=== PATIENT | male | born 1950 | race Caucasian/White ===

== ENCOUNTER 2017-08-22 11:30 | Inpatient (IN) | payer MEDICARE ==
[~2017-08-22] VITALS: Ht 175.3 cm; Wt 77.6 kg
[2017-08-22 11:25] VITALS: BP 130/80
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
[2017-08-22] MEDS ORDERED: ONDANSETRON 4 MG (ZOFRAN) ORAL DISSOLVE TAB PO PRN (12:45)
[2017-08-22] MEDS ORDERED: cloNIDine 0.1 MG (CATAPRES) TAB PO PRN (12:45)
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
--- NOTE | 2017-08-22 13:10 | PM&R Post Admission Assessment ---
Post Admission Physician Asses The preadmission screen agrees with the post admission assessment that the patient is a good candidate for inpatient rehabilitation. The patient will have a comprehensive program of inpatient rehabilitation with a goal of maximizing level of functional independence prior to discharge home with family and HHC. The patient will have PT/OT ninety minutes per day, each discipline, five days a week for gait, strengthening, conditioning, balance, ADLs, any patient/family/caregiver training as necessary. Speech therapy to do cognitive assessment and treat as indicated. Rehabilitation nursing to assist with bowel, bladder, skin, wound care, medication administration, pain management. 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 SCD's for DVT prophylaxis. He appears to be well motivated to participate in three hours of therapy a day. He should be able to tolerate three hours of therapy a day from a medical standpoint. He should benefit from the three hours of therapy a day. He has a reasonable discharge plan, reasonable discharge rehabilitation goals and a supportive family. He has various comorbidities that need to be closely monitored with medications and treatments adjusted on a daily basis as needed. These include: COPD DM Barriers to discharge for this patient who had been independent prior to this are for him to be modified independent to supervision for ADLs and mobility skills prior to discharge home with family and HHC, so as to lessen the burden of the caregivers. Risks for this patient include: 1. Fall 2. Fracture 3. DVT 4. Pulmonary embolism 5. Exacerbation of COPD 6. Skin breakdown 7. Contractures 8. Poorly controlled pain 9. Urinary retention 10. UTI 11. Respiratory infection 12. Aspiration 13. Poorly controlled DM Estimated Length of Stay: 21 days Prognosis: Rehab prognosis appears good for goal of discharge home with family and HHC modified independent to supervision for ADLs and mobility skills. WINDY BERKOWITZ MD Aug 22, 2017 13:10
[2017-08-22] MEDS ORDERED: CHLO473M MM (13:17)
[2017-08-22] MEDS ORDERED: INSU100V16 SQ (13:17)
[2017-08-22] MEDS ORDERED: NYST1000 PO (13:17)
[2017-08-22] MEDS ORDERED: CARV6.252 PEG (13:17)
[2017-08-22] MEDS ORDERED: DOCU50LI PEG (13:17)
[2017-08-22] MEDS ORDERED: PROT1PAC2 PEG (13:17)
[2017-08-22] MEDS ORDERED: INSU100V5 SQ (13:17)
[2017-08-22] MEDS ORDERED: DILT30TA PEG (13:17)
[2017-08-22] MEDS ORDERED: THIA100T12 PEG (13:17)
[2017-08-22] MEDS ORDERED: CLON0.1T PEG ×2 (13:17)
[2017-08-22] MEDS ORDERED: TAMS0.4C2 PEG (13:17)
[2017-08-22] MEDS ORDERED: CLON1TAB3 PEG (13:17)
[2017-08-22] MEDS ORDERED: POLY15DR14 OU (13:17)
[2017-08-22] MEDS ORDERED: FINA5TAB6 PEG (13:17)
[2017-08-22] MEDS ORDERED: LACT-72 PEG (13:17)
[2017-08-22] MEDS ORDERED: ALBU2.5V4 NEB (13:17)
[2017-08-22] MEDS ORDERED: ACET160E28 PEG (13:24)
[2017-08-22] MEDS: BENEFIBER (FROM DIETARY) DOCUMENTATION PURPOSE ONLY PO SCH ×2 (14:04→17:00)
[2017-08-22] MEDS: DILTIAZEM 30 MG (CARDIZEM) TAB PO SCH ×2 (14:21→20:57)
[2017-08-22] MEDS: ARTIFICAL TEARS 0.4 ML UNIT DOSE (REFRESH PLUS) OU SCH ×3 (14:21→20:57)
--- NOTE | 2017-08-22 14:26 | Therapy Group Daily Note ---
Therapy Daily Group Note Exercises Stretching Other/Notes Pt. attended group PT OT session. Pt. walked with SBA to from using FWW. Pt. with mask insitu for precautions however pt. would not leave mask on and stated he was very uncomfortable leaving it on and was assisted back to room after 35m attendance at group session. Introductions and socialization activity with table games i.e. cards, dominoes, and puzzle assembly. Pt did not reach forward to play at table etc. Activities included dynamic sitting, core strength and endurance, memorization, sequencing,visual motor and fine motor. this pt. very social, shared and participated well in all activities. In room after with young at hand and up in recliner with alarm insitu. Start Time: 13:00 Stop Time: 13:35 Total Billed Treatment Time: 35 Total Billed Treatment 1,GRP HANS WOOD ADOBE DEVELOPER Aug 22, 2017 14:25
[2017-08-22] MEDS: RT-ALBUTEROL/IPRATROPIUM 3 ML (DUONEB) VIAL INH SCH ×3 (14:49→21:55)
--- NOTE | 2017-08-22 14:51 | Occupational Ther Daily Note ---
OT Current Status-Daily Note Subjective Pt seen in room, up in recliner after group, agreeable to OT. Pt indicated that L forearm was sore from IV site Appearance Alert, cooperative, slow processing and moving Mental Status/Objective Functional [place] Measure 0=Not Assessed/NA 4=Minimal Assistance 1=Total Assistance 5=Supervision or Setup 2=Maximal Assistance 6=Modified [place] 3=Moderate Assistance 7=Complete [place] ADL-Treatment Functional [place] Measure 0=Not Assessed/NA 4=Minimal Assistance 1=Total Assistance 5=Supervision or Setup 2=Maximal Assistance 6=Modified [place] 3=Moderate Assistance 7=Complete IndependenceIRFPAI Quality Coding Scale 6 Independent with activity with or without an assistive device 5 Patient requires set up or clean up by helper. Patient completes activity by themselves 4 Supervision or touching assist (CGA). [place] provide cues , steadying assist 3 The helper provides less than half the effort to complete the activity 2 The helper provides more than half the effort to complete the activity 1 Dependent. The helper does all the effort to complete an activity 7 Patient refused to complete or attempt activity 9 The patient did not perform the activity before the current illness or injury 88 Not attempted due to Medical conditions or safety concerns Eating (FIM): 5 (Setup, supervision. Able to get food to mouth, get drink from can. has dentures) Eating (QC): 4 (supervision) Grooming (FIM): 5 (Supervision and skilled cues. Pt brushed upper denture two times and needed cue to brush lower one. Tried to put toothpaste on brush twice. Washed face and hands with setup, supervision, cues. Did not shave or brush hair (it is very short)) Oral Hygiene (QC): 4 (Supervision) Bathing (FIM): 3 (Skilled cues to wash each body part, sponge bath up in recliner. Help needed to wash lower legs and bottom. CGA to stand to wash bottom , FWW) Bathing Location: L Arm, R Arm, L Upper Leg, R Upper Leg, Chest, Abdomen, Perineal Area Shower/Bathe Self (QC): 3 Upper Body (FIM): 4 (Donned t shirt very slowly and with skilled cues. Help to pull shirt down. Cues to initiate and to continue donning. ) Upper Body Dressing (QC): 3 Lower Body Dressing (FIM): 2 (Help to place feet in pants and depends. Pt stood CGA, FWW with cues for hand placement. Assist needed to pull pants up in back. Able to get one slipper sock off but not other and unable to don them. Pt reported pain in his back when bending forward to put socks and pants on) Lower Body Dressing (QC): 2 On/Off Footwear (QC): 2 (Able to take on off but not other and unable to put socks on. 25%) Toileting (FIM): 1 (Assist needed to manage clothing and hygiene. ) Toileting Hygiene (QC): 1 Toilet/Commode Transfer (FIM): 3 (Mod assist off and on tall toilet, grab bar on R) Toilet Transfer (QC): 3 Pt was left up in recliner, chair alarm on, all needs met. Pt may benefit from regular recliner instead of power left chair because he tends to try to push foot rest down with his legs. Education OT Patient Education: Modified ADL techniques, Purpose of tx/functional activities, Safety issues, Transfer techniques Teaching Recipient: Patient Teaching Methods: Demonstration, Discussion Response to Teaching: Verbalize Understanding, Return Demonstration, Reinforcement Needed OT Short Term Goals Short Term Goals Time Frame: Sep 05, 2017 Eating(FIM): 5 Grooming(FIM): 5 Toileting(FIM): 3 Toilet/Commode Transfer(FIM): 4 Additional Short Term Goals: 1-Demonstrate ADL Tasks, 2-Verbalize Understanding , 3-ImproveStrength/Harmony 1=Demonstrate adherence to instructed precautions during ADL tasks. 2=Patient will verbalize/demonstrate understanding of assistive devices/ modifications for ADL. 3=Patient will improve strength/tolerance for activity to enable patient to perform ADL's. OT Cold Food Packer Goals Cold Food Packer Goals Time Frame: Sep 26, 2017 Eating (FIM): 6 Eating (QC): 6 Groomin Oral Hygiene (QC): 6 Bathing(FIM): 5 Shower/Bathe Self (QC): 5 Upper Body Dressing(FIM): 6 Upper Body Dressing (QC): 6 Lower Body Dressing(FIM): 6 Lower Body Dressing (QC): 6 On/Off Footwear (QC): 6 Toileting(FIM): 6 Toileting Hygiene (QC): 6 Toilet/Commode Transfer(FIM): 6 Toilet/Commode Transfer (QC): 6 Shower Transfer(FIM): 5 Comprehension(FIM): 4 Expression (FIM): 5 Social Interaction(FIM): 5 Problem Solving(FIM): 4 Memory(FIM): 4 Additional Goals: 1-Demonstrate ADL Tasks, 2-Verbalize Understanding, 3- ImproveStrength/Harmony 1=Demonstrate adherence to instructed precautions during ADL tasks. 2=Patient will verbalize/demonstrate understanding of assistive devices/ modifications for ADL. 3=Patient will improve strength/tolerance for activity to enable patient to perform ADL's. OT Education/Plan Problem List/Assessment Pt would benefit from skilled OT to increase his independence in basic self care to allow him to safely return to his home or other appropriate placement and to decrease caregiver burden. Discharge Recommendations Plan/Recommendations: Continue POC Treatment Plan/Plan of Care Patient would benefit from OT for education, treatment and training to promote independence in ADL's, mobility, safety and/or upper extremity function for ADL' s. Plan of Care: ADL Retraining, Functional Mobility, Group Exercise/Act as Ind ( educ, exercise, memory, socialization, funct activity, problem solving) Treatment Duration: Sep 26, 2017 Frequency: At least 5 of 7 days/Wk (IRF) Estimated Hrs Per Day: 1.5 hours per day (1.25 to 1.5 hours) Agreement: Yes Rehab Potential: Fair Time/GCodes Start Time: 13:35 Stop Time: 14:35 Total Time Billed (hr/min): 60 Billed Treatment Time visit, 60 minutes ADL SCHUYLER ALVARADO OT Aug 22, 2017 14:51
--- NOTE | 2017-08-22 14:53 | Physical Therapy Daily Note ---
PT Daily Note-Current Subjective Patient in recliner pre tx, agrees to PT, has no complaints of pain. Appearance Patient in recliner post tx with nurse call, phone, tray, all needs met, chair alarm on. Mental Status Patient Orientation: Person Attachments: PEG Tube Transfers Functional [place] Measure 0=Not Assessed/NA 4=Minimal Assistance 1=Total Assistance 5=Supervision or Setup 2=Maximal Assistance 6=Modified [place] 3=Moderate Assistance 7=Complete IndependenceIRFPAI Quality Coding Scale 6 Independent with activity with or without an assistive device 5 Patient requires set up or clean up by helper. Patient completes activity by themselves 4 Supervision or touching assist (CGA). [place] provide cues , steadying assist 3 The helper provides less than half the effort to complete the activity 2 The helper provides more than half the effort to complete the activity 1 Dependent. The helper does all the effort to complete an activity 7 Patient refused to complete or attempt activity 9 The patient did not perform the activity before the current illness or injury 88 Not attempted due to Medical conditions or safety concerns Weight Bearing Right Lower Extremity: Right Full Weight Bearing Left Lower Extremity: Left Full Weight Bearing Exercises Seated Therapy Exercises: Ankle pumps, Long arc quads, Hip flexion, Hamstring Curls, Hip abd/add Seated Reps: 20 Treatments functional strengthening Assessment Current Status: Fair Progress patient had a hard time with hip flexion due to weakness PT Property And Equipment Clerk Goals Property And Equipment Clerk Goals PT Care Home Goals Time Frame: Sep 26, 2017 Transfers (B,C,W/C) (FIM): 6 Sit to Lying (QC): 6 Lying-Sitting on Side/Bed(QC): 6 Sit to Stand (QC): 6 Rollin Roll Left to Right (QC): 6 Chair/Byx-ta-Mcqtc Xfer(QC): 6 Car Transfer (QC): 6 Does the Patient Walk: Yes Gait (FIM): 6 Gait distance (FIM): 3=150 ft Distance: >300' Walk 10 feet (QC): 6 Walk 10ft-Uneven Surface(QC): 6 Walk 50ft with 2 Turns (QC): 6 Walk 150 ft (QC): 6 Gait Level of Assist: 6 Gait Assistive Device: FWW Stairs (FIM): 5 # of Steps: 12 1 Step (curb) (QC): 5 4 Steps (QC): 5 12 Steps (QC): 5 Stairs Level Of Assist: 5 Picking up an Object (QC): 5 PT Plan Problem List Problem List: Activity Tolerance, Functional Strength, Safety, Balance, Gait, Transfer, Bed Mobility, ROM Treatment/Plan Treatment Plan: Continue Plan of Care Treatment Plan: Bed Mobility, Education, Functional Activity Harmony, Functional Strength, Group Therapy, Gait, Safety, Therapeutic Exercise, Transfers Treatment Duration: Sep 26, 2017 Frequency: At least 5 of 7 days/Wk (IRF) Estimated Hrs Per Day: 1.5 hours per day Patient and/or Family Agrees t: Yes Safety Risks/Education Patient Education: Correct Positioning, Safety Issues Teaching Recipient: Patient Teaching Methods: Demonstration, Discussion Response to Teaching: Reinforcement Needed Time/GCodes Time In: 1435 Time Out: 1445 Total Billed Treatment Time: 10 Total Billed Treatment 1 visit EX FREDY ROSS PT Aug 22, 2017 14:53
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
[2017-08-22] MEDS: inSUlin ASPART (NovoLOG) 1 UNIT/0.01 ML (CHARGE PER UNIT) SC SCH ×2 (16:23→21:04)
[2017-08-22] MEDS: CEFEPIME INJECTION 2,000 MG in NS (IVPB) 50 ML IV SCH ×2 (16:52→22:26)
[2017-08-22 18:28] VITALS: BP 120/75
[2017-08-22] MEDS: NYSTATIN ORAL SUSP 5 ML UDC PO SCH ×2 (18:46→23:59)
[2017-08-22] MEDS: clonazePAM 1 MG (KlonoPIN) TAB PO PRN (20:57)
[2017-08-22] MEDS: CHLORHEXIDINE 0.12% SOLN 15 ML (PERIDEX) UDC PO SCH (20:57)
[2017-08-22] MEDS: CARVEDILOL 6.25 MG (COREG) TAB PO SCH (20:57)
[2017-08-22] MEDS: DOCUSATE SODIUM 100 MG (COLACE) CAP PO SCH (20:57)
[2017-08-22] MEDS: cloNIDine 0.1 MG (CATAPRES) TAB PO SCH (20:58)
[2017-08-22] MEDS ORDERED: CIPROFLOXACIN 500 MG (CIPRO) TABLET PO SCH (21:00)
[2017-08-23] MEDS: RT-ALBUTEROL/IPRATROPIUM 3 ML (DUONEB) VIAL INH SCH ×6 (02:09→22:58)
[2017-08-23 05:00] VITALS: BP 127/79
[2017-08-23] MEDS: CEFEPIME INJECTION 2,000 MG in NS (IVPB) 50 ML IV SCH ×3 (05:45→23:06)
[2017-08-23] MEDS: NYSTATIN ORAL SUSP 5 ML UDC PO SCH ×4 (05:45→23:00)
[2017-08-23] MEDS: inSUlin ASPART (NovoLOG) 1 UNIT/0.01 ML (CHARGE PER UNIT) SC SCH ×4 (05:45→21:05)
[2017-08-23] MEDS: THIAMINE 100 MG (VITAMIN B-1) TAB PO SCH (05:45)
--- NOTE | 2017-08-23 07:55 | Physical Therapy Daily Note ---
PT Daily Note-Current Subjective Patient in recliner pre tx, agrees to PT, has complaints of back pain but will not rate. Nurse notified. Appearance Patient in recliner post tx with nurse call, phone, tray, chair alarm on, all needs met. Mental Status Patient Orientation: Person, Situation Transfers Functional [place] Measure 0=Not Assessed/NA 4=Minimal Assistance 1=Total Assistance 5=Supervision or Setup 2=Maximal Assistance 6=Modified [place] 3=Moderate Assistance 7=Complete IndependenceIRFPAI Quality Coding Scale 6 Independent with activity with or without an assistive device 5 Patient requires set up or clean up by helper. Patient completes activity by themselves 4 Supervision or touching assist (CGA). [place] provide cues , steadying assist 3 The helper provides less than half the effort to complete the activity 2 The helper provides more than half the effort to complete the activity 1 Dependent. The helper does all the effort to complete an activity 7 Patient refused to complete or attempt activity 9 The patient did not perform the activity before the current illness or injury 88 Not attempted due to Medical conditions or safety concerns Transfers (B, C, W/C) (FIM): 4 Sit to/from Stand: 4 CGA, cues for hand placement, has trouble placing his left hand Weight Bearing Right Lower Extremity: Right Full Weight Bearing Left Lower Extremity: Left Full Weight Bearing Gait Training Gait (FIM): 2 Distance: 120' Gait Level of Assist: 4 Gait Persons Needed: 1 Gait Assistive Device: FWW slow, shaky Exercises Seated Therapy Exercises: Ankle pumps, Long arc quads Seated Reps: 20 Assessment Current Status: Fair Progress improving endurance and strength PT Jail Goals Jail Goals PT Jail Goals Time Frame: Sep 26, 2017 Transfers (B,C,W/C) (FIM): 6 Sit to Lying (QC): 6 Lying-Sitting on Side/Bed(QC): 6 Sit to Stand (QC): 6 Rollin Roll Left to Right (QC): 6 Chair/Uaa-cp-Zzugh Xfer(QC): 6 Car Transfer (QC): 6 Does the Patient Walk: Yes Gait (FIM): 6 Gait distance (FIM): 3=150 ft Distance: >300' Walk 10 feet (QC): 6 Walk 10ft-Uneven Surface(QC): 6 Walk 50ft with 2 Turns (QC): 6 Walk 150 ft (QC): 6 Gait Level of Assist: 6 Gait Assistive Device: FWW Stairs (FIM): 5 # of Steps: 12 1 Step (curb) (QC): 5 4 Steps (QC): 5 12 Steps (QC): 5 Stairs Level Of Assist: 5 Picking up an Object (QC): 5 PT Plan Problem List Problem List: Activity Tolerance, Functional Strength, Safety, Balance, Gait, Transfer, Bed Mobility, ROM Treatment/Plan Treatment Plan: Continue Plan of Care Treatment Plan: Bed Mobility, Education, Functional Activity Harmony, Functional Strength, Group Therapy, Gait, Safety, Therapeutic Exercise, Transfers Treatment Duration: Sep 26, 2017 Frequency: At least 5 of 7 days/Wk (IRF) Estimated Hrs Per Day: 1.5 hours per day Patient and/or Family Agrees t: Yes Safety Risks/Education Patient Education: Gait Training, Transfer Techniques, Correct Positioning, Safety Issues Teaching Recipient: Patient Teaching Methods: Demonstration, Discussion Response to Teaching: Reinforcement Needed Time/GCodes Time In: 735 Time Out: 750 Total Billed Treatment Time: 15 Total Billed Treatment 1 visit GT 10' EX 5' FREDY STANLEY PT Aug 23, 2017 07:55
[2017-08-23] MEDS: ARTIFICAL TEARS 0.4 ML UNIT DOSE (REFRESH PLUS) OU SCH ×4 (08:44→20:10)
[2017-08-23] MEDS: ACETAMINOPHEN 500 MG TAB (TYLENOL) PO PRN (08:44)
[2017-08-23] MEDS: CHLORHEXIDINE 0.12% SOLN 15 ML (PERIDEX) UDC PO SCH ×2 (08:44→20:10)
[2017-08-23] MEDS: ALFUZOSIN HCL 10 MG TAB (UROXATRAL) PO SCH (08:45)
[2017-08-23] MEDS: cloNIDine 0.1 MG (CATAPRES) TAB PO SCH ×2 (08:45→20:10)
[2017-08-23] MEDS: CARVEDILOL 6.25 MG (COREG) TAB PO SCH ×2 (08:45→20:10)
[2017-08-23] MEDS: DILTIAZEM 30 MG (CARDIZEM) TAB PO SCH ×3 (08:45→20:11)
[2017-08-23] MEDS: inSUlin DETERMIR 1 UNIT/0.01 ML (LEVEMIR) CHARGE PER UNIT SQ SCH (08:45)
[2017-08-23] MEDS: FINASTERIDE (PROSCAR) 5 MG TAB PO SCH (08:45)
[2017-08-23] MEDS: DOCUSATE SODIUM 100 MG (COLACE) CAP PO SCH ×2 (08:45→20:10)
[2017-08-23 17:11] VITALS: BP 114/72
[2017-08-24] MEDS: RT-ALBUTEROL/IPRATROPIUM 3 ML (DUONEB) VIAL INH SCH ×5 (02:38→18:13)
[2017-08-24 06:00] VITALS: BP 113/81
[2017-08-24] MEDS: THIAMINE 100 MG (VITAMIN B-1) TAB PO SCH (06:04)
[2017-08-24] MEDS: CEFEPIME INJECTION 2,000 MG in NS (IVPB) 50 ML IV SCH ×3 (06:04→23:25)
[2017-08-24] MEDS: NYSTATIN ORAL SUSP 5 ML UDC PO SCH ×4 (06:04→23:25)
[2017-08-24] MEDS: inSUlin ASPART (NovoLOG) 1 UNIT/0.01 ML (CHARGE PER UNIT) SC SCH ×4 (06:26→20:24)
[2017-08-24 09:10] VITALS: BP 118/72
[2017-08-24] MEDS: cloNIDine 0.1 MG (CATAPRES) TAB PO SCH ×2 (09:11→20:25)
[2017-08-24] MEDS: DILTIAZEM 30 MG (CARDIZEM) TAB PO SCH ×3 (09:11→20:24)
[2017-08-24] MEDS: ARTIFICAL TEARS 0.4 ML UNIT DOSE (REFRESH PLUS) OU SCH ×4 (09:11→20:25)
[2017-08-24] MEDS: DOCUSATE SODIUM 100 MG (COLACE) CAP PO SCH ×2 (09:11→20:25)
[2017-08-24] MEDS: CARVEDILOL 6.25 MG (COREG) TAB PO SCH ×2 (09:11→20:25)
[2017-08-24] MEDS: CHLORHEXIDINE 0.12% SOLN 15 ML (PERIDEX) UDC PO SCH ×2 (09:12→20:25)
[2017-08-24] MEDS: FINASTERIDE (PROSCAR) 5 MG TAB PO SCH (09:12)
[2017-08-24] MEDS: ALFUZOSIN HCL 10 MG TAB (UROXATRAL) PO SCH (09:12)
[2017-08-24] MEDS: inSUlin DETERMIR 1 UNIT/0.01 ML (LEVEMIR) CHARGE PER UNIT SQ SCH (09:18)
[2017-08-24 17:35] VITALS: BP 106/70
[2017-08-25] MEDS: inSUlin ASPART (NovoLOG) 1 UNIT/0.01 ML (CHARGE PER UNIT) SC SCH ×4 (04:48→21:46)
[2017-08-25 05:49] VITALS: BP 116/74
[2017-08-25] MEDS: NYSTATIN ORAL SUSP 5 ML UDC PO SCH ×4 (06:30→23:06)
[2017-08-25] MEDS: CEFEPIME INJECTION 2,000 MG in NS (IVPB) 50 ML IV SCH ×3 (06:30→23:06)
[2017-08-25] MEDS: THIAMINE 100 MG (VITAMIN B-1) TAB PO SCH (06:30)
[2017-08-25] MEDS: RT-ALBUTEROL/IPRATROPIUM 3 ML (DUONEB) VIAL INH SCH ×3 (06:56→19:12)
[2017-08-25] MEDS: DOCUSATE SODIUM 100 MG (COLACE) CAP PO SCH ×2 (08:18→21:46)
[2017-08-25] MEDS: CARVEDILOL 6.25 MG (COREG) TAB PO SCH ×2 (08:18→21:46)
[2017-08-25] MEDS: cloNIDine 0.1 MG (CATAPRES) TAB PO SCH ×2 (08:18→21:46)
[2017-08-25] MEDS: CHLORHEXIDINE 0.12% SOLN 15 ML (PERIDEX) UDC PO SCH ×2 (08:18→21:45)
[2017-08-25] MEDS: ARTIFICAL TEARS 0.4 ML UNIT DOSE (REFRESH PLUS) OU SCH ×4 (08:19→21:45)
[2017-08-25] MEDS: ALFUZOSIN HCL 10 MG TAB (UROXATRAL) PO SCH (08:19)
[2017-08-25] MEDS: DILTIAZEM 30 MG (CARDIZEM) TAB PO SCH ×3 (08:19→21:45)
[2017-08-25] MEDS: inSUlin DETERMIR 1 UNIT/0.01 ML (LEVEMIR) CHARGE PER UNIT SQ SCH (08:19)
[2017-08-25] MEDS: FINASTERIDE (PROSCAR) 5 MG TAB PO SCH (08:19)
--- NOTE | 2017-08-25 08:59 | Physical Therapy Daily Note ---
PT Daily Note-Current Subjective Patient in recliner pre tx, agrees to PT, has complaints of pain in his hand when using the walker but will not give a pain level. No pain at rest. Appearance Patient in recliner post tx with nurse call,phone, tray, chair alarm on, all needs met. Mental Status Patient Orientation: Person, Situation Transfers Functional [place] Measure 0=Not Assessed/NA 4=Minimal Assistance 1=Total Assistance 5=Supervision or Setup 2=Maximal Assistance 6=Modified [place] 3=Moderate Assistance 7=Complete IndependenceIRFPAI Quality Coding Scale 6 Independent with activity with or without an assistive device 5 Patient requires set up or clean up by helper. Patient completes activity by themselves 4 Supervision or touching assist (CGA). [place]ie provide cues , steadying assist 3 The helper provides less than half the effort to complete the activity 2 The helper provides more than half the effort to complete the activity 1 Dependent. The helper does all the effort to complete an activity 7 Patient refused to complete or attempt activity 9 The patient did not perform the activity before the current illness or injury 88 Not attempted due to Medical conditions or safety concerns Transfers (B, C, W/C) (FIM): 4 Sit to/from Stand: 4 CGA, cues for safety and hand placement, will try to keep hands on walker to stand and sit every time unless cued to do it correctly Weight Bearing Right Lower Extremity: Right Full Weight Bearing Left Lower Extremity: Left Full Weight Bearing Gait Training Gait (FIM): 4 Distance: 100'x2, 200'x2 Gait Level of Assist: 4 Gait Persons Needed: 1 Gait Assistive Device: FWW CGA, slow ambulation, cues for direction Exercises LAQ alternating for 5 min with 2# ankle weights NuStep Minutes: 15 NuStep Workload: 5 Treatments transfers, ambulation, functional strengthening to improve ambulation Assessment Current Status: Fair Progress improving endurance, gets distracted easily and needs reoriented PT Reel Worker Goals Reel Worker Goals PT Detention Goals Time Frame: Sep 26, 2017 Transfers (B,C,W/C) (FIM): 6 Sit to Lying (QC): 6 Lying-Sitting on Side/Bed(QC): 6 Sit to Stand (QC): 6 Rollin Roll Left to Right (QC): 6 Chair/Ksk-wg-Gfqmb Xfer(QC): 6 Car Transfer (QC): 6 Does the Patient Walk: Yes Gait (FIM): 6 Gait distance (FIM): 3=150 ft Distance: >300' Walk 10 feet (QC): 6 Walk 10ft-Uneven Surface(QC): 6 Walk 50ft with 2 Turns (QC): 6 Walk 150 ft (QC): 6 Gait Level of Assist: 6 Gait Assistive Device: FWW Stairs (FIM): 5 # of Steps: 12 1 Step (curb) (QC): 5 4 Steps (QC): 5 12 Steps (QC): 5 Stairs Level Of Assist: 5 Picking up an Object (QC): 5 PT Plan Problem List Problem List: Activity Tolerance, Functional Strength, Safety, Balance, Gait, Transfer, Bed Mobility, ROM Treatment/Plan Treatment Plan: Continue Plan of Care Treatment Plan: Bed Mobility, Education, Functional Activity Harmony, Functional Strength, Group Therapy, Gait, Safety, Therapeutic Exercise, Transfers Treatment Duration: Sep 26, 2017 Frequency: At least 5 of 7 days/Wk (IRF) Estimated Hrs Per Day: 1.5 hours per day Patient and/or Family Agrees t: Yes Safety Risks/Education Patient Education: Gait Training, Transfer Techniques, Correct Positioning, Safety Issues Teaching Recipient: Patient Teaching Methods: Demonstration, Discussion Response to Teaching: Reinforcement Needed Time/GCodes Time In: 800 Time Out: 859 Total Billed Treatment Time: 59 Total Billed Treatment 1 visit EX 20' FA 10' GT 29' FREDY STANLEY PT Aug 25, 2017 08:59
[2017-08-25] MEDS: ACETAMINOPHEN 500 MG TAB (TYLENOL) PO PRN (10:38)
--- NOTE | 2017-08-25 12:59 | Occupational Ther Daily Note ---
OT Current Status-Daily Note Subjective Pt seen in room, up in recliner, agreeable to OT. No pain mentioned. Appearance Alert, cooperative Mental Status/Objective Functional [place] Measure 0=Not Assessed/NA 4=Minimal Assistance 1=Total Assistance 5=Supervision or Setup 2=Maximal Assistance 6=Modified [place] 3=Moderate Assistance 7=Complete [place] ADL-Treatment Pt was agreeable to sponge bath and changing clothes. He needed setup, supervision and skilled cues to initiate individual steps in activities. When bathing, after he washed arms, OT said, "What's next?" and he replied, "I don't know." He did indicate that wringing out wash cloth hurt his L hand and wrist so technique modified. At end of tx, pt left up in recliner, chair alarm on, eating lunch, all needs met. Functional [place] Measure 0=Not Assessed/NA 4=Minimal Assistance 1=Total Assistance 5=Supervision or Setup 2=Maximal Assistance 6=Modified [place] 3=Moderate Assistance 7=Complete IndependenceIRFPAI Quality Coding Scale 6 Independent with activity with or without an assistive device 5 Patient requires set up or clean up by helper. Patient completes activity by themselves 4 Supervision or touching assist (CGA). [place] provide cues , steadying assist 3 The helper provides less than half the effort to complete the activity 2 The helper provides more than half the effort to complete the activity 1 Dependent. The helper does all the effort to complete an activity 7 Patient refused to complete or attempt activity 9 The patient did not perform the activity before the current illness or injury 88 Not attempted due to Medical conditions or safety concerns Eating (FIM): 5 (Needed skilled cues to initiate eating. Setup. Pt up in recliner to eat. ) Grooming (FIM): 5 (Washed face and hands with cues to intiate, setup, supervision) Bathing (FIM): 5 (Washed and dried all parts except back but skilled cues needed to wash each part. SBA to stand to wash michael and bottom, FWW) Upper Body (FIM): 4 (setup to don clean t shirt but he put R arm in neck hole and was unable to problem solve to correct it without help) Lower Body Dressing (FIM): 3 (Able to get slipper socks off but not put them on. Difficulty getting feet into Depends but could get shorts on over feet. Reported back pain when bending forward for dressing. FWW. SBA to stand to pull pants up. ) Frequent reminders for hand placement for sit to stand and stand to sit. Education OT Patient Education: Modified ADL techniques, Purpose of tx/functional activities, Transfer techniques Teaching Recipient: Patient Teaching Methods: Demonstration, Discussion Response to Teaching: Verbalize Understanding, Return Demonstration, Reinforcement Needed OT Short Term Goals Short Term Goals Time Frame: Sep 05, 2017 Eating(FIM): 5 Grooming(FIM): 5 Toileting(FIM): 3 Toilet/Commode Transfer(FIM): 4 Additional Short Term Goals: 1-Demonstrate ADL Tasks, 2-Verbalize Understanding , 3-ImproveStrength/Harmony 1=Demonstrate adherence to instructed precautions during ADL tasks. 2=Patient will verbalize/demonstrate understanding of assistive devices/ modifications for ADL. 3=Patient will improve strength/tolerance for activity to enable patient to perform ADL's. OT Fpc Goals Fpc Goals Time Frame: Sep 26, 2017 Eating (FIM): 6 Eating (QC): 6 Groomin Oral Hygiene (QC): 6 Bathing(FIM): 5 Shower/Bathe Self (QC): 5 Upper Body Dressing(FIM): 6 Upper Body Dressing (QC): 6 Lower Body Dressing(FIM): 6 Lower Body Dressing (QC): 6 On/Off Footwear (QC): 6 Toileting(FIM): 6 Toileting Hygiene (QC): 6 Toilet/Commode Transfer(FIM): 6 Toilet/Commode Transfer (QC): 6 Shower Transfer(FIM): 5 Comprehension(FIM): 4 Expression (FIM): 5 Social Interaction(FIM): 5 Problem Solving(FIM): 4 Memory(FIM): 4 Additional Goals: 1-Demonstrate ADL Tasks, 2-Verbalize Understanding, 3- ImproveStrength/Harmony 1=Demonstrate adherence to instructed precautions during ADL tasks. 2=Patient will verbalize/demonstrate understanding of assistive devices/ modifications for ADL. 3=Patient will improve strength/tolerance for activity to enable patient to perform ADL's. OT Education/Plan Problem List/Assessment Pt would benefit from skilled OT to increase his independence in basic self care to allow him to safely return to his home or other appropriate placement and to decrease caregiver burden. Discharge Recommendations Plan/Recommendations: Continue POC Treatment Plan/Plan of Care Patient would benefit from OT for education, treatment and training to promote independence in ADL's, mobility, safety and/or upper extremity function for ADL' s. Plan of Care: ADL Retraining, Functional Mobility, Group Exercise/Act as Ind ( educ, exercise, memory, socialization, funct activity, problem solving) Treatment Duration: Sep 26, 2017 Frequency: At least 5 of 7 days/Wk (IRF) Estimated Hrs Per Day: 1.5 hours per day (1.25 to 1.5 hours) Agreement: Yes Rehab Potential: Fair Time/GCodes Start Time: 11:05 Stop Time: 12:05 Total Time Billed (hr/min): 60 Billed Treatment Time visit, 60 minutes ADL SCHUYLER ALVARADO OT Aug 25, 2017 12:59
--- NOTE | 2017-08-25 13:15 | PM & R (SOAP) Progress Note ---
Subjective Time Seen by Provider: 12:50 Subjective/Events-last exam Patient was seen in his room this afternoon Patient min assist for transfers Accucheks noted Objective Exam Last Set of Vital Signs Vital Signs Date Time Temp Pulse Resp B/P (MAP) Pulse Ox O2 Delivery O2 Flow Rate FiO2 08/25/17 10:26 94 Room Air 08/25/17 05:49 98.1 87 17 116/74 Capillary Refill : Less Than 3 Seconds I&O Intake and Output 08/26/17 00:00 Intake Total 450 ml Balance 450 ml Intake Oral 250 ml Tube Feeding 200 ml # Voids 2 General: Alert, Cooperative, No Acute Distress HEENT: Atraumatic, PERRLA, EOMI, Mucous Memb Moist/[place] Neck: Supple, No JVD Lungs: Clear to Auscultation Heart: Regular Rate Abdomen: Normal Bowel Sounds, Soft, No Tenderness, Other Extremities: No Edema (Strength 4-/5) Results Lab Laboratory Tests 08/22/17 16:03: Glucometer 144H 08/22/17 20:37: Glucometer 117H 08/23/17 05:37: Glucometer 81 08/23/17 10:44: Glucometer 97 08/23/17 15:11: Glucometer 57*L 08/23/17 15:33: Glucometer 66L 08/23/17 20:23: Glucometer 129H 08/24/17 06:18: Glucometer 92 08/24/17 11:05: Glucometer 111H 08/24/17 16:15: Glucometer 57*L 08/24/17 17:14: Glucometer 95 08/24/17 20:24: Glucometer 86 08/25/17 04:44: Glucometer 91 08/25/17 10:50: Glucometer 136H Assessment/Plan Assessment TBI with encephalopathy improving s/p decannulation S/P PEG on po feeds Frx left elbow s/p repair MRSA in sputum with contact precautions Plan Continue Pt/OT Team Conference 08-27-17 WINDY BERKOWITZ MD Aug 25, 2017 13:15
--- NOTE | 2017-08-25 13:22 | Individualized Plan of Care ---
Individualized Plan of Care Rehab Nursing IPOC Order Admission Date Aug 22, 2017 at 11:30 Current Orders Orders Admission-Acute Rehab Unit (08/22/17 13:01) Vital Signs: Routine 08,16,00 (08/22/17 13:01) Manager Engine-Inpt Rehab (08/22/17 13:01) Rehab Nursing Orders-Ipoc (08/22/17 13:01) Physical Therapy Rehab Orders (08/22/17 13:01) Occupational Therapy Rehab Ord (08/22/17 13:01) Speech Therapy Rehab Orders (08/22/17 13:01) Intake & Output 06,14,22 (08/22/17 13:01) Precautions (Aru) (08/22/17 13:01) Admission (Physician Order) (08/22/17 12:42) Code/Resuscitation (08/22/17 12:42) Initiate Admission Nursing Pro .admission (08/22/17 12:42) Isolation Central Supply Req (08/22/17 12:42) Occupational Therapy Rehab Ord (08/22/17 12:42) Request For Cognitive Services (08/22/17 12:42) Accucheck Achs ACHS (08/22/17 12:42) Carboxymethylcell Ophth Soln (Refresh Pl (08/22/17 13:00) Guar Gum (Benefiber (From Dietary) Docum (08/22/17 13:00) Carvedilol Tablet (Coreg Tablet) (08/22/17 21:00) Pharmacy Communication (Pharmacy Communi (08/22/17 12:45) Clonidine Tablet (Catapres Tablet) (08/22/17 21:00) Diltiazem Tablet (Cardizem Tablet) (08/22/17 13:00) Docusate Sodium Capsule (Colace Capsule) (08/22/17 21:00) Finasteride Tablet (Proscar Tablet) (08/23/17 09:00) Insulin Aspart (Novolog) (Novolog (Charg (08/22/17 16:00) Insulin Determir (Per Unit) (Levemir (Pe (08/23/17 09:00) Nystatin Oral Suspension (Mycostatin O (08/22/17 18:00) Thiamine Tablet (Vitamin B-1 Tablet) (08/23/17 07:00) Acetaminophen Tablet (Tylenol Tablet) (08/22/17 12:45) Albuterol/Ipra Inhalation Soln (Duoneb I (08/22/17 14:00) Svn Sm Volume Nebulizer Rt-Rfs (08/22/17 12:42) Clonazepam Tablet (Klonopin Tablet) (08/22/17 12:45) Clonidine Tablet (Catapres Tablet) (08/22/17 12:45) Ondansetron Oral Dissolve Tab (Zofran (08/22/17 12:45) Ciprofloxacin Tablet (Cipro Tablet) (08/22/17 21:00) Patient Visit (08/22/17 ) Speech Sound Lang Comp (08/22/17 ) Cho 60g/M 1snack (16-2000 Demlar) (08/22/17 Lunch) Cefepime Injection (Maxipime Injection) (08/22/17 15:00) Ciprofloxacin Tablet (Cipro Tablet) (08/28/17 09:00) Chlorhexidine 0.12% Oral Soln (Peridex 0 (08/22/17 21:00) Alfuzosin Tablet (Uroxatral Tablet) (08/23/17 09:00) Patient Visit (08/22/17 ) Pt Eval Moderate Complexity (08/22/17 ) Functional Activities, Ea 15 (08/22/17 ) Patient Visit (08/22/17 ) Therapeutic, Group (08/22/17 ) Patient Visit (08/22/17 ) Exercise Therap, Ea 15 Min (08/22/17 ) Cho 60g/M 1snack (16-2000 [place]) (08/22/17 Lunch) Consult Physician (08/22/17 17:45) Disposal Tray (Paper/Plastic) (08/22/17 18:55) Patient Visit (08/23/17 ) Gait Training, Ea 15 Min (08/23/17 ) Automatic Tray (08/23/17 10:57) Albuterol/Ipra Inhalation Soln (Duoneb I (08/25/17 07:00) Rehab Nursing Orders: Diseage Management, Edu in Press Rel Techn, Hydration Management, Nutrition Management, Pain Management Other Nursing Orders: Monitor for urinary retention and constipation Intensity of Therapy to be met Patient to be seen: Min.3h per day/5 of 7d PT IPOC Problem List: Activity Tolerance, Functional Strength, Safety, Balance, Gait, Transfer, Bed Mobility, ROM Treatment Plan: Continue Plan of Care Bed Mobility, Education, Functional Activity Harmony, Functional Strength, Group Therapy, Gait, Safety, Therapeutic Exercise, Transfers Treatment Duration: Sep 26, 2017 Frequency: At least 5 of 7 days/Wk (IRF) Estimated Hrs Per Day: 1.5 hours per day OT IPOC Problems: Decreased Activ Tolerance, Decreased Safety Aware, Decreased UE Strength, Dependent Transfers, Impaired Cognition, Impaired Coordination, Impaired Funct Balance, Impaired Self-Care Skills, Restricted Funct UE ROM OT Treatment, Training and Edu: Yes OT Problems Pt would benefit from skilled OT to increase his independence in basic self care to allow him to safely return to his home or other appropriate placement and to decrease caregiver burden. Plan of Care: ADL Retraining, Functional Mobility, Group Exercise/Act as Ind ( educ, exercise, memory, socialization, funct activity, problem solving) Treatment Duration: Sep 26, 2017 Frequency: At least 5 of 7 days/Wk (IRF) Estimated Hrs Per Day: 1.5 hours per day (1.25 to 1.5 hours) IPOC Speech Therapy Treatment Plan: Continue Plan of Care Treatment Duration: Sep 05, 2017 Frequency: Modified Program (IRF) (Three to Five Times Per Week) Estimated Hrs Per Day: .5 hour per day Manager Engine/Case Mgmt Manager Engine/Case Managemen: Discharge Planning, Patient/Family Counseling Physician IPOC Medical Issues being managed closely and that require the 24 hour availability of a physician: DM Medical Issues: Bowel/Bladder Function, DVT Prophylaxis, Falls Precautions, Fluid/Electrolyte/Nutrition Balance, Infection Protection, Pain Management, Other (List) (as per above) Brief Synthesis of Preadmission Screen, Post-Admission Evaluation, and Therapy Evaluations: 67 yo male s/p CHI with encephalopathy reffer to IRU for ongoing care and therapies.Had most recently been at [facility] in [facility].has had a repair of left elbow frx Medical Prognosis: good Anticipated Length of Stay: 09-26-17 Rehab Goals Modified Independent to supervision for adls and mobility skills Anticipated discharge destinat: Home with Family and [facility] WINDY BERKOWITZ MD Aug 25, 2017 13:22
--- NOTE | 2017-08-25 13:33 | Physical Therapy Daily Note ---
PT Daily Note-Current Subjective Agreeable to PT. No complaints. Transfers Functional [place] Measure 0=Not Assessed/NA 4=Minimal Assistance 1=Total Assistance 5=Supervision or Setup 2=Maximal Assistance 6=Modified [place] 3=Moderate Assistance 7=Complete IndependenceIRFPAI Quality Coding Scale 6 Independent with activity with or without an assistive device 5 Patient requires set up or clean up by helper. Patient completes activity by themselves 4 Supervision or touching assist (CGA). [place] provide cues , steadying assist 3 The helper provides less than half the effort to complete the activity 2 The helper provides more than half the effort to complete the activity 1 Dependent. The helper does all the effort to complete an activity 7 Patient refused to complete or attempt activity 9 The patient did not perform the activity before the current illness or injury 88 Not attempted due to Medical conditions or safety concerns Weight Bearing Right Lower Extremity: Right Full Weight Bearing Left Lower Extremity: Left Full Weight Bearing Treatments Pt is SBA with sit to stand all attempts with skilled cues 75% of the time to push up from the chair as well as to reach back. Pt ambulated x 150 ft, 50 ft and 125 ft with FWW with CGA. Up/down 4 steps with close CGA and reciprocal pattern. Pt with OT post treatment. Assessment Current Status: Good Progress Gait is slow with decreased step length and decreased heel strike/toe off. Pt unable to change gait pattern with verbal cues or attempts to increase speed. Pt pleasant and cooperative. PT Sharepoint Consultant Goals Sharepoint Consultant Goals PT Jail Goals Time Frame: Sep 26, 2017 Transfers (B,C,W/C) (FIM): 6 Sit to Lying (QC): 6 Lying-Sitting on Side/Bed(QC): 6 Sit to Stand (QC): 6 Rollin Roll Left to Right (QC): 6 Chair/Gir-ly-Vexxb Xfer(QC): 6 Car Transfer (QC): 6 Does the Patient Walk: Yes Gait (FIM): 6 Gait distance (FIM): 3=150 ft Distance: >300' Walk 10 feet (QC): 6 Walk 10ft-Uneven Surface(QC): 6 Walk 50ft with 2 Turns (QC): 6 Walk 150 ft (QC): 6 Gait Level of Assist: 6 Gait Assistive Device: FWW Stairs (FIM): 5 # of Steps: 12 1 Step (curb) (QC): 5 4 Steps (QC): 5 12 Steps (QC): 5 Stairs Level Of Assist: 5 Picking up an Object (QC): 5 PT Plan Problem List Problem List: Activity Tolerance, Functional Strength, Safety Treatment/Plan Treatment Plan: Continue Plan of Care Treatment Plan: Bed Mobility, Education, Functional Activity Harmony, Functional Strength, Group Therapy, Gait, Safety, Therapeutic Exercise, Transfers Treatment Duration: Sep 26, 2017 Frequency: At least 5 of 7 days/Wk (IRF) Estimated Hrs Per Day: 1.5 hours per day Patient and/or Family Agrees t: Yes Time/GCodes Time In: 1257 Time Out: 1330 Total Billed Treatment Time: 33 Total Billed Treatment visit GT 33 PIYUSH TAN PT Aug 25, 2017 13:33
--- NOTE | 2017-08-25 14:42 | Occupational Ther Daily Note ---
OT Current Status-Daily Note Subjective Pt seen in gym after PT, agreeable to OT, No pain mentioned Mental Status/Objective Functional [place] Measure 0=Not Assessed/NA 4=Minimal Assistance 1=Total Assistance 5=Supervision or Setup 2=Maximal Assistance 6=Modified [place] 3=Moderate Assistance 7=Complete [place] ADL-Treatment Functional [place] Measure 0=Not Assessed/NA 4=Minimal Assistance 1=Total Assistance 5=Supervision or Setup 2=Maximal Assistance 6=Modified [place] 3=Moderate Assistance 7=Complete IndependenceIRFPAI Quality Coding Scale 6 Independent with activity with or without an assistive device 5 Patient requires set up or clean up by helper. Patient completes activity by themselves 4 Supervision or touching assist (CGA). [place] provide cues , steadying assist 3 The helper provides less than half the effort to complete the activity 2 The helper provides more than half the effort to complete the activity 1 Dependent. The helper does all the effort to complete an activity 7 Patient refused to complete or attempt activity 9 The patient did not perform the activity before the current illness or injury 88 Not attempted due to Medical conditions or safety concerns Other Treatment Pt was able to do 6 minutes of bilat UE exercise with arm bike set at 15W resistance and able to keep L hand on bike handle. He reported that this exercise did not aggravate L wrist pain. He worked at a steady pace and did not take any breaks. he also did bilat ex with 1" pets with 1/4" stems, with no additional resistance on arms. He was able to manage pegs with R hand with no problems but had more difficulty picking up and placing pegs with L hand. He was unable to stop activity at midpoint and had to put all the pegs in before he could take them back out with L hand. Cues for hand placement for transfer. Pt walked back to room with SBA, FWW and was able to get into bed with some difficulty picking feet up. pt left in bed on his L side, pillow under knee, 4 rails up, bed alarm on, all needs met. Education OT Patient Education: Purpose of tx/functional activities, Transfer techniques Teaching Recipient: Patient Teaching Methods: Demonstration, Discussion Response to Teaching: Reinforcement Needed OT Short Term Goals Short Term Goals Time Frame: Sep 05, 2017 Eating(FIM): 5 Grooming(FIM): 5 Toileting(FIM): 3 Toilet/Commode Transfer(FIM): 4 Additional Short Term Goals: 1-Demonstrate ADL Tasks, 2-Verbalize Understanding , 3-ImproveStrength/Harmony 1=Demonstrate adherence to instructed precautions during ADL tasks. 2=Patient will verbalize/demonstrate understanding of assistive devices/ modifications for ADL. 3=Patient will improve strength/tolerance for activity to enable patient to perform ADL's. OT Senior Care Goals Former Hand Goals Time Frame: Sep 26, 2017 Eating (FIM): 6 Eating (QC): 6 Groomin Oral Hygiene (QC): 6 Bathing(FIM): 5 Shower/Bathe Self (QC): 5 Upper Body Dressing(FIM): 6 Upper Body Dressing (QC): 6 Lower Body Dressing(FIM): 6 Lower Body Dressing (QC): 6 On/Off Footwear (QC): 6 Toileting(FIM): 6 Toileting Hygiene (QC): 6 Toilet/Commode Transfer(FIM): 6 Toilet/Commode Transfer (QC): 6 Shower Transfer(FIM): 5 Comprehension(FIM): 4 Expression (FIM): 5 Social Interaction(FIM): 5 Problem Solving(FIM): 4 Memory(FIM): 4 Additional Goals: 1-Demonstrate ADL Tasks, 2-Verbalize Understanding, 3- ImproveStrength/Harmony 1=Demonstrate adherence to instructed precautions during ADL tasks. 2=Patient will verbalize/demonstrate understanding of assistive devices/ modifications for ADL. 3=Patient will improve strength/tolerance for activity to enable patient to perform ADL's. OT Education/Plan Problem List/Assessment Pt would benefit from skilled OT to increase his independence in basic self care to allow him to safely return to his home or other appropriate placement and to decrease caregiver burden. Discharge Recommendations Plan/Recommendations: Continue POC Treatment Plan/Plan of Care Patient would benefit from OT for education, treatment and training to promote independence in ADL's, mobility, safety and/or upper extremity function for ADL' s. Plan of Care: ADL Retraining, Functional Mobility, Group Exercise/Act as Ind ( educ, exercise, memory, socialization, funct activity, problem solving) Treatment Duration: Sep 26, 2017 Frequency: At least 5 of 7 days/Wk (IRF) Estimated Hrs Per Day: 1.5 hours per day (1.25 to 1.5 hours) Agreement: Yes Rehab Potential: Fair Time/GCodes Start Time: 13:30 Stop Time: 14:00 Total Time Billed (hr/min): 30 Billed Treatment Time visit, 30 minutes exercise SCHUYLER ALVARADO OT Aug 25, 2017 14:41
[2017-08-25 18:06] VITALS: BP 108/66
[2017-08-25] MEDS: clonazePAM 1 MG (KlonoPIN) TAB PO PRN (23:06)
[2017-08-26 06:06] VITALS: BP 102/64
[2017-08-26] MEDS: inSUlin ASPART (NovoLOG) 1 UNIT/0.01 ML (CHARGE PER UNIT) SC SCH ×4 (06:06→21:13)
[2017-08-26] MEDS: NYSTATIN ORAL SUSP 5 ML UDC PO SCH ×4 (06:06→23:02)
[2017-08-26] MEDS: CEFEPIME INJECTION 2,000 MG in NS (IVPB) 50 ML IV SCH ×3 (06:07→23:03)
[2017-08-26] MEDS: THIAMINE 100 MG (VITAMIN B-1) TAB PO SCH (06:07)
[2017-08-26] MEDS: RT-ALBUTEROL/IPRATROPIUM 3 ML (DUONEB) VIAL INH SCH ×4 (07:14→19:49)
[2017-08-26 08:50] VITALS: BP 104/67
[2017-08-26] MEDS: ALFUZOSIN HCL 10 MG TAB (UROXATRAL) PO SCH (08:52)
[2017-08-26] MEDS: DOCUSATE SODIUM 100 MG (COLACE) CAP PO SCH ×2 (08:52→20:11)
[2017-08-26] MEDS: CARVEDILOL 6.25 MG (COREG) TAB PO SCH ×2 (08:52→20:11)
[2017-08-26] MEDS: FINASTERIDE (PROSCAR) 5 MG TAB PO SCH (08:52)
[2017-08-26] MEDS: cloNIDine 0.1 MG (CATAPRES) TAB PO SCH ×2 (08:52→20:11)
[2017-08-26] MEDS: DILTIAZEM 30 MG (CARDIZEM) TAB PO SCH ×3 (08:52→20:11)
[2017-08-26] MEDS: CHLORHEXIDINE 0.12% SOLN 15 ML (PERIDEX) UDC PO SCH ×2 (08:53→20:10)
[2017-08-26] MEDS: inSUlin DETERMIR 1 UNIT/0.01 ML (LEVEMIR) CHARGE PER UNIT SQ SCH (08:53)
[2017-08-26] MEDS: ARTIFICAL TEARS 0.4 ML UNIT DOSE (REFRESH PLUS) OU SCH ×4 (08:57→20:10)
--- NOTE | 2017-08-26 08:59 | Physical Therapy Daily Note ---
PT Daily Note-Current Subjective Patient in recliner pre tx, agrees to PT, has no complaints of pain, but has some pain in his left hand when using the walker during ambulation. Appearance Patient in recliner post tx with nurse call, phone, tray, chair alarm on, all needs met. Mental Status Patient Orientation: Person, Situation Transfers Functional [place] Measure 0=Not Assessed/NA 4=Minimal Assistance 1=Total Assistance 5=Supervision or Setup 2=Maximal Assistance 6=Modified [place] 3=Moderate Assistance 7=Complete IndependenceIRFPAI Quality Coding Scale 6 Independent with activity with or without an assistive device 5 Patient requires set up or clean up by helper. Patient completes activity by themselves 4 Supervision or touching assist (CGA). [place] provide cues , steadying assist 3 The helper provides less than half the effort to complete the activity 2 The helper provides more than half the effort to complete the activity 1 Dependent. The helper does all the effort to complete an activity 7 Patient refused to complete or attempt activity 9 The patient did not perform the activity before the current illness or injury 88 Not attempted due to Medical conditions or safety concerns Transfers (B, C, W/C) (FIM): 5 Sit to/from Stand: 5 cues for safety and hand placement, will try to keep hands on walker during transfers every time unless reminded of correct hand placement. Weight Bearing Right Lower Extremity: Right Full Weight Bearing Left Lower Extremity: Left Full Weight Bearing Gait Training Gait (FIM): 4 Distance: 150', 100'x2 Gait Level of Assist: 4 Gait Persons Needed: 1 Gait Assistive Device: FWW CGA, cues for direction, very slow ambulation Exercises NuStep Minutes: 15 NuStep Workload: 5 Treatments transfers, ambulation, functional strengthening Assessment Current Status: Fair Progress improving ambulation but patient was not able to do as much functional exercises today because he was so slow with what he did do. Patient was very distracted and had to be redirected constantly. PT Care Home Goals Care Home Goals PT Care Home Goals Time Frame: Sep 26, 2017 Transfers (B,C,W/C) (FIM): 6 Sit to Lying (QC): 6 Lying-Sitting on Side/Bed(QC): 6 Sit to Stand (QC): 6 Rollin Roll Left to Right (QC): 6 Chair/Kyt-cw-Szprr Xfer(QC): 6 Car Transfer (QC): 6 Does the Patient Walk: Yes Gait (FIM): 6 Gait distance (FIM): 3=150 ft Distance: >300' Walk 10 feet (QC): 6 Walk 10ft-Uneven Surface(QC): 6 Walk 50ft with 2 Turns (QC): 6 Walk 150 ft (QC): 6 Gait Level of Assist: 6 Gait Assistive Device: FWW Stairs (FIM): 5 # of Steps: 12 1 Step (curb) (QC): 5 4 Steps (QC): 5 12 Steps (QC): 5 Stairs Level Of Assist: 5 Picking up an Object (QC): 5 PT Plan Problem List Problem List: Activity Tolerance, Functional Strength, Safety, Balance, Gait, Transfer, Bed Mobility Treatment/Plan Treatment Plan: Continue Plan of Care Treatment Plan: Bed Mobility, Education, Functional Activity Harmony, Functional Strength, Group Therapy, Gait, Safety, Therapeutic Exercise, Transfers Treatment Duration: Sep 26, 2017 Frequency: At least 5 of 7 days/Wk (IRF) Estimated Hrs Per Day: 1.5 hours per day Patient and/or Family Agrees t: Yes Safety Risks/Education Patient Education: Gait Training, Transfer Techniques, Correct Positioning, Safety Issues Teaching Recipient: Patient Teaching Methods: Demonstration, Discussion Response to Teaching: Reinforcement Needed Time/GCodes Time In: 800 Time Out: 900 Total Billed Treatment Time: 60 Total Billed Treatment 1 visit EX 15' FA 10' GT 35' FREDY STANLEY PT Aug 26, 2017 08:59
[2017-08-26 11:45] LABS: BASOPHILS % (AUTO) 1 % (0-10); EOSINOPHILS # (AUTO) 0.4 10^3/uL (0.0-0.3); EOSINOPHILS % (AUTO) 7 % (0-10); LYMPHOCYTES # (AUTO) 1.8 X 10^3 (1.0-4.0); LYMPHOCYTES % (AUTO) 29 % (12-44); MEAN CORPUSCULAR HEMOGLOBIN 29 PG (25-34); MEAN CORPUSCULAR HGB CONC 32 G/DL (32-36); MEAN CORPUSCULAR VOLUME 90 FL (80-99); MONOCYTES # (AUTO) 0.7 X 10^3 (0.0-1.0); MONOCYTES % (AUTO) 11 % (0-12); NEUTROPHILS # (AUTO) 3.2 X 10^3 (1.8-7.8); NEUTROPHILS % (AUTO) 52 % (42-75); PLATELET COUNT 290 10^3/uL (130-400); RED BLOOD COUNT 3.59 10^6/uL (4.35-5.85); RED CELL DISTRIBUTION WIDTH 14.5 % (10.0-14.5); WHITE BLOOD COUNT 6.1 10^3/uL (4.3-11.0)
[2017-08-26 11:58] LABS: ANION GAP 11 MMOL/L (5-14); BLOOD UREA NITROGEN 15 MG/DL (7-18); BUN/CREATININE RATIO 21; CARBON DIOXIDE 22 MMOL/L (21-32); CHLORIDE 105 MMOL/L (98-107); CREATININE SERUM 0.73 MG/DL (0.60-1.30); GFR ESTIMATED > 60; GLUCOSE 104 MG/DL (70-105); POTASSIUM 4.5 MMOL/L (3.6-5.0); SODIUM 138 MMOL/L (135-145)
[2017-08-26 12:30] VITALS: BP 108/70
--- NOTE | 2017-08-26 12:53 | Diagnostic Imaging Report ---
PROCEDURE: CT head without contrast. TECHNIQUE: Multiple contiguous axial images were obtained through the brain without the use of intravenous contrast. INDICATION: Increased confusion. History of traumatic brain injury. FINDINGS: There is minimal hyperdensity along the anterior medial aspect of the right frontal lobe. This could relate to punctate hemorrhage or parenchymal contusion. There is extensive periventricular and deep white hypodensities, compatible with chronic microvascular ischemic changes. No hydrocephalus. No extra-axial fluid collection is seen. The calvarium appears grossly unremarkable. The visualized portions of the paranasal sinuses demonstrate opacification in the right mastoid air cells with the other sinuses appearing clear. IMPRESSION: 1. Curvilinear area of hyperdensity along the inferior medial aspect of the right frontal lobe raises the question of microhemorrhage or small contusion in the parenchyma at this region. This could correlate with the provided history of traumatic brain injury. 2. Chronic parenchymal ischemic changes. 3. Opacification of the right mastoid air cells could correlate with mastoiditis. Dictated by: Dictated on workstation # [id number]
--- NOTE | 2017-08-26 14:19 | Occupational Ther Daily Note ---
OT Current Status-Daily Note Subjective Pt asleep in recliner at beginning of tx. No mention of pain. Agreeable to therapy. Appearance sleepy, mostly cooperative. Mental Status/Objective Functional [place] Measure 0=Not Assessed/NA 4=Minimal Assistance 1=Total Assistance 5=Supervision or Setup 2=Maximal Assistance 6=Modified [place] 3=Moderate Assistance 7=Complete [place] ADL-Treatment Functional [place] Measure 0=Not Assessed/NA 4=Minimal Assistance 1=Total Assistance 5=Supervision or Setup 2=Maximal Assistance 6=Modified [place] 3=Moderate Assistance 7=Complete IndependenceIRFPAI Quality Coding Scale 6 Independent with activity with or without an assistive device 5 Patient requires set up or clean up by helper. Patient completes activity by themselves 4 Supervision or touching assist (CGA). [place] provide cues , steadying assist 3 The helper provides less than half the effort to complete the activity 2 The helper provides more than half the effort to complete the activity 1 Dependent. The helper does all the effort to complete an activity 7 Patient refused to complete or attempt activity 9 The patient did not perform the activity before the current illness or injury 88 Not attempted due to Medical conditions or safety concerns Other Treatment Pt sat in recliner and retrieved and placed graduated clothes pins. Pt very sleepy and had a hard time staying awake for activity which required consistent verbal and tactile cues to task as well as more time than normal. Pt able to retrieve pins by color named 3/5 attempts and 2/5 attempts and able to place 11/ 17 in frame. Pt chose to be in bed to rest at end of tx so transferred to bed with FWW and CGA due in part to pt's sleepiness. Needed assistance to get both legs into bed. Pt in bed, all four rails up, bed alarm on, all needs met at end of tx. Education OT Patient Education: Purpose of tx/functional activities, Transfer techniques Teaching Recipient: Patient Teaching Methods: Demonstration, Discussion Response to Teaching: Verbalize Understanding, Reinforcement Needed OT Short Term Goals Short Term Goals Time Frame: Sep 05, 2017 Eating(FIM): 5 Grooming(FIM): 5 Toileting(FIM): 3 Toilet/Commode Transfer(FIM): 4 Additional Short Term Goals: 1-Demonstrate ADL Tasks, 2-Verbalize Understanding , 3-ImproveStrength/Harmony 1=Demonstrate adherence to instructed precautions during ADL tasks. 2=Patient will verbalize/demonstrate understanding of assistive devices/ modifications for ADL. 3=Patient will improve strength/tolerance for activity to enable patient to perform ADL's. OT Alf Goals Lead Cashier Goals Time Frame: Sep 26, 2017 Eating (FIM): 6 Eating (QC): 6 Groomin Oral Hygiene (QC): 6 Bathing(FIM): 5 Shower/Bathe Self (QC): 5 Upper Body Dressing(FIM): 6 Upper Body Dressing (QC): 6 Lower Body Dressing(FIM): 6 Lower Body Dressing (QC): 6 On/Off Footwear (QC): 6 Toileting(FIM): 6 Toileting Hygiene (QC): 6 Toilet/Commode Transfer(FIM): 6 Toilet/Commode Transfer (QC): 6 Shower Transfer(FIM): 5 Comprehension(FIM): 4 Expression (FIM): 5 Social Interaction(FIM): 5 Problem Solving(FIM): 4 Memory(FIM): 4 Additional Goals: 1-Demonstrate ADL Tasks, 2-Verbalize Understanding, 3- ImproveStrength/Harmony 1=Demonstrate adherence to instructed precautions during ADL tasks. 2=Patient will verbalize/demonstrate understanding of assistive devices/ modifications for ADL. 3=Patient will improve strength/tolerance for activity to enable patient to perform ADL's. OT Education/Plan Problem List/Assessment Pt would benefit from skilled OT to increase his independence in basic self care to allow him to safely return to his home or other appropriate placement and to decrease caregiver burden. Discharge Recommendations Plan/Recommendations: Continue POC Treatment Plan/Plan of Care Patient would benefit from OT for education, treatment and training to promote independence in ADL's, mobility, safety and/or upper extremity function for ADL' s. Plan of Care: ADL Retraining, Functional Mobility, Group Exercise/Act as Ind ( educ, exercise, memory, socialization, funct activity, problem solving) Treatment Duration: Sep 26, 2017 Frequency: At least 5 of 7 days/Wk (IRF) Estimated Hrs Per Day: 1.5 hours per day (1.25 to 1.5 hours) Agreement: Yes Rehab Potential: Fair Time/GCodes Start Time: 13:30 Stop Time: 14:05 Total Time Billed (hr/min): 35 Billed Treatment Time visit, FA 35 minutes SCHUYLER ALVARADO OT Aug 26, 2017 14:19
--- NOTE | 2017-08-26 14:25 | Occupational Ther Daily Note ---
OT Current Status-Daily Note Subjective Pt in recliner at beginning of tx. Agreeable to therapy. No mention of pain. Appearance Alert, cooperative. Mental Status/Objective Functional [place] Measure 0=Not Assessed/NA 4=Minimal Assistance 1=Total Assistance 5=Supervision or Setup 2=Maximal Assistance 6=Modified [place] 3=Moderate Assistance 7=Complete [place] ADL-Treatment Pt did not initiate ADLs or even steps of ADLs. Required skilled cues for sequencing each step of ADLs. Pt walked to bathroom with FWW and CGA for safety. After showering, pt walked to recliner with FWW and CGA. Functional [place] Measure 0=Not Assessed/NA 4=Minimal Assistance 1=Total Assistance 5=Supervision or Setup 2=Maximal Assistance 6=Modified [place] 3=Moderate Assistance 7=Complete IndependenceIRFPAI Quality Coding Scale 6 Independent with activity with or without an assistive device 5 Patient requires set up or clean up by helper. Patient completes activity by themselves 4 Supervision or touching assist (CGA). [place] provide cues , steadying assist 3 The helper provides less than half the effort to complete the activity 2 The helper provides more than half the effort to complete the activity 1 Dependent. The helper does all the effort to complete an activity 7 Patient refused to complete or attempt activity 9 The patient did not perform the activity before the current illness or injury 88 Not attempted due to Medical conditions or safety concerns Upper Body (FIM): 4 (Pt able to don overhead shirt while seated with supervision for safety. ) Lower Body Dressing (FIM): 3 (Pt needed assist to thread both feet for underwear and shorts but was able to stand with FWW and CGA and manage clothing. Needed to complete each step before moving on to next one (such as pulling up underwear before putting on shorts)) Shower Transfer(FIM): 4 (Pt able to transfer into shower with FWW and CGA and verbal cues for placement of FWW. Shower bench, FWW, grab bars.) While in shower, pt stated water was too hot then got chilled and wasn't able to finish washing all parts. Pt tried to rinse off before washing and to shampoo hair before it was wet. Used shower bench, grab bars, hand held shower, FWW. Pt dried and dressed and was no longer chilled. Pt in recliner with chair alarm set and all needs met at end of tx. Education OT Patient Education: Modified ADL techniques, Purpose of tx/functional activities, Safety issues, Transfer techniques Teaching Recipient: Patient Teaching Methods: Demonstration, Discussion Response to Teaching: Verbalize Understanding, Reinforcement Needed OT Short Term Goals Short Term Goals Time Frame: Sep 05, 2017 Eating(FIM): 5 Grooming(FIM): 5 Toileting(FIM): 3 Toilet/Commode Transfer(FIM): 4 Additional Short Term Goals: 1-Demonstrate ADL Tasks, 2-Verbalize Understanding , 3-ImproveStrength/Harmony 1=Demonstrate adherence to instructed precautions during ADL tasks. 2=Patient will verbalize/demonstrate understanding of assistive devices/ modifications for ADL. 3=Patient will improve strength/tolerance for activity to enable patient to perform ADL's. OT Centrifugal Chiller Technician Goals [facility]sp Goals Time Frame: Sep 26, 2017 Eating (FIM): 6 Eating (QC): 6 Groomin Oral Hygiene (QC): 6 Bathing(FIM): 5 Shower/Bathe Self (QC): 5 Upper Body Dressing(FIM): 6 Upper Body Dressing (QC): 6 Lower Body Dressing(FIM): 6 Lower Body Dressing (QC): 6 On/Off Footwear (QC): 6 Toileting(FIM): 6 Toileting Hygiene (QC): 6 Toilet/Commode Transfer(FIM): 6 Toilet/Commode Transfer (QC): 6 Shower Transfer(FIM): 5 Comprehension(FIM): 4 Expression (FIM): 5 Social Interaction(FIM): 5 Problem Solving(FIM): 4 Memory(FIM): 4 Additional Goals: 1-Demonstrate ADL Tasks, 2-Verbalize Understanding, 3- ImproveStrength/Harmony 1=Demonstrate adherence to instructed precautions during ADL tasks. 2=Patient will verbalize/demonstrate understanding of assistive devices/ modifications for ADL. 3=Patient will improve strength/tolerance for activity to enable patient to perform ADL's. OT Education/Plan Problem List/Assessment Pt would benefit from skilled OT to increase his independence in basic self care to allow him to safely return to his home or other appropriate placement and to decrease caregiver burden. Discharge Recommendations Plan/Recommendations: Continue POC Treatment Plan/Plan of Care Patient would benefit from OT for education, treatment and training to promote independence in ADL's, mobility, safety and/or upper extremity function for ADL' s. Plan of Care: ADL Retraining, Functional Mobility, Group Exercise/Act as Ind ( educ, exercise, memory, socialization, funct activity, problem solving) Treatment Duration: Sep 26, 2017 Frequency: At least 5 of 7 days/Wk (IRF) Estimated Hrs Per Day: 1.5 hours per day (1.25 to 1.5 hours) Agreement: Yes Rehab Potential: Fair Time/GCodes Start Time: 10:47 Stop Time: 11:32 Total Time Billed (hr/min): 45 Billed Treatment Time visit, ADL 45 minutes SCHUYLER ALVARADO OT Aug 26, 2017 14:25
[2017-08-26 14:28] LABS: LYMPHOCYTES % (MANUAL) 32 %; NEUTROPHILS % (MANUAL) 56 %
[2017-08-26 14:30] LABS: EOSINOPHILS % (MANUAL) 5 %
--- NOTE | 2017-08-26 14:49 | Speech Therapy Daily Note ---
Speech Daily Progress Note Subjective Date Seen by Provider: Aug 26, 2017 Time Seen by Provider: 10:00 The patient was seated upright in recliner upon entrance. The patient greeted the clinician and was agreeable to participation in the cognitive treatment session. Objective Throughout informal interactions, the patient appeared to demonstrate increased confusion. Due to this, the clinician provided the patient with a standardized cognitive screening, The Flo Cognitive Assessment (MoCA). The patient displayed the below results: - Executive Function/Visuospatial: The patient was unable to complete trail- making, cube copying or clock drawing. - Naming: The patient was able to name three black and white photographs accurately. - Memory: The patient was able to state four of five single words immediately and zero of five single words following a five minute delay. - Attention: The patient was unable to repeat five single digits forward or three single digits in reverse. Additionally, the patient was unable to complete serial seven subtraction or identify a specific letter in a string of letters. - Language: The patient was able to repeat short phrases, however, could not name more than one "f" word within a one minute time frame. - Orientation: The patient was not oriented to date, month, year, day of week, location, or city. The patient displayed an overall score of +9/30 correlating to a moderate to severe cognitive deficit. Assessment Assessment Current Status: Poor Progress Treatment Plan Continue Plan of Care Communication Comprehension: 2 Expression: 2 Social Cognition Social Interaction: 2 Problem Solvin Memory: 1 Speech Short Term Goals Short Term Goals Short Term Goals 1. The patient will recall and demonstrate three functional memory strategies for use at home. 2. The patient will complete functional ADL tasks (clock reading, check writing , etc) with 80% accuracy and mild clinician cueing. 3. The patient will accurately sequence ADL activities with 80% accuracy, independently. 4. The patient will complete structured word-finding tasks with 80% accuracy and mild clinician cueing. Time Frame-STG: One Week Speech Director Of Advertising Sales Goals Director Of Advertising Sales Goals 1. The patient will display improved cognitive linguistic skills for increased function and safety with ADL's in the least restrictive setting. Time Frame: Two Weeks Comprehension: 4 Expression: 5 Social Interaction: 5 Problem Solvin Memory: 4 Speech-Plan Treatment Plan Speech Therapy Treatment Plan: Continue Plan of Care Continue skilled speech pathology to target functional problem solving and communication. Treatment Duration: Sep 05, 2017 Frequency: Modified Program (IRF) (Three to Five Times Per Week) Estimated Hrs Per Day: .5 hour per day Rehab Potential: Fair Safety Risks/Education Teaching Recipient: Patient Teaching Methods: Discussion Response to Teaching: Verbalize Understanding Education Topics Provided: Memory Strategies Time Speech Therapy Time In: 10:00 Speech Therapy Time Out: 10:30 Total Billed Time: 30 Billed Treatment Time DanieleMATTHIAS ELIZABETH ST Aug 26, 2017 14:49
--- NOTE | 2017-08-26 15:20 | Physical Therapy Daily Note ---
PT Daily Note-Current Subjective Patient is very lethargic and slow to respond. He just returned to room from [facility]. Pain Numeric Pain Scale: 0-No Pain Location: No Pain Reported Mental Status Patient Orientation: Confused Transfers Functional [place] Measure 0=Not Assessed/NA 4=Minimal Assistance 1=Total Assistance 5=Supervision or Setup 2=Maximal Assistance 6=Modified [place] 3=Moderate Assistance 7=Complete IndependenceIRFPAI Quality Coding Scale 6 Independent with activity with or without an assistive device 5 Patient requires set up or clean up by helper. Patient completes activity by themselves 4 Supervision or touching assist (CGA). [place] provide cues , steadying assist 3 The helper provides less than half the effort to complete the activity 2 The helper provides more than half the effort to complete the activity 1 Dependent. The helper does all the effort to complete an activity 7 Patient refused to complete or attempt activity 9 The patient did not perform the activity before the current illness or injury 88 Not attempted due to Medical conditions or safety concerns Transfers (B, C, W/C) (FIM): 4 Scootin Rollin Roll Left to Right (QC): 4 Supine to/from Sit: 4 Sit to/from Stand: 4 Sit to Lying (QC): 4 Sit to Stand (QC): 4 Chair/Gqj-lr-Pdraj Xfer(QC): 4 Weight Bearing Right Lower Extremity: Right Full Weight Bearing Left Lower Extremity: Left Full Weight Bearing Gait Training Does the Patient Walk?: Yes Gait (FIM): 2 Distance (FIM): 8=227-26 ft Distance: 100' x 4 Walk 10 feet (QC): 4 Walk 50 ft with 2 Turns(QC): 4 Gait Level of Assist: 4 Gait Assistive Device: FWW short, shuffle gait sequence with no foot clearance Assessment Patient displays increase in fatigue and lethargy. Patient returned to bed and has needs met. Increase activity as tolerated by patient. PT Public Relations Intern Goals Group Home Goals PT Group Home Goals Time Frame: Sep 26, 2017 Transfers (B,C,W/C) (FIM): 6 Sit to Lying (QC): 6 Lying-Sitting on Side/Bed(QC): 6 Sit to Stand (QC): 6 Rollin Roll Left to Right (QC): 6 Chair/Prb-kt-Cijkp Xfer(QC): 6 Car Transfer (QC): 6 Does the Patient Walk: Yes Gait (FIM): 6 Gait distance (FIM): 3=150 ft Distance: >300' Walk 10 feet (QC): 6 Walk 10ft-Uneven Surface(QC): 6 Walk 50ft with 2 Turns (QC): 6 Walk 150 ft (QC): 6 Gait Level of Assist: 6 Gait Assistive Device: FWW Stairs (FIM): 5 # of Steps: 12 1 Step (curb) (QC): 5 4 Steps (QC): 5 12 Steps (QC): 5 Stairs Level Of Assist: 5 Picking up an Object (QC): 5 PT Plan Treatment/Plan Treatment Plan: Continue Plan of Care Treatment Plan: Bed Mobility, Education, Functional Activity Harmony, Functional Strength, Group Therapy, Gait, Safety, Therapeutic Exercise, Transfers Treatment Duration: Sep 26, 2017 Frequency: At least 5 of 7 days/Wk (IRF) Estimated Hrs Per Day: 1.5 hours per day Patient and/or Family Agrees t: Yes Time/GCodes Time In: 1445 Time Out: 1515 Total Billed Treatment Time: 30 Total Billed Treatment 1 visit GT x 2 30 min ALYSA ARELLANO PT Aug 26, 2017 15:20
--- NOTE | 2017-08-26 15:54 | PM & R (SOAP) Progress Note ---
Subjective Time Seen by Provider: 08:05 Subjective/Events-last exam Patient was seen in his room this AM Appears a bit more confused Labs ordered some still pending including a U/A.CXR report pending CT Head noted will try to obtain copy of image from [facility] where he was treated acutely. Review of Systems Neurological: Other (confusion) Objective Exam Last Set of Vital Signs Vital Signs Date Time Temp Pulse Resp B/P (MAP) Pulse Ox O2 Delivery O2 Flow Rate FiO2 08/26/17 15:36 92 Room Air 08/26/17 12:30 97 18 108/70 08/26/17 08:50 98.0 Capillary Refill : Less Than 3 Seconds I&O Intake and Output 08/27/17 00:00 Intake Total 150 ml Output Total 600 ml Balance -450 ml Intake Oral 150 ml Output Urine Total 600 ml General: Alert, Cooperative, No Acute Distress HEENT: Atraumatic, PERRLA, EOMI, Mucous Memb Moist/[place] Neck: Supple, No JVD Lungs: Clear to Auscultation Heart: Regular Rate Abdomen: Normal Bowel Sounds, Soft, No Tenderness, Other Extremities: No Edema (Strength 4-/5) Results Lab Laboratory Tests 08/23/17 20:23: Glucometer 129H 08/24/17 06:18: Glucometer 92 08/24/17 11:05: Glucometer 111H 08/24/17 16:15: Glucometer 57*L 08/24/17 17:14: Glucometer 95 08/24/17 20:24: Glucometer 86 08/25/17 04:44: Glucometer 91 08/25/17 10:50: Glucometer 136H 08/25/17 16:16: Glucometer 101 08/25/17 20:03: Glucometer 144H 08/26/17 05:04: Glucometer 91 08/26/17 11:02: Glucometer 124H 08/26/17 11:38: White Blood Count 6.1, Red Blood Count 3.59L, Hemoglobin 10.4L, Hematocrit 32L, Mean Corpuscular Volume 90, Mean Corpuscular Hemoglobin 29, Mean Corpuscular Hemoglobin Concent 32, Red Cell Distribution Width 14.5, Platelet Count 290, Mean Platelet Volume 9.0, Neutrophils (%) (Auto) 52, Lymphocytes (%) (Auto) 29, Monocytes (%) (Auto) 11, Eosinophils (%) (Auto) 7, Basophils (%) (Auto) 1, Neutrophils # (Auto) 3.2, Lymphocytes # (Auto) 1.8, Monocytes # (Auto) 0.7, Eosinophils # (Auto) 0.4H, Basophils # (Auto) 0.0, Neutrophils % (Manual) 56, Lymphocytes % (Manual) 32, Monocytes % (Manual) 7, Eosinophils % (Manual) 5, Sodium Level 138, Potassium Level 4.5, Chloride Level 105, Carbon Dioxide Level 22, Anion Gap 11, Blood Urea Nitrogen 15, Creatinine 0.73, Estimat Glomerular Filtration Rate > 60, BUN/Creatinine Ratio 21, Glucose Level 104, Calcium Level 10.0 Assessment/Plan Assessment TBI with encephalopathy -a bit more confused today s/p decannulation S/P PEG on po feeds Frx left elbow s/p repair MRSA in sputum with contact precautions Plan Continue Pt/OT Team Conference -50-73 F/U on pending labs and CXR Obtain records re Imaging studies done at OSH as per above Discussed with WINDY BUENO MD Aug 26, 2017 15:54
--- NOTE | 2017-08-26 15:56 | Diagnostic Imaging Report ---
INDICATION: Increased confusion. Cough. History of traumatic brain injury. COMPARISON: None. FINDINGS: Frontal and lateral radiographic views of the chest were obtained and show normal cardiac silhouette and pulmonary vasculature. The lungs show low inspiratory volumes but are otherwise clear. There is no large effusion, pneumothorax, or focal consolidation. The bony structures show nonacute appearing posterior right seventh and eighth rib fractures. There is calcified aortic atherosclerosis. IMPRESSION: No acute cardiopulmonary process. Dictated by: Dictated on workstation # [id number]
[2017-08-26 15:58] LABS: ALBUMIN 3.8 GM/DL (3.2-4.5); BILIRUBIN,DIRECT 0.3 MG/DL (0.0-0.3); BILIRUBIN,INDIRECT 0.5 MG/DL; BILIRUBIN,TOTAL 0.8 MG/DL (0.1-1.0); TOTAL PROTEIN 7.7 GM/DL (6.4-8.2)
[2017-08-26 18:14] VITALS: BP 104/69
[2017-08-26 18:38] LABS: BILIRUBIN,URINE NEGATIVE (NEGATIVE); KETONES,URINE NEGATIVE (NEGATIVE); LEUKOCYTE ESTERASE ,URINE NEGATIVE (NEGATIVE); NITRITE,URINE NEGATIVE (NEGATIVE); PH,URINE 5 (5-9); PROTEIN,URINE 1+ (NEGATIVE); UROBILINOGEN,URINE NORMAL (NORMAL)
[2017-08-26 18:49] LABS: HYALINE CASTS, URINE 25-50 /LPF; WBC,URINE 0-2 /HPF
[2017-08-27 05:45] VITALS: BP 111/72
[2017-08-27] MEDS: NYSTATIN ORAL SUSP 5 ML UDC PO SCH ×4 (05:59→23:29)
[2017-08-27] MEDS: inSUlin ASPART (NovoLOG) 1 UNIT/0.01 ML (CHARGE PER UNIT) SC SCH ×4 (05:59→21:29)
[2017-08-27] MEDS: THIAMINE 100 MG (VITAMIN B-1) TAB PO SCH (06:00)
[2017-08-27] MEDS: CEFEPIME INJECTION 2,000 MG in NS (IVPB) 50 ML IV SCH ×3 (06:01→22:02)
[2017-08-27] MEDS: RT-ALBUTEROL/IPRATROPIUM 3 ML (DUONEB) VIAL INH SCH ×4 (07:46→18:55)
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
--- NOTE | 2017-08-27 08:48 | PM & R (SOAP) Progress Note ---
Subjective Time Seen by Provider: 08:20 Subjective/Events-last exam Patient was seen in his room this AM Case discussed with RN and DR cyr Patient more alert with clonopin being held Labs noted U/A negative Patient with urinary retention Winters inserted last evening.Patient min assist for transfers Review of Systems Genitourinary: Retention Objective Exam Last Set of Vital Signs Vital Signs Date Time Temp Pulse Resp B/P (MAP) Pulse Ox O2 Delivery O2 Flow Rate FiO2 08/27/17 07:47 97 Room Air 08/27/17 05:45 97.4 90 14 111/72 Capillary Refill : Less Than 3 Seconds I&O Intake and Output 08/28/17 00:00 Intake Total 500 ml Output Total 800 ml Balance -300 ml Intake Oral 200 ml IV Total 100 ml Tube Feeding 200 ml Output Urine Total 800 ml General: Alert, Cooperative, No Acute Distress HEENT: Atraumatic, PERRLA, EOMI, Mucous Memb Moist/[place] Neck: Supple, No JVD Lungs: Clear to Auscultation Heart: Regular Rate Abdomen: Normal Bowel Sounds, Soft, No Tenderness, Other Extremities: No Edema (Strength 4-/5) Other physical findings Winters catheter to DD Results Lab Laboratory Tests 08/24/17 11:05: Glucometer 111H 08/24/17 16:15: Glucometer 57*L 08/24/17 17:14: Glucometer 95 08/24/17 20:24: Glucometer 86 08/25/17 04:44: Glucometer 91 08/25/17 10:50: Glucometer 136H 08/25/17 16:16: Glucometer 101 08/25/17 20:03: Glucometer 144H 08/26/17 05:04: Glucometer 91 08/26/17 11:02: Glucometer 124H 08/26/17 11:38: White Blood Count 6.1, Red Blood Count 3.59L, Hemoglobin 10.4L, Hematocrit 32L, Mean Corpuscular Volume 90, Mean Corpuscular Hemoglobin 29, Mean Corpuscular Hemoglobin Concent 32, Red Cell Distribution Width 14.5, Platelet Count 290, Mean Platelet Volume 9.0, Neutrophils (%) (Auto) 52, Lymphocytes (%) (Auto) 29, Monocytes (%) (Auto) 11, Eosinophils (%) (Auto) 7, Basophils (%) (Auto) 1, Neutrophils # (Auto) 3.2, Lymphocytes # (Auto) 1.8, Monocytes # (Auto) 0.7, Eosinophils # (Auto) 0.4H, Basophils # (Auto) 0.0, Neutrophils % (Manual) 56, Lymphocytes % (Manual) 32, Monocytes % (Manual) 7, Eosinophils % (Manual) 5, Sodium Level 138, Potassium Level 4.5, Chloride Level 105, Carbon Dioxide Level 22, Anion Gap 11, Blood Urea Nitrogen 15, Creatinine 0.73, Estimat Glomerular Filtration Rate > 60, BUN/Creatinine Ratio 21, Glucose Level 104, Calcium Level 10.0, Total Bilirubin 0.8, Direct Bilirubin 0.3, Indirect Bilirubin 0.5, Aspartate Amino Transf (AST/SGOT) 28, Alanine Aminotransferase (ALT/SGPT) 33, Alkaline Phosphatase 130, Total Protein 7.7, Albumin 3.8 08/26/17 16:14: Glucometer 94 08/26/17 17:48: Urine Color YELLOW, Urine Clarity CLEAR, Urine pH 5, Urine Specific [place] 1.025H, Urine Protein 1+H, Urine Glucose (UA) NEGATIVE, Urine Ketones NEGATIVE, Urine Nitrite NEGATIVE, Urine Bilirubin NEGATIVE, Urine Urobilinogen NORMAL, Urine Leukocyte Esterase NEGATIVE, Urine RBC (Auto) NEGATIVE, Urine RBC NONE, Urine WBC 0-2, Urine Crystals NONE, Urine Bacteria NONE, Urine Casts PRESENT, Urine Hyaline Casts 25-50H, Urine Mucus NEGATIVE, Urine Culture Indicated NO 08/26/17 20:23: Glucometer 105 08/27/17 05:36: Glucometer 91 08/27/17 07:18: Ammonia 15 Assessment/Plan Assessment TBI with encephalopathy -a bit more confused today s/p decannulation S/P PEG on po feeds Frx left elbow s/p repair MRSA in sputum with contact precautions Urinary retention managed with Indwelling Winters catheter for now Plan Continue Pt/OT Team Conference later today-See report for full functional update and POC and ELOS Obtain records re Imaging studies done at OSH as per above Discussed with RN and WINDY Fernández MD Aug 27, 2017 08:48
--- NOTE | 2017-08-27 08:55 | Physical Therapy Daily Note ---
PT Daily Note-Current Subjective Pt. agrees to Rx. States he has pain but does not rate. Appearance yellow, jaundiced eye coloring Mental Status Patient Orientation: Confused Attachments: Winters Catheter states wrong year and cannot say name of facility Transfers Functional [place] Measure 0=Not Assessed/NA 4=Minimal Assistance 1=Total Assistance 5=Supervision or Setup 2=Maximal Assistance 6=Modified [place] 3=Moderate Assistance 7=Complete IndependenceIRFPAI Quality Coding Scale 6 Independent with activity with or without an assistive device 5 Patient requires set up or clean up by helper. Patient completes activity by themselves 4 Supervision or touching assist (CGA). [place] provide cues , steadying assist 3 The helper provides less than half the effort to complete the activity 2 The helper provides more than half the effort to complete the activity 1 Dependent. The helper does all the effort to complete an activity 7 Patient refused to complete or attempt activity 9 The patient did not perform the activity before the current illness or injury 88 Not attempted due to Medical conditions or safety concerns Transfers (B, C, W/C) (FIM): 5 Scootin Rollin Roll Left to Right (QC): 5 Supine to/from Sit: 5 Sit to/from Stand: 5 car TRF at 4 Weight Bearing Right Lower Extremity: Right Full Weight Bearing Left Lower Extremity: Left Full Weight Bearing Gait Training Does the Patient Walk?: Yes Gait (FIM): 5 Distance (FIM): 3=150 ft (250,200) Gait Level of Assist: 5 Gait Persons Needed: 1 Gait Assistive Device: FWW very small steps, unequal step length Stair Training Stair Training: Handrails/: 2 handrails Stairs (FIM): 2 #of Steps: 4 Stairs: Pattern: Step to Level of Assist: 4 needs instruction for every step and sequence Balance Special Test Comments unsafe to attempt Exercises Supine Ex: Ankle pumps, Rolling, Lower trunk rotation, Short Arc Quads, Hip abd /add Supine Reps: 12 Seated Therapy Exercises: Ankle pumps, Sit to stand, Long arc quads, Hip flexion, Hip abd/add Seated Reps: 10 Assessment Current Status: Good Progress needs FT supervision and instruction for all tasks as well as min assist for some for safety, confusion PT Percussion Teacher Goals Residential Goals PT Residential Goals Time Frame: Sep 26, 2017 Transfers (B,C,W/C) (FIM): 6 Sit to Lying (QC): 6 Lying-Sitting on Side/Bed(QC): 6 Sit to Stand (QC): 6 Rollin Roll Left to Right (QC): 6 Chair/Cyd-yc-Ijsbs Xfer(QC): 6 Car Transfer (QC): 6 Does the Patient Walk: Yes Gait (FIM): 6 Gait distance (FIM): 3=150 ft Distance: >300' Walk 10 feet (QC): 6 Walk 10ft-Uneven Surface(QC): 6 Walk 50ft with 2 Turns (QC): 6 Walk 150 ft (QC): 6 Gait Level of Assist: 6 Gait Assistive Device: FWW Stairs (FIM): 5 # of Steps: 12 1 Step (curb) (QC): 5 4 Steps (QC): 5 12 Steps (QC): 5 Stairs Level Of Assist: 5 Picking up an Object (QC): 5 PT Plan Treatment/Plan Treatment Plan: Continue Plan of Care Treatment Plan: Bed Mobility, Education, Functional Activity Harmony, Functional Strength, Group Therapy, Gait, Safety, Therapeutic Exercise, Transfers Treatment Duration: Sep 26, 2017 Frequency: At least 5 of 7 days/Wk (IRF) Estimated Hrs Per Day: 1.5 hours per day Patient and/or Family Agrees t: Yes Safety Risks/Education Patient Education: Gait Training, Transfer Techniques, Steps, Correct Positioning, Disease Process, Safety Issues Teaching Recipient: Patient Teaching Methods: Demonstration, Discussion Response to Teaching: Verbalize Understanding, Return Demonstration, Reinforcement Needed Time/GCodes Time In: 800 Time Out: 900 Total Billed Treatment Time: 60 Total Billed Treatment 1,GT25m,FA15m,EX20m G Codes Necessary: HANS Gerard MACHINE CEMENTER AND FOLDER Aug 27, 2017 08:54
[2017-08-27] MEDS: CHLORHEXIDINE 0.12% SOLN 15 ML (PERIDEX) UDC PO SCH ×2 (09:00→20:15)
[2017-08-27] MEDS: inSUlin DETERMIR 1 UNIT/0.01 ML (LEVEMIR) CHARGE PER UNIT SQ SCH (09:00)
[2017-08-27] MEDS: ALFUZOSIN HCL 10 MG TAB (UROXATRAL) PO SCH (09:33)
[2017-08-27] MEDS: FINASTERIDE (PROSCAR) 5 MG TAB PO SCH (09:33)
[2017-08-27] MEDS: DILTIAZEM 30 MG (CARDIZEM) TAB PO SCH ×3 (09:34→20:15)
[2017-08-27] MEDS: cloNIDine 0.1 MG (CATAPRES) TAB PO SCH ×2 (09:34→20:15)
[2017-08-27] MEDS: CARVEDILOL 6.25 MG (COREG) TAB PO SCH ×2 (09:34→20:15)
[2017-08-27] MEDS: DOCUSATE SODIUM 100 MG (COLACE) CAP PO SCH ×2 (09:34→20:15)
[2017-08-27] MEDS: ACETAMINOPHEN 500 MG TAB (TYLENOL) PO PRN (10:21)
--- NOTE | 2017-08-27 11:09 | Occupational Ther Daily Note ---
OT Current Status-Daily Note Subjective Pt in recliner at beginning of tx. Agreeable to therapy but didn't want to leave room. No mention of pain. Appearance Alert, cooperative. Mental Status/Objective Functional [place] Measure 0=Not Assessed/NA 4=Minimal Assistance 1=Total Assistance 5=Supervision or Setup 2=Maximal Assistance 6=Modified [place] 3=Moderate Assistance 7=Complete [place] ADL-Treatment Pt walked into bathroom with FWW and SBA to wash face. He turned on the water, then went back to retrieve glasses from bedside table, returned to sink and washed glasses, then shut the water off. When asked the purpose of being in the bathroom, he answered "wash my face" and knew he hadn't done that. He then turned the water back on and wet the wash cloth and washed his face. Functional [place] Measure 0=Not Assessed/NA 4=Minimal Assistance 1=Total Assistance 5=Supervision or Setup 2=Maximal Assistance 6=Modified [place] 3=Moderate Assistance 7=Complete IndependenceIRFPAI Quality Coding Scale 6 Independent with activity with or without an assistive device 5 Patient requires set up or clean up by helper. Patient completes activity by themselves 4 Supervision or touching assist (CGA). [place] provide cues , steadying assist 3 The helper provides less than half the effort to complete the activity 2 The helper provides more than half the effort to complete the activity 1 Dependent. The helper does all the effort to complete an activity 7 Patient refused to complete or attempt activity 9 The patient did not perform the activity before the current illness or injury 88 Not attempted due to Medical conditions or safety concerns Other Treatment Pt attempted ROM activities but muscles in LUE were too tight to move past about 90 degrees sh flex. Skilled facilitation was used to increase range shoulder and elbow for ADLs. Pt able to do shoulder shrugs and shoulder depressions but required skilled facilitation applied to complete the stretch of muscles. Pt had difficulty following instructions. At end of tx, pt demonstrated increased L shoulder movement. Pt returned to bed at end of tx, 4 rails up, bed alarm on, all needs met. Education OT Patient Education: Correct positioning, Purpose of tx/functional activities , Safety issues, Transfer techniques Teaching Recipient: Patient Teaching Methods: Demonstration, Discussion Response to Teaching: Verbalize Understanding, Return Demonstration, Reinforcement Needed OT Short Term Goals Short Term Goals Time Frame: Sep 05, 2017 Eating(FIM): 5 Grooming(FIM): 5 Toileting(FIM): 3 Toilet/Commode Transfer(FIM): 4 Additional Short Term Goals: 1-Demonstrate ADL Tasks, 2-Verbalize Understanding , 3-ImproveStrength/Harmony 1=Demonstrate adherence to instructed precautions during ADL tasks. 2=Patient will verbalize/demonstrate understanding of assistive devices/ modifications for ADL. 3=Patient will improve strength/tolerance for activity to enable patient to perform ADL's. OT Prison Goals Prison Goals Time Frame: Sep 26, 2017 Eating (FIM): 6 Eating (QC): 6 Groomin Oral Hygiene (QC): 6 Bathing(FIM): 5 Shower/Bathe Self (QC): 5 Upper Body Dressing(FIM): 6 Upper Body Dressing (QC): 6 Lower Body Dressing(FIM): 6 Lower Body Dressing (QC): 6 On/Off Footwear (QC): 6 Toileting(FIM): 6 Toileting Hygiene (QC): 6 Toilet/Commode Transfer(FIM): 6 Toilet/Commode Transfer (QC): 6 Shower Transfer(FIM): 5 Comprehension(FIM): 4 Expression (FIM): 5 Social Interaction(FIM): 5 Problem Solving(FIM): 4 Memory(FIM): 4 Additional Goals: 1-Demonstrate ADL Tasks, 2-Verbalize Understanding, 3- ImproveStrength/Harmony 1=Demonstrate adherence to instructed precautions during ADL tasks. 2=Patient will verbalize/demonstrate understanding of assistive devices/ modifications for ADL. 3=Patient will improve strength/tolerance for activity to enable patient to perform ADL's. OT Education/Plan Problem List/Assessment Pt would benefit from skilled OT to increase his independence in basic self care to allow him to safely return to his home or other appropriate placement and to decrease caregiver burden. Discharge Recommendations Plan/Recommendations: Continue POC Treatment Plan/Plan of Care Patient would benefit from OT for education, treatment and training to promote independence in ADL's, mobility, safety and/or upper extremity function for ADL' s. Plan of Care: ADL Retraining, Functional Mobility, Group Exercise/Act as Ind ( educ, exercise, memory, socialization, funct activity, problem solving) Treatment Duration: Sep 26, 2017 Frequency: At least 5 of 7 days/Wk (IRF) Estimated Hrs Per Day: 1.5 hours per day (1.25 to 1.5 hours) Agreement: Yes Rehab Potential: Fair Time/GCodes Start Time: 09:35 Stop Time: 10:37 Total Time Billed (hr/min): 62 Billed Treatment Time visit, ADL 10 minutes, neuromotor 52 SCHUYLER ALVARADO OT Aug 27, 2017 11:09
[2017-08-27] MEDS: ARTIFICAL TEARS 0.4 ML UNIT DOSE (REFRESH PLUS) OU SCH ×4 (11:16→20:15)
--- NOTE | 2017-08-27 11:56 | Speech Therapy Daily Note ---
Speech Daily Progress Note Subjective Date Seen by Provider: Aug 27, 2017 Time Seen by Provider: 09:00 The patient was seated in the recliner upon entrance. The patient greeted the clinician upon entrance and was agreeable to participation in the cognitive treatment session. Objective Functional Safety Problem Solving: The patient was provided specific photographs depicting specific safety concerns in a common home environment. The patient was asked to identify the safety concern and state an appropriate solution. The patient displayed mild to moderate difficulty with this task, requiring frequent clinician prompting to identify the safety risk. Orientation: The patient required maximum clinician prompting for identification of simple orientation information. Orientation information included month, day of week, date, year, and city. Once the accurate information was provided, the patient was unable to recall the information at the close of the session. Assessment Assessment Current Status: Poor Progress Treatment Plan Continue Plan of Care Communication Comprehension: 2 Expression: 2 Social Cognition Social Interaction: 2 Problem Solvin Memory: 1 Speech Short Term Goals Short Term Goals Short Term Goals 1. The patient will recall and demonstrate three functional memory strategies for use at home. 2. The patient will complete functional ADL tasks (clock reading, check writing , etc) with 80% accuracy and mild clinician cueing. 3. The patient will accurately sequence ADL activities with 80% accuracy, independently. 4. The patient will complete structured word-finding tasks with 80% accuracy and mild clinician cueing. Time Frame-STG: One Week Speech Die Developer Goals Shelter Goals 1. The patient will display improved cognitive linguistic skills for increased function and safety with ADL's in the least restrictive setting. Time Frame: Two Weeks Comprehension: 4 Expression: 5 Social Interaction: 5 Problem Solvin Memory: 4 Speech-Plan Treatment Plan Speech Therapy Treatment Plan: Continue Plan of Care Continue skilled speech pathology to target functional safety problem solving. Treatment Duration: Sep 05, 2017 Frequency: Modified Program (IRF) (Three to Five Times Per Week) Estimated Hrs Per Day: .5 hour per day Rehab Potential: Fair Safety Risks/Education Teaching Recipient: Patient Teaching Methods: Discussion Response to Teaching: Reinforcement Needed Education Topics Provided: Functional Safety Problem Solving Time Speech Therapy Time In: 09:00 Speech Therapy Time Out: 09:30 Total Billed Time: 30 Billed Treatment Time MATTHIAS Sanabria [facility] Aug 27, 2017 11:56
--- NOTE | 2017-08-27 13:21 | Physical Therapy Daily Note ---
PT Daily Note-Current Subjective Pt. up in chair. Agrees to Rx with encouragement Pain Numeric Pain Scale: 0-No Pain Transfers Functional [place] Measure 0=Not Assessed/NA 4=Minimal Assistance 1=Total Assistance 5=Supervision or Setup 2=Maximal Assistance 6=Modified [place] 3=Moderate Assistance 7=Complete IndependenceIRFPAI Quality Coding Scale 6 Independent with activity with or without an assistive device 5 Patient requires set up or clean up by helper. Patient completes activity by themselves 4 Supervision or touching assist (CGA). [place] provide cues , steadying assist 3 The helper provides less than half the effort to complete the activity 2 The helper provides more than half the effort to complete the activity 1 Dependent. The helper does all the effort to complete an activity 7 Patient refused to complete or attempt activity 9 The patient did not perform the activity before the current illness or injury 88 Not attempted due to Medical conditions or safety concerns instruction for safe sit to stands and positioning in chair for back comfort Weight Bearing Right Lower Extremity: Right Full Weight Bearing Left Lower Extremity: Left Full Weight Bearing Gait Training Gait Assistive Device: FWW 175ft x 2 with skilled verbal instruction for bigger step length and velocity as well as alignment Stair Training up down 4 steps with CGA and cues for sequence. Assessment continues dependent for all safety and mobility PT Correction Goals Correction Goals PT Correction Goals Time Frame: Sep 26, 2017 Transfers (B,C,W/C) (FIM): 6 Sit to Lying (QC): 6 Lying-Sitting on Side/Bed(QC): 6 Sit to Stand (QC): 6 Rollin Roll Left to Right (QC): 6 Chair/Awe-md-Gifbl Xfer(QC): 6 Car Transfer (QC): 6 Does the Patient Walk: Yes Gait (FIM): 6 Gait distance (FIM): 3=150 ft Distance: >300' Walk 10 feet (QC): 6 Walk 10ft-Uneven Surface(QC): 6 Walk 50ft with 2 Turns (QC): 6 Walk 150 ft (QC): 6 Gait Level of Assist: 6 Gait Assistive Device: FWW Stairs (FIM): 5 # of Steps: 12 1 Step (curb) (QC): 5 4 Steps (QC): 5 12 Steps (QC): 5 Stairs Level Of Assist: 5 Picking up an Object (QC): 5 PT Plan Treatment/Plan Treatment Plan: Continue Plan of Care Treatment Plan: Bed Mobility, Education, Functional Activity Harmony, Functional Strength, Group Therapy, Gait, Safety, Therapeutic Exercise, Transfers Treatment Duration: Sep 26, 2017 Frequency: At least 5 of 7 days/Wk (IRF) Estimated Hrs Per Day: 1.5 hours per day Patient and/or Family Agrees t: Yes Safety Risks/Education Patient Education: Gait Training, Transfer Techniques, Steps Teaching Recipient: Patient Teaching Methods: Demonstration, Discussion Response to Teaching: Verbalize Understanding, Return Demonstration, Reinforcement Needed Time/GCodes Time In: 1300 Time Out: 1315 Total Billed Treatment Time: 15 Total Billed Treatment 1,FA15m G Codes Necessary: HANS Gerard FIBREGLASS LAMINATOR Aug 27, 2017 13:21
--- NOTE | 2017-08-27 13:51 | Occupational Ther Daily Note ---
OT Current Status-Daily Note Subjective Pt in gym at beginning of tx. Agreeable to therapy. No mention of pain. Appearance Alert, cooperative. Mental Status/Objective Functional [place] Measure 0=Not Assessed/NA 4=Minimal Assistance 1=Total Assistance 5=Supervision or Setup 2=Maximal Assistance 6=Modified [place] 3=Moderate Assistance 7=Complete [place] ADL-Treatment Functional [place] Measure 0=Not Assessed/NA 4=Minimal Assistance 1=Total Assistance 5=Supervision or Setup 2=Maximal Assistance 6=Modified [place] 3=Moderate Assistance 7=Complete IndependenceIRFPAI Quality Coding Scale 6 Independent with activity with or without an assistive device 5 Patient requires set up or clean up by helper. Patient completes activity by themselves 4 Supervision or touching assist (CGA). [place] provide cues , steadying assist 3 The helper provides less than half the effort to complete the activity 2 The helper provides more than half the effort to complete the activity 1 Dependent. The helper does all the effort to complete an activity 7 Patient refused to complete or attempt activity 9 The patient did not perform the activity before the current illness or injury 88 Not attempted due to Medical conditions or safety concerns Other Treatment Pt moved through AAROM to increase ROM in shoulder, elbow, and forearm. Used stretching and massage to left shoulder and chest area to increase AROM and decrease pain. Afterward, pt demonstrated a decrease in muscle tension but there is a noticeable difference in shoulder elevation while sitting at EOB as well as a difference in muscle tension when supine as compared to when sitting EOB. Pt walked to room with FWW and SBA. After therapy, pt sitting in recliner with call light/phone in reach. All needs met in room. Education OT Patient Education: Purpose of tx/functional activities Teaching Recipient: Patient Teaching Methods: Demonstration, Discussion Response to Teaching: Verbalize Understanding, Return Demonstration OT Short Term Goals Short Term Goals Time Frame: Sep 05, 2017 Eating(FIM): 5 Grooming(FIM): 5 Toileting(FIM): 3 Toilet/Commode Transfer(FIM): 4 Additional Short Term Goals: 1-Demonstrate ADL Tasks, 2-Verbalize Understanding , 3-ImproveStrength/Harmony 1=Demonstrate adherence to instructed precautions during ADL tasks. 2=Patient will verbalize/demonstrate understanding of assistive devices/ modifications for ADL. 3=Patient will improve strength/tolerance for activity to enable patient to perform ADL's. OT Mcc Goals Mcc Goals Time Frame: Sep 26, 2017 Eating (FIM): 6 Eating (QC): 6 Groomin Oral Hygiene (QC): 6 Bathing(FIM): 5 Shower/Bathe Self (QC): 5 Upper Body Dressing(FIM): 6 Upper Body Dressing (QC): 6 Lower Body Dressing(FIM): 6 Lower Body Dressing (QC): 6 On/Off Footwear (QC): 6 Toileting(FIM): 6 Toileting Hygiene (QC): 6 Toilet/Commode Transfer(FIM): 6 Toilet/Commode Transfer (QC): 6 Shower Transfer(FIM): 5 Comprehension(FIM): 4 Expression (FIM): 5 Social Interaction(FIM): 5 Problem Solving(FIM): 4 Memory(FIM): 4 Additional Goals: 1-Demonstrate ADL Tasks, 2-Verbalize Understanding, 3- ImproveStrength/Harmony 1=Demonstrate adherence to instructed precautions during ADL tasks. 2=Patient will verbalize/demonstrate understanding of assistive devices/ modifications for ADL. 3=Patient will improve strength/tolerance for activity to enable patient to perform ADL's. OT Education/Plan Problem List/Assessment Pt would benefit from skilled OT to increase his independence in basic self care to allow him to safely return to his home or other appropriate placement and to decrease caregiver burden. Discharge Recommendations Plan/Recommendations: Continue POC Treatment Plan/Plan of Care Patient would benefit from OT for education, treatment and training to promote independence in ADL's, mobility, safety and/or upper extremity function for ADL' s. Plan of Care: ADL Retraining, Functional Mobility, Group Exercise/Act as Ind ( educ, exercise, memory, socialization, funct activity, problem solving) Treatment Duration: Sep 26, 2017 Frequency: At least 5 of 7 days/Wk (IRF) Estimated Hrs Per Day: 1.5 hours per day (1.25 to 1.5 hours) Agreement: Yes Rehab Potential: Fair Time/GCodes Start Time: 13:15 Stop Time: 13:45 Total Time Billed (hr/min): 30 Billed Treatment Time visit, NM 2 (30 minutes) PIYUSH WALLS Aug 27, 2017 13:51
[2017-08-27 18:33] VITALS: BP 126/74
[2017-08-28] MEDS: ACETAMINOPHEN 500 MG TAB (TYLENOL) PO PRN (03:36)
[2017-08-28 05:00] VITALS: BP 115/65
[2017-08-28] MEDS: NYSTATIN ORAL SUSP 5 ML UDC PO SCH ×3 (05:05→17:35)
[2017-08-28] MEDS: inSUlin ASPART (NovoLOG) 1 UNIT/0.01 ML (CHARGE PER UNIT) SC SCH ×4 (05:05→22:20)
[2017-08-28] MEDS: THIAMINE 100 MG (VITAMIN B-1) TAB PO SCH (05:55)
[2017-08-28] MEDS: RT-ALBUTEROL/IPRATROPIUM 3 ML (DUONEB) VIAL INH SCH ×4 (07:47→18:31)
--- NOTE | 2017-08-28 07:57 | Occupational Ther Daily Note ---
OT Current Status-Daily Note Subjective Nrsg reported that pt would not keep clothing on. Pt lying in bed and alert. Pt agreed to therapy. No c/o pain. Mental Status/Objective Patient Orientation: Person, Confused Functional [place] Measure 0=Not Assessed/NA 4=Minimal Assistance 1=Total Assistance 5=Supervision or Setup 2=Maximal Assistance 6=Modified [place] 3=Moderate Assistance 7=Complete [place] Attachments: Winters Catheter ADL-Treatment Functional [place] Measure 0=Not Assessed/NA 4=Minimal Assistance 1=Total Assistance 5=Supervision or Setup 2=Maximal Assistance 6=Modified [place] 3=Moderate Assistance 7=Complete IndependenceIRFPAI Quality Coding Scale 6 Independent with activity with or without an assistive device 5 Patient requires set up or clean up by helper. Patient completes activity by themselves 4 Supervision or touching assist (CGA). [place] provide cues , steadying assist 3 The helper provides less than half the effort to complete the activity 2 The helper provides more than half the effort to complete the activity 1 Dependent. The helper does all the effort to complete an activity 7 Patient refused to complete or attempt activity 9 The patient did not perform the activity before the current illness or injury 88 Not attempted due to Medical conditions or safety concerns Eating (FIM): 5 (After set up, pt able to use utensils to feed self.) Eating (QC): 5 Grooming (FIM): 5 (Pt requires verbal cues to complete grooming. Pt is able to complete though requires sequencing and prompting to complete next steps.) Bathing (FIM): 4 (Pt requires physical cues to sequence each step of bathing. After cues, pt is able to cleanse self.) Upper Body (FIM): 4 (Pt requires verbal and physical cues to complete donning/ doffing shirt.) Lower Body Dressing (FIM): 4 (Pt requires verbal and physical cues to complete donning/doffing shirt.) Shower Transfer(FIM): 4 (Using FWW and shower bench pt is able to complete with verbal physical cues.) OT Short Term Goals Short Term Goals Time Frame: Sep 05, 2017 Eating(FIM): 5 Grooming(FIM): 5 Toileting(FIM): 3 Toilet/Commode Transfer(FIM): 4 Additional Short Term Goals: 1-Demonstrate ADL Tasks, 2-Verbalize Understanding , 3-ImproveStrength/Harmony 1=Demonstrate adherence to instructed precautions during ADL tasks. 2=Patient will verbalize/demonstrate understanding of assistive devices/ modifications for ADL. 3=Patient will improve strength/tolerance for activity to enable patient to perform ADL's. OT Showcase Maker Goals Group Home Goals Time Frame: Sep 26, 2017 Eating (FIM): 6 Eating (QC): 6 Groomin Oral Hygiene (QC): 6 Bathing(FIM): 5 Shower/Bathe Self (QC): 5 Upper Body Dressing(FIM): 6 Upper Body Dressing (QC): 6 Lower Body Dressing(FIM): 6 Lower Body Dressing (QC): 6 On/Off Footwear (QC): 6 Toileting(FIM): 6 Toileting Hygiene (QC): 6 Toilet/Commode Transfer(FIM): 6 Toilet/Commode Transfer (QC): 6 Shower Transfer(FIM): 5 Comprehension(FIM): 4 Expression (FIM): 5 Social Interaction(FIM): 5 Problem Solving(FIM): 4 Memory(FIM): 4 Additional Goals: 1-Demonstrate ADL Tasks, 2-Verbalize Understanding, 3- ImproveStrength/Harmony 1=Demonstrate adherence to instructed precautions during ADL tasks. 2=Patient will verbalize/demonstrate understanding of assistive devices/ modifications for ADL. 3=Patient will improve strength/tolerance for activity to enable patient to perform ADL's. OT Education/Plan Problem List/Assessment Pt would benefit from skilled OT to increase his independence in basic self care to allow him to safely return to his home or other appropriate placement and to decrease caregiver burden. Discharge Recommendations Plan/Recommendations: Continue POC Treatment Plan/Plan of Care Patient would benefit from OT for education, treatment and training to promote independence in ADL's, mobility, safety and/or upper extremity function for ADL' s. Plan of Care: ADL Retraining, Functional Mobility, Group Exercise/Act as Ind ( educ, exercise, memory, socialization, funct activity, problem solving) Treatment Duration: Sep 26, 2017 Frequency: At least 5 of 7 days/Wk (IRF) Estimated Hrs Per Day: 1.5 hours per day (1.25 to 1.5 hours) Agreement: Yes Rehab Potential: Fair Time/GCodes Start Time: 07:00 Stop Time: 08:00 Total Time Billed (hr/min): 60 Billed Treatment Time 1 visit-ADL 4 (60 min) PIYUSH WALLS Aug 28, 2017 07:56
[2017-08-28] MEDS: FINASTERIDE (PROSCAR) 5 MG TAB PO SCH (08:57)
[2017-08-28] MEDS: DOCUSATE SODIUM 100 MG (COLACE) CAP PO SCH ×2 (08:57→19:58)
[2017-08-28] MEDS: CARVEDILOL 6.25 MG (COREG) TAB PO SCH ×2 (08:57→19:58)
[2017-08-28] MEDS: ALFUZOSIN HCL 10 MG TAB (UROXATRAL) PO SCH (08:57)
[2017-08-28] MEDS: CIPROFLOXACIN 500 MG (CIPRO) TABLET PO SCH ×2 (08:57→19:58)
[2017-08-28] MEDS: DILTIAZEM 30 MG (CARDIZEM) TAB PO SCH ×3 (08:57→19:58)
[2017-08-28] MEDS: ARTIFICAL TEARS 0.4 ML UNIT DOSE (REFRESH PLUS) OU SCH ×4 (08:57→19:59)
[2017-08-28] MEDS: CHLORHEXIDINE 0.12% SOLN 15 ML (PERIDEX) UDC PO SCH ×2 (08:58→19:58)
[2017-08-28] MEDS: inSUlin DETERMIR 1 UNIT/0.01 ML (LEVEMIR) CHARGE PER UNIT SQ SCH (08:58)
[2017-08-28] MEDS: cloNIDine 0.1 MG (CATAPRES) TAB PO SCH ×2 (08:58→19:58)
--- NOTE | 2017-08-28 09:27 | Physical Therapy Daily Note ---
PT Daily Note-Current Subjective Patient is in recliner and extremely confused. Pain Numeric Pain Scale: 5-Moderate Pain Location: Left Location Body Site: Arm Comment: FLACC Appearance Patient has increase difficulty with following simple direction and complete tasks. Mental Status Patient Orientation: Confused Problem Solvin Memory: 2 Transfers Functional [place] Measure 0=Not Assessed/NA 4=Minimal Assistance 1=Total Assistance 5=Supervision or Setup 2=Maximal Assistance 6=Modified [place] 3=Moderate Assistance 7=Complete IndependenceIRFPAI Quality Coding Scale 6 Independent with activity with or without an assistive device 5 Patient requires set up or clean up by helper. Patient completes activity by themselves 4 Supervision or touching assist (CGA). [place] provide cues , steadying assist 3 The helper provides less than half the effort to complete the activity 2 The helper provides more than half the effort to complete the activity 1 Dependent. The helper does all the effort to complete an activity 7 Patient refused to complete or attempt activity 9 The patient did not perform the activity before the current illness or injury 88 Not attempted due to Medical conditions or safety concerns Transfers (B, C, W/C) (FIM): 5 Scootin Sit to/from Stand: 5 Sit to Stand (QC): 5 Car Transfer (QC): 5 Weight Bearing Right Lower Extremity: Right Full Weight Bearing Left Lower Extremity: Left Full Weight Bearing Gait Training Does the Patient Walk?: Yes Gait (FIM): 5 Distance (FIM): 3=150 ft Distance: 150' x 6 Walk 10 feet (QC): 5 Walk 50 ft with 2 Turns(QC): 5 Walk 150 ft (QC): 5 Gait Level of Assist: 5 Gait Persons Needed: 1 Gait Assistive Device: FWW shuffle gait sequence with decrease jhoan and 90% skilled verbal instruction to remain on task and complete tasks. Exercises Seated Therapy Exercises: Ankle pumps, Long arc quads, Hip flexion, Hip abd/add Seated Reps: 15 (2 sets with continuous redirection to complete tasks) NuStep Minutes: 15 NuStep Workload: 4 (to increase functional mobility) Assessment Patient continues to have extreme difficulty with problem solving and completing simple tasks. From a PT standpoint, patient would benefit from LTCF for safety concerns. PT Drawing Operator Goals Drawing Operator Goals PT Drawing Operator Goals Time Frame: Sep 26, 2017 Transfers (B,C,W/C) (FIM): 6 Sit to Lying (QC): 6 Lying-Sitting on Side/Bed(QC): 6 Sit to Stand (QC): 6 Rollin Roll Left to Right (QC): 6 Chair/Jrt-qe-Ghtbe Xfer(QC): 6 Car Transfer (QC): 6 Does the Patient Walk: Yes Gait (FIM): 6 Gait distance (FIM): 3=150 ft Distance: >300' Walk 10 feet (QC): 6 Walk 10ft-Uneven Surface(QC): 6 Walk 50ft with 2 Turns (QC): 6 Walk 150 ft (QC): 6 Gait Level of Assist: 6 Gait Assistive Device: FWW Stairs (FIM): 5 # of Steps: 12 1 Step (curb) (QC): 5 4 Steps (QC): 5 12 Steps (QC): 5 Stairs Level Of Assist: 5 Picking up an Object (QC): 5 PT Plan Treatment/Plan Treatment Plan: Continue Plan of Care Treatment Plan: Bed Mobility, Education, Functional Activity Harmony, Functional Strength, Group Therapy, Gait, Safety, Therapeutic Exercise, Transfers Treatment Duration: Sep 26, 2017 Frequency: At least 5 of 7 days/Wk (IRF) Estimated Hrs Per Day: 1.5 hours per day Patient and/or Family Agrees t: Yes Time/GCodes Time In: 828 Time Out: 928 Total Billed Treatment Time: 60 Total Billed Treatment 1 visit EX x 2 35 min GT x 2 25 min ALYSA ARELLANO PT Aug 28, 2017 09:27
--- NOTE | 2017-08-28 12:52 | Therapy Group Daily Note ---
Therapy Daily Group Note Patient Education Topic Exercises, Other List Below (problem solving, education/handwashing) Exercises LE Seated Exercise, UE Exercise Other/Notes Patient ambulated to Group Therapy SBA with FWW and is seated to actively participate. Patient did actively participate by performing handwashing techniques and required redirection to remain on task and for problem solving with playing Thanks[employer]actGamesdy. Exercises performed with redirection to complete and perform correctly. Patient also discussed his favorite Thanksgiving food with the Group. he returned to his room, in bed with all four rails up and alarm activated and call light in reach. Start Time: 11:30 Stop Time: 12:15 Total Billed Treatment Time: 45 Total Billed Treatment 1 visit GRP 45 min ALYSA ARELLANO PT Aug 28, 2017 12:52
--- NOTE | 2017-08-28 12:53 | Occupational Ther Daily Note ---
OT Current Status-Daily Note Subjective Pt sleeping in bed, had difficulty waking up. Pt woke and agreed to therapy. No c/o pain. Mental Status/Objective Patient Orientation: Person, Confused Functional [place] Measure 0=Not Assessed/NA 4=Minimal Assistance 1=Total Assistance 5=Supervision or Setup 2=Maximal Assistance 6=Modified [place] 3=Moderate Assistance 7=Complete [place] ADL-Treatment Functional [place] Measure 0=Not Assessed/NA 4=Minimal Assistance 1=Total Assistance 5=Supervision or Setup 2=Maximal Assistance 6=Modified [place] 3=Moderate Assistance 7=Complete IndependenceIRFPAI Quality Coding Scale 6 Independent with activity with or without an assistive device 5 Patient requires set up or clean up by helper. Patient completes activity by themselves 4 Supervision or touching assist (CGA). [place] provide cues , steadying assist 3 The helper provides less than half the effort to complete the activity 2 The helper provides more than half the effort to complete the activity 1 Dependent. The helper does all the effort to complete an activity 7 Patient refused to complete or attempt activity 9 The patient did not perform the activity before the current illness or injury 88 Not attempted due to Medical conditions or safety concerns Other Treatment Pt completed 3 light resistance theraband exercises, 10x's each. Pt required verbal and physical cues to complete properly. After therapy, pt lying in bed and fell asleep quickly after last exercise. Call light/phone in reach. All needs met in room. OT Short Term Goals Short Term Goals Time Frame: Sep 05, 2017 Eating(FIM): 5 Grooming(FIM): 5 Toileting(FIM): 3 Toilet/Commode Transfer(FIM): 4 Additional Short Term Goals: 1-Demonstrate ADL Tasks, 2-Verbalize Understanding , 3-ImproveStrength/Harmony 1=Demonstrate adherence to instructed precautions during ADL tasks. 2=Patient will verbalize/demonstrate understanding of assistive devices/ modifications for ADL. 3=Patient will improve strength/tolerance for activity to enable patient to perform ADL's. OT Mcc Goals Mcc Goals Time Frame: Sep 26, 2017 Eating (FIM): 6 Eating (QC): 6 Groomin Oral Hygiene (QC): 6 Bathing(FIM): 5 Shower/Bathe Self (QC): 5 Upper Body Dressing(FIM): 6 Upper Body Dressing (QC): 6 Lower Body Dressing(FIM): 6 Lower Body Dressing (QC): 6 On/Off Footwear (QC): 6 Toileting(FIM): 6 Toileting Hygiene (QC): 6 Toilet/Commode Transfer(FIM): 6 Toilet/Commode Transfer (QC): 6 Shower Transfer(FIM): 5 Comprehension(FIM): 4 Expression (FIM): 5 Social Interaction(FIM): 5 Problem Solving(FIM): 4 Memory(FIM): 4 Additional Goals: 1-Demonstrate ADL Tasks, 2-Verbalize Understanding, 3- ImproveStrength/Harmony 1=Demonstrate adherence to instructed precautions during ADL tasks. 2=Patient will verbalize/demonstrate understanding of assistive devices/ modifications for ADL. 3=Patient will improve strength/tolerance for activity to enable patient to perform ADL's. OT Education/Plan Problem List/Assessment Pt would benefit from skilled OT to increase his independence in basic self care to allow him to safely return to his home or other appropriate placement and to decrease caregiver burden. Discharge Recommendations Plan/Recommendations: Continue POC Treatment Plan/Plan of Care Patient would benefit from OT for education, treatment and training to promote independence in ADL's, mobility, safety and/or upper extremity function for ADL' s. Plan of Care: ADL Retraining, Functional Mobility, Group Exercise/Act as Ind ( educ, exercise, memory, socialization, funct activity, problem solving) Treatment Duration: Sep 26, 2017 Frequency: At least 5 of 7 days/Wk (IRF) Estimated Hrs Per Day: 1.5 hours per day (1.25 to 1.5 hours) Agreement: Yes Rehab Potential: Fair Time/GCodes Start Time: 11:05 Stop Time: 11:20 Total Time Billed (hr/min): 15 Billed Treatment Time 1 visit-EX 1 (15 min) PIYUSH WALLS Aug 28, 2017 12:53
[2017-08-28 17:07] VITALS: BP 114/74
[2017-08-29] MEDS: NYSTATIN ORAL SUSP 5 ML UDC PO SCH ×5 (00:14→23:28)
[2017-08-29 06:45] VITALS: BP 122/78
[2017-08-29] MEDS: THIAMINE 100 MG (VITAMIN B-1) TAB PO SCH (06:45)
[2017-08-29] MEDS: inSUlin ASPART (NovoLOG) 1 UNIT/0.01 ML (CHARGE PER UNIT) SC SCH ×4 (06:48→21:04)
[2017-08-29] MEDS: RT-ALBUTEROL/IPRATROPIUM 3 ML (DUONEB) VIAL INH SCH ×4 (07:17→18:51)
[2017-08-29] MEDS: ARTIFICAL TEARS 0.4 ML UNIT DOSE (REFRESH PLUS) OU SCH ×5 (08:56→20:55)
[2017-08-29] MEDS: ALFUZOSIN HCL 10 MG TAB (UROXATRAL) PO SCH (08:57)
[2017-08-29] MEDS: FINASTERIDE (PROSCAR) 5 MG TAB PO SCH (08:57)
[2017-08-29] MEDS: CIPROFLOXACIN 500 MG (CIPRO) TABLET PO SCH ×2 (08:57→20:56)
[2017-08-29] MEDS: CHLORHEXIDINE 0.12% SOLN 15 ML (PERIDEX) UDC PO SCH ×2 (08:57→20:55)
[2017-08-29] MEDS: CARVEDILOL 6.25 MG (COREG) TAB PO SCH ×2 (08:57→21:04)
[2017-08-29] MEDS: cloNIDine 0.1 MG (CATAPRES) TAB PO SCH ×2 (08:57→21:04)
[2017-08-29] MEDS: DILTIAZEM 30 MG (CARDIZEM) TAB PO SCH ×3 (08:57→21:04)
[2017-08-29] MEDS: DOCUSATE SODIUM 100 MG (COLACE) CAP PO SCH ×2 (08:57→20:56)
[2017-08-29] MEDS: inSUlin DETERMIR 1 UNIT/0.01 ML (LEVEMIR) CHARGE PER UNIT SQ SCH (08:57)
--- NOTE | 2017-08-29 10:02 | Physical Therapy Daily Note ---
PT Daily Note-Current Subjective Patient in recliner pre tx, agrees to PT, has no complaints of pain. Appearance Patient in chair post tx with nurse call, phone, tray, chair alarm on, all needs met. Mental Status Patient Orientation: Confused Attachments: Winters Catheter Transfers Functional [place] Measure 0=Not Assessed/NA 4=Minimal Assistance 1=Total Assistance 5=Supervision or Setup 2=Maximal Assistance 6=Modified [place] 3=Moderate Assistance 7=Complete IndependenceIRFPAI Quality Coding Scale 6 Independent with activity with or without an assistive device 5 Patient requires set up or clean up by helper. Patient completes activity by themselves 4 Supervision or touching assist (CGA). [place] provide cues , steadying assist 3 The helper provides less than half the effort to complete the activity 2 The helper provides more than half the effort to complete the activity 1 Dependent. The helper does all the effort to complete an activity 7 Patient refused to complete or attempt activity 9 The patient did not perform the activity before the current illness or injury 88 Not attempted due to Medical conditions or safety concerns Transfers (B, C, W/C) (FIM): 5 Sit to/from Stand: 5 slow, needs direction cues and safety Weight Bearing Right Lower Extremity: Right Full Weight Bearing Left Lower Extremity: Left Full Weight Bearing Gait Training Gait (FIM): 2 Distance: 100'x2 Gait Level of Assist: 5 Gait Persons Needed: 1 Gait Assistive Device: FWW Exercises NuStep Minutes: 15 NuStep Workload: 5 Treatments transfers, ambulation, functional strengthening Assessment Current Status: Poor Progress patient remains very confused PT Mcfp Goals Assistant Paralegal Goals PT Mcfp Goals Time Frame: Sep 26, 2017 Transfers (B,C,W/C) (FIM): 6 Sit to Lying (QC): 6 Lying-Sitting on Side/Bed(QC): 6 Sit to Stand (QC): 6 Rollin Roll Left to Right (QC): 6 Chair/Orx-hl-Dkiiz Xfer(QC): 6 Car Transfer (QC): 6 Does the Patient Walk: Yes Gait (FIM): 6 Gait distance (FIM): 3=150 ft Distance: >300' Walk 10 feet (QC): 6 Walk 10ft-Uneven Surface(QC): 6 Walk 50ft with 2 Turns (QC): 6 Walk 150 ft (QC): 6 Gait Level of Assist: 6 Gait Assistive Device: FWW Stairs (FIM): 5 # of Steps: 12 1 Step (curb) (QC): 5 4 Steps (QC): 5 12 Steps (QC): 5 Stairs Level Of Assist: 5 Picking up an Object (QC): 5 PT Plan Problem List Problem List: Activity Tolerance, Functional Strength, Safety, Balance, Gait, Transfer, Bed Mobility, ROM Treatment/Plan Treatment Plan: Continue Plan of Care Treatment Plan: Bed Mobility, Education, Functional Activity Harmony, Functional Strength, Group Therapy, Gait, Safety, Therapeutic Exercise, Transfers Treatment Duration: Sep 26, 2017 Frequency: At least 5 of 7 days/Wk (IRF) Estimated Hrs Per Day: 1.5 hours per day Patient and/or Family Agrees t: Yes Safety Risks/Education Patient Education: Gait Training, Transfer Techniques, Correct Positioning, Safety Issues Teaching Recipient: Patient Teaching Methods: Demonstration, Discussion Response to Teaching: Reinforcement Needed Time/GCodes Time In: 930 Time Out: 1001 Total Billed Treatment Time: 31 Total Billed Treatment 1 visit GT 16' EX 15' FREDY STANLEY PT Aug 29, 2017 10:02
--- NOTE | 2017-08-29 11:31 | Physical Therapy Daily Note ---
PT Daily Note-Current Subjective Patient in recliner pre tx, agrees to PT, has no complaints of pain but states that his left hand hurts when he is ambulating using the rolling walker. Appearance Patient in recliner post tx with nurse call, phone, tray, chair alarm on, family in the room. Mental Status Patient Orientation: Confused Attachments: Winters Catheter Transfers Functional [place] Measure 0=Not Assessed/NA 4=Minimal Assistance 1=Total Assistance 5=Supervision or Setup 2=Maximal Assistance 6=Modified [place] 3=Moderate Assistance 7=Complete IndependenceIRFPAI Quality Coding Scale 6 Independent with activity with or without an assistive device 5 Patient requires set up or clean up by helper. Patient completes activity by themselves 4 Supervision or touching assist (CGA). [place] provide cues , steadying assist 3 The helper provides less than half the effort to complete the activity 2 The helper provides more than half the effort to complete the activity 1 Dependent. The helper does all the effort to complete an activity 7 Patient refused to complete or attempt activity 9 The patient did not perform the activity before the current illness or injury 88 Not attempted due to Medical conditions or safety concerns Transfers (B, C, W/C) (FIM): 5 Sit to/from Stand: 5 cues for safety and hand placement Weight Bearing Right Lower Extremity: Right Full Weight Bearing Left Lower Extremity: Left Full Weight Bearing Gait Training Gait (FIM): 4 Distance: 200'x3 Gait Level of Assist: 4 Gait Persons Needed: 1 Gait Assistive Device: FWW CGA, slow, needs occasional cues for direction, CGA Treatments transfers, ambulation Assessment Current Status: Fair Progress improving endurance but he does need rest breaks between activities PT Weather Forecaster Goals Weather Forecaster Goals PT Alf Goals Time Frame: Sep 26, 2017 Transfers (B,C,W/C) (FIM): 6 Sit to Lying (QC): 6 Lying-Sitting on Side/Bed(QC): 6 Sit to Stand (QC): 6 Rollin Roll Left to Right (QC): 6 Chair/Kcm-ap-Sprxg Xfer(QC): 6 Car Transfer (QC): 6 Does the Patient Walk: Yes Gait (FIM): 6 Gait distance (FIM): 3=150 ft Distance: >300' Walk 10 feet (QC): 6 Walk 10ft-Uneven Surface(QC): 6 Walk 50ft with 2 Turns (QC): 6 Walk 150 ft (QC): 6 Gait Level of Assist: 6 Gait Assistive Device: FWW Stairs (FIM): 5 # of Steps: 12 1 Step (curb) (QC): 5 4 Steps (QC): 5 12 Steps (QC): 5 Stairs Level Of Assist: 5 Picking up an Object (QC): 5 PT Plan Problem List Problem List: Activity Tolerance, Functional Strength, Safety, Balance, Gait, Transfer, Bed Mobility Treatment/Plan Treatment Plan: Continue Plan of Care Treatment Plan: Bed Mobility, Education, Functional Activity Harmony, Functional Strength, Group Therapy, Gait, Safety, Therapeutic Exercise, Transfers Treatment Duration: Sep 26, 2017 Frequency: At least 5 of 7 days/Wk (IRF) Estimated Hrs Per Day: 1.5 hours per day Patient and/or Family Agrees t: Yes Safety Risks/Education Patient Education: Gait Training, Transfer Techniques, Correct Positioning, Safety Issues Teaching Recipient: Patient Teaching Methods: Demonstration, Discussion Response to Teaching: Reinforcement Needed Time/GCodes Time In: 1100 Time Out: 1130 Total Billed Treatment Time: 30 Total Billed Treatment 1 visit GT 30' FREDY STANLEY PT Aug 29, 2017 11:31
--- NOTE | 2017-08-29 11:51 | Occupational Ther Daily Note ---
OT Current Status-Daily Note Subjective Pt supine in bed at beginning of tx. Agreeable to therapy. No mention of pain. Appearance Alert, cooperative, some confusion. Mental Status/Objective Functional [place] Measure 0=Not Assessed/NA 4=Minimal Assistance 1=Total Assistance 5=Supervision or Setup 2=Maximal Assistance 6=Modified [place] 3=Moderate Assistance 7=Complete [place] ADL-Treatment Functional [place] Measure 0=Not Assessed/NA 4=Minimal Assistance 1=Total Assistance 5=Supervision or Setup 2=Maximal Assistance 6=Modified [place] 3=Moderate Assistance 7=Complete IndependenceIRFPAI Quality Coding Scale 6 Independent with activity with or without an assistive device 5 Patient requires set up or clean up by helper. Patient completes activity by themselves 4 Supervision or touching assist (CGA). [place] provide cues , steadying assist 3 The helper provides less than half the effort to complete the activity 2 The helper provides more than half the effort to complete the activity 1 Dependent. The helper does all the effort to complete an activity 7 Patient refused to complete or attempt activity 9 The patient did not perform the activity before the current illness or injury 88 Not attempted due to Medical conditions or safety concerns Eating (FIM): 4 (Pt able to open containers given enough time but needed assist to open milk carton. Able to get food to mouth and get drink from glass) Grooming (FIM): 5 (Pt able to brush dentures but took 2 tries to get them properly placed in mouth. Able to wash face after skilled verbal cues Accessible sink, FWW. ) Upper Body (FIM): 3 (Pt donned pullover shirt but needed assist to get head in correct hole and pull down back of shirt. 60%. ) Lower Body Dressing (FIM): 2 (Needed assist to thread underwear and shorts, CGA to stand to manage clothing, with help. FWW) Pt able to transfer supine to EOB with SBA. Pt confused about what his feeding tube was, its purpose, and when he got it. Pt perseverated on feeding tube and catheter and needed several verbal reminders to not pull on either one. Once he was dressed and the tubes no longer visible, this was not a problem. While putting in dentures, pt attempted to put them in both upside down and with the top on bottom and bottom on top. When the dentures were in, he stated that they still didn't feel right but once out of the bathroom, didn't mention them feeling funny again. Pt needed reminders to reach back when sitting and push up when standing but was only successful 50% of the time. Pt confused as to where his clothes and the hygiene items in his room came from, asking if he got them because he was on welfare. Pt was in recliner with chair alarm set, with all needs met at end of tx. Education OT Patient Education: Modified ADL techniques, Purpose of tx/functional activities, Transfer techniques Teaching Recipient: Patient Teaching Methods: Demonstration, Discussion Response to Teaching: Verbalize Understanding, Return Demonstration, Reinforcement Needed OT Short Term Goals Short Term Goals Time Frame: Sep 05, 2017 Eating(FIM): 5 Grooming(FIM): 5 Toileting(FIM): 3 Toilet/Commode Transfer(FIM): 4 Additional Short Term Goals: 1-Demonstrate ADL Tasks, 2-Verbalize Understanding , 3-ImproveStrength/Harmony 1=Demonstrate adherence to instructed precautions during ADL tasks. 2=Patient will verbalize/demonstrate understanding of assistive devices/ modifications for ADL. 3=Patient will improve strength/tolerance for activity to enable patient to perform ADL's. OT Massage Coordinator Goals Massage Coordinator Goals Time Frame: Sep 26, 2017 Eating (FIM): 6 Eating (QC): 6 Groomin Oral Hygiene (QC): 6 Bathing(FIM): 5 Shower/Bathe Self (QC): 5 Upper Body Dressing(FIM): 6 Upper Body Dressing (QC): 6 Lower Body Dressing(FIM): 6 Lower Body Dressing (QC): 6 On/Off Footwear (QC): 6 Toileting(FIM): 6 Toileting Hygiene (QC): 6 Toilet/Commode Transfer(FIM): 6 Toilet/Commode Transfer (QC): 6 Shower Transfer(FIM): 5 Comprehension(FIM): 4 Expression (FIM): 5 Social Interaction(FIM): 5 Problem Solving(FIM): 4 Memory(FIM): 4 Additional Goals: 1-Demonstrate ADL Tasks, 2-Verbalize Understanding, 3- ImproveStrength/Harmony 1=Demonstrate adherence to instructed precautions during ADL tasks. 2=Patient will verbalize/demonstrate understanding of assistive devices/ modifications for ADL. 3=Patient will improve strength/tolerance for activity to enable patient to perform ADL's. OT Education/Plan Problem List/Assessment Pt would benefit from skilled OT to increase his independence in basic self care to allow him to safely return to his home or other appropriate placement and to decrease caregiver burden. Discharge Recommendations Plan/Recommendations: Continue POC Treatment Plan/Plan of Care Patient would benefit from OT for education, treatment and training to promote independence in ADL's, mobility, safety and/or upper extremity function for ADL' s. Plan of Care: ADL Retraining, Functional Mobility, Group Exercise/Act as Ind ( educ, exercise, memory, socialization, funct activity, problem solving) Treatment Duration: Sep 26, 2017 Frequency: At least 5 of 7 days/Wk (IRF) Estimated Hrs Per Day: 1.5 hours per day (1.25 to 1.5 hours) Agreement: Yes Rehab Potential: Fair Time/GCodes Start Time: 08:15 Stop Time: 09:00 Total Time Billed (hr/min): 45 Billed Treatment Time visit, ADL 45 minutes SCHUYLER ALVARADO OT Aug 29, 2017 11:51
--- NOTE | 2017-08-29 12:48 | Speech Therapy Daily Note ---
Speech Daily Progress Note Subjective Date Seen by Provider: Aug 29, 2017 Time Seen by Provider: 10:00 The patient was seated in recliner upon entrance. The patient greeted the clinician appropriately and was agreeable to participation in the cognitive treatment session. Objective Functional Recall: The patient was unable to recall physical therapy or occupational therapy tasks which occurred directly prior to the speech pathologist's session. With cueing, the patient stated, "I think they got me dressed." The patient continues to demonstrate confusion with daily tasks and recall. Orientation: The patient continues to require maximum verbal prompting from the clinician to recall and identify simple orientation tasks including month, day of week, location, and year. The patient did independently locate year on the white board on one of three occasions. JASMIN (Assessment of Language Related Functional Activities): The patient was asked to complete functional tasks on this date with the below results: - Telling Time: The patient demonstrates 30% accuracy with telling time on an analog clock. Accuracy was increased to 50% with moderate verbal prompting by the clinician. Assessment Assessment Current Status: Poor Progress Treatment Plan Continue Plan of Care Communication Comprehension: 2 Expression: 2 Social Cognition Social Interaction: 2 Problem Solvin Memory: 1 Speech Short Term Goals Short Term Goals Short Term Goals 1. The patient will recall and demonstrate three functional memory strategies for use at home. 2. The patient will complete functional ADL tasks (clock reading, check writing , etc) with 80% accuracy and mild clinician cueing. 3. The patient will accurately sequence ADL activities with 80% accuracy, independently. 4. The patient will complete structured word-finding tasks with 80% accuracy and mild clinician cueing. Time Frame-STG: One Week Speech Chcf Goals Chcf Goals 1. The patient will display improved cognitive linguistic skills for increased function and safety with ADL's in the least restrictive setting. Time Frame: Two Weeks Comprehension: 4 Expression: 5 Social Interaction: 5 Problem Solvin Memory: 4 Speech-Plan Treatment Plan Speech Therapy Treatment Plan: Continue Plan of Care Continue skilled speech pathology to target functional communication and problem solving. Treatment Duration: Sep 05, 2017 Frequency: Modified Program (IRF) (Three to Five Times Per Week) Estimated Hrs Per Day: .5 hour per day Rehab Potential: Fair Safety Risks/Education Teaching Recipient: Patient Teaching Methods: Demonstration, Discussion Response to Teaching: Reinforcement Needed Education Topics Provided: Telling Time on Analog Clock Time Speech Therapy Time In: 10:00 Speech Therapy Time Out: 10:30 Total Billed Time: 30 Billed Treatment Time 1, NURIA ALONSO Aug 29, 2017 12:48
--- NOTE | 2017-08-29 13:39 | Occupational Ther Daily Note ---
OT Current Status-Daily Note Subjective Pt on toilet at beginning of tx. Agreeable to therapy. No mention of pain. Appearance Confused, mostly cooperative. Mental Status/Objective Functional [place] Measure 0=Not Assessed/NA 4=Minimal Assistance 1=Total Assistance 5=Supervision or Setup 2=Maximal Assistance 6=Modified [place] 3=Moderate Assistance 7=Complete [place] ADL-Treatment Functional [place] Measure 0=Not Assessed/NA 4=Minimal Assistance 1=Total Assistance 5=Supervision or Setup 2=Maximal Assistance 6=Modified [place] 3=Moderate Assistance 7=Complete IndependenceIRFPAI Quality Coding Scale 6 Independent with activity with or without an assistive device 5 Patient requires set up or clean up by helper. Patient completes activity by themselves 4 Supervision or touching assist (CGA). [place] provide cues , steadying assist 3 The helper provides less than half the effort to complete the activity 2 The helper provides more than half the effort to complete the activity 1 Dependent. The helper does all the effort to complete an activity 7 Patient refused to complete or attempt activity 9 The patient did not perform the activity before the current illness or injury 88 Not attempted due to Medical conditions or safety concerns Lower Body Dressing (FIM): 2 (Pt needed assist to thread brief and shorts, SBA to stand, needed assist to hike shorts over hips. Grab bars) Toileting (FIM): 2 (Needed assist to complete hygiene and hike pants over hips , SBA for standing to manage clothing. Grab bars, BSC) Toilet/Commode Transfer (FIM): 5 (Able to transfer off toilet with SBA. BSC, grab bars. Verbal cues to grasp FWW instead of pulling on catheter.) Pt on toilet at beginning of tx, stated that his clothes were "contaminated with urine" and needed clean ones. While working on lower body dressing, pt perseverated on catheter while on the toilet, pulling on the hoses and attempting to reroute where the urine went. This required consistent verbal cues to not pull on the catheter. Pt walked with FWW and SBA to sink to wash hands but grabbed the toothpaste instead. Once cued, verbally and visually, to the location of soap, pt was able to wash hands with SBA. Pt c/o being tired, so walked to bed with FWW and CGA due to fatigue. Pt perseverated on catheter again and tried to reroute the hoses and wouldn't let go of the catheter. With verbal and tactile cues, pt transferred to supine in bed. Pt in bed, four rails up, bed alarm on, all needs met at end of tx. Education OT Patient Education: Modified ADL techniques, Purpose of tx/functional activities, Safety issues Teaching Recipient: Patient Teaching Methods: Demonstration, Discussion Response to Teaching: Unable to Comprehend, Reinforcement Needed OT Short Term Goals Short Term Goals Time Frame: Sep 05, 2017 Eating(FIM): 5 Grooming(FIM): 5 Toileting(FIM): 3 Toilet/Commode Transfer(FIM): 4 Additional Short Term Goals: 1-Demonstrate ADL Tasks, 2-Verbalize Understanding , 3-ImproveStrength/Harmony 1=Demonstrate adherence to instructed precautions during ADL tasks. 2=Patient will verbalize/demonstrate understanding of assistive devices/ modifications for ADL. 3=Patient will improve strength/tolerance for activity to enable patient to perform ADL's. OT Mechanical Detailer Goals Care Home Goals Time Frame: Sep 26, 2017 Eating (FIM): 6 Eating (QC): 6 Groomin Oral Hygiene (QC): 6 Bathing(FIM): 5 Shower/Bathe Self (QC): 5 Upper Body Dressing(FIM): 6 Upper Body Dressing (QC): 6 Lower Body Dressing(FIM): 6 Lower Body Dressing (QC): 6 On/Off Footwear (QC): 6 Toileting(FIM): 6 Toileting Hygiene (QC): 6 Toilet/Commode Transfer(FIM): 6 Toilet/Commode Transfer (QC): 6 Shower Transfer(FIM): 5 Comprehension(FIM): 4 Expression (FIM): 5 Social Interaction(FIM): 5 Problem Solving(FIM): 4 Memory(FIM): 4 Additional Goals: 1-Demonstrate ADL Tasks, 2-Verbalize Understanding, 3- ImproveStrength/Harmony 1=Demonstrate adherence to instructed precautions during ADL tasks. 2=Patient will verbalize/demonstrate understanding of assistive devices/ modifications for ADL. 3=Patient will improve strength/tolerance for activity to enable patient to perform ADL's. OT Education/Plan Problem List/Assessment Pt would benefit from skilled OT to increase his independence in basic self care to allow him to safely return to his home or other appropriate placement and to decrease caregiver burden. Discharge Recommendations Plan/Recommendations: Continue POC Treatment Plan/Plan of Care Patient would benefit from OT for education, treatment and training to promote independence in ADL's, mobility, safety and/or upper extremity function for ADL' s. Plan of Care: ADL Retraining, Functional Mobility, Group Exercise/Act as Ind ( educ, exercise, memory, socialization, funct activity, problem solving) Treatment Duration: Sep 26, 2017 Frequency: At least 5 of 7 days/Wk (IRF) Estimated Hrs Per Day: 1.5 hours per day (1.25 to 1.5 hours) Agreement: Yes Rehab Potential: Fair Time/GCodes Start Time: 13:00 Stop Time: 13:30 Total Time Billed (hr/min): 30 Billed Treatment Time visit, FA 30 minutes PIYUSH WALLS Aug 29, 2017 13:39
--- NOTE | 2017-08-29 14:19 | Physical Therapy Daily Note ---
PT Daily Note-Current Subjective Patient in bed pre tx, agrees to PT, no complaints of pain Appearance Patient BTB pos tx with nurse call, phone, tray, bed alarm on. Mental Status Patient Orientation: Confused Attachments: Stein Catheter Transfers Functional [place] Measure 0=Not Assessed/NA 4=Minimal Assistance 1=Total Assistance 5=Supervision or Setup 2=Maximal Assistance 6=Modified [place] 3=Moderate Assistance 7=Complete IndependenceIRFPAI Quality Coding Scale 6 Independent with activity with or without an assistive device 5 Patient requires set up or clean up by helper. Patient completes activity by themselves 4 Supervision or touching assist (CGA). [place] provide cues , steadying assist 3 The helper provides less than half the effort to complete the activity 2 The helper provides more than half the effort to complete the activity 1 Dependent. The helper does all the effort to complete an activity 7 Patient refused to complete or attempt activity 9 The patient did not perform the activity before the current illness or injury 88 Not attempted due to Medical conditions or safety concerns Transfers (B, C, W/C) (FIM): 4 Scootin Rollin Supine to/from Sit: 4 (min assist for sit to supine) Sit to/from Stand: 5 Weight Bearing Right Lower Extremity: Right Full Weight Bearing Left Lower Extremity: Left Full Weight Bearing Gait Training Gait (FIM): 44 Distance: 250', 100' Gait Level of Assist: 4 Gait Persons Needed: 1 Gait Assistive Device: FWW CGA, cues for safety and direction Exercises Standing: Heel/toe raises, Mini squats Standing Reps: 20 LAQ alternating for 5 min Assessment Current Status: Fair Progress improving endurance but still needs rest breaks between activities and gets SOB , patient was perseverating on the function of his stein catheter PT Correction Goals Correction Goals PT Hospice Liaison Goals Time Frame: Sep 26, 2017 Transfers (B,C,W/C) (FIM): 6 Sit to Lying (QC): 6 Lying-Sitting on Side/Bed(QC): 6 Sit to Stand (QC): 6 Rollin Roll Left to Right (QC): 6 Chair/Vkk-iw-Gujii Xfer(QC): 6 Car Transfer (QC): 6 Does the Patient Walk: Yes Gait (FIM): 6 Gait distance (FIM): 3=150 ft Distance: >300' Walk 10 feet (QC): 6 Walk 10ft-Uneven Surface(QC): 6 Walk 50ft with 2 Turns (QC): 6 Walk 150 ft (QC): 6 Gait Level of Assist: 6 Gait Assistive Device: FWW Stairs (FIM): 5 # of Steps: 12 1 Step (curb) (QC): 5 4 Steps (QC): 5 12 Steps (QC): 5 Stairs Level Of Assist: 5 Picking up an Object (QC): 5 PT Plan Problem List Problem List: Activity Tolerance, Functional Strength, Safety, Balance, Gait, Transfer, Bed Mobility Treatment/Plan Treatment Plan: Continue Plan of Care Treatment Plan: Bed Mobility, Education, Functional Activity Harmony, Functional Strength, Group Therapy, Gait, Safety, Therapeutic Exercise, Transfers Treatment Duration: Sep 26, 2017 Frequency: At least 5 of 7 days/Wk (IRF) Estimated Hrs Per Day: 1.5 hours per day Patient and/or Family Agrees t: Yes Safety Risks/Education Patient Education: Gait Training, Transfer Techniques, Correct Positioning, Safety Issues Teaching Recipient: Patient Teaching Methods: Demonstration, Discussion Response to Teaching: Reinforcement Needed Time/GCodes Time In: 1345 Time Out: 1415 Total Billed Treatment Time: 30 Total Billed Treatment 1 visit EX 15' GT 15' FREDY STANLEY PT Aug 29, 2017 14:19
[2017-08-29 18:00] VITALS: BP 95/66
[2017-08-29 19:50] VITALS: BP 114/73
[2017-08-30 06:10] VITALS: BP 122/75
[2017-08-30] MEDS: inSUlin ASPART (NovoLOG) 1 UNIT/0.01 ML (CHARGE PER UNIT) SC SCH ×4 (06:17→20:20)
[2017-08-30] MEDS: NYSTATIN ORAL SUSP 5 ML UDC PO SCH ×3 (06:17→17:07)
[2017-08-30] MEDS: THIAMINE 100 MG (VITAMIN B-1) TAB PO SCH (06:17)
[2017-08-30] MEDS: RT-ALBUTEROL/IPRATROPIUM 3 ML (DUONEB) VIAL INH SCH ×4 (06:30→19:50)
[2017-08-30] MEDS: cloNIDine 0.1 MG (CATAPRES) TAB PO SCH ×2 (09:05→20:19)
[2017-08-30] MEDS: DOCUSATE SODIUM 100 MG (COLACE) CAP PO SCH ×2 (09:05→20:19)
[2017-08-30] MEDS: ALFUZOSIN HCL 10 MG TAB (UROXATRAL) PO SCH (09:05)
[2017-08-30] MEDS: FINASTERIDE (PROSCAR) 5 MG TAB PO SCH (09:05)
[2017-08-30] MEDS: CHLORHEXIDINE 0.12% SOLN 15 ML (PERIDEX) UDC PO SCH ×2 (09:05→20:18)
[2017-08-30] MEDS: ARTIFICAL TEARS 0.4 ML UNIT DOSE (REFRESH PLUS) OU SCH ×4 (09:05→20:20)
[2017-08-30] MEDS: DILTIAZEM 30 MG (CARDIZEM) TAB PO SCH ×3 (09:06→20:19)
[2017-08-30] MEDS: inSUlin DETERMIR 1 UNIT/0.01 ML (LEVEMIR) CHARGE PER UNIT SQ SCH (09:06)
[2017-08-30] MEDS: CIPROFLOXACIN 500 MG (CIPRO) TABLET PO SCH ×2 (09:06→20:19)
[2017-08-30] MEDS: CARVEDILOL 6.25 MG (COREG) TAB PO SCH ×2 (09:06→20:19)
--- NOTE | 2017-08-30 10:20 | Physical Therapy Daily Note ---
PT Daily Note-Current Subjective Pt. in bed, agrees to up and about for gait and TRF training Pain Numeric Pain Scale: 0-No Pain Mental Status Patient Orientation: Confused Attachments: Dra[place], [place] Catheter Transfers Functional [place] Measure 0=Not Assessed/NA 4=Minimal Assistance 1=Total Assistance 5=Supervision or Setup 2=Maximal Assistance 6=Modified [place] 3=Moderate Assistance 7=Complete IndependenceIRFPAI Quality Coding Scale 6 Independent with activity with or without an assistive device 5 Patient requires set up or clean up by helper. Patient completes activity by themselves 4 Supervision or touching assist (CGA). [place] provide cues , steadying assist 3 The helper provides less than half the effort to complete the activity 2 The helper provides more than half the effort to complete the activity 1 Dependent. The helper does all the effort to complete an activity 7 Patient refused to complete or attempt activity 9 The patient did not perform the activity before the current illness or injury 88 Not attempted due to Medical conditions or safety concerns Transfers (B, C, W/C) (FIM): 5 Scootin Rollin Supine to/from Sit: 5 Sit to/from Stand: 5 needs cues for safety Weight Bearing Right Lower Extremity: Right Full Weight Bearing Left Lower Extremity: Left Full Weight Bearing Gait Training Does the Patient Walk?: Yes Gait (FIM): 4 Distance (FIM): 3=150 ft (00) Gait Level of Assist: 4 Gait Persons Needed: 1 Gait Assistive Device: FWW concentrated on turns and efficient use of FWW Exercises Seated Therapy Exercises: Ankle pumps, Sit to stand, Long arc quads, Hip flexion, Hip abd/add Seated Reps: 8 Assessment Current Status: Good Progress needs repeated instruction PT Prison Goals Prison Goals PT Prison Goals Time Frame: Sep 26, 2017 Transfers (B,C,W/C) (FIM): 6 Sit to Lying (QC): 6 Lying-Sitting on Side/Bed(QC): 6 Sit to Stand (QC): 6 Rollin Roll Left to Right (QC): 6 Chair/Kxi-ut-Lptzo Xfer(QC): 6 Car Transfer (QC): 6 Does the Patient Walk: Yes Gait (FIM): 6 Gait distance (FIM): 3=150 ft Distance: >300' Walk 10 feet (QC): 6 Walk 10ft-Uneven Surface(QC): 6 Walk 50ft with 2 Turns (QC): 6 Walk 150 ft (QC): 6 Gait Level of Assist: 6 Gait Assistive Device: FWW Stairs (FIM): 5 # of Steps: 12 1 Step (curb) (QC): 5 4 Steps (QC): 5 12 Steps (QC): 5 Stairs Level Of Assist: 5 Picking up an Object (QC): 5 PT Plan Treatment/Plan Treatment Plan: Continue Plan of Care Treatment Plan: Bed Mobility, Education, Functional Activity Harmony, Functional Strength, Group Therapy, Gait, Safety, Therapeutic Exercise, Transfers Treatment Duration: Sep 26, 2017 Frequency: At least 5 of 7 days/Wk (IRF) Estimated Hrs Per Day: 1.5 hours per day Patient and/or Family Agrees t: Yes Safety Risks/Education Patient Education: Gait Training, Transfer Techniques, Correct Positioning, Safety Issues Teaching Recipient: Patient Teaching Methods: Demonstration, Discussion Response to Teaching: Verbalize Understanding, Return Demonstration, Reinforcement Needed Time/GCodes Time In: 845 Time Out: 905 Total Billed Treatment Time: 20 Total Billed Treatment 1,GT20m G Codes Necessary: HANS Gerard OUTGOING INSPECTOR Aug 30, 2017 10:20
[2017-08-30 18:01] VITALS: BP 130/77
[2017-08-30 20:19] VITALS: BP 135/65
[2017-08-31] MEDS: NYSTATIN ORAL SUSP 5 ML UDC PO SCH ×4 (00:15→18:06)
[2017-08-31 05:10] VITALS: BP 113/70
[2017-08-31] MEDS: inSUlin ASPART (NovoLOG) 1 UNIT/0.01 ML (CHARGE PER UNIT) SC SCH ×4 (05:29→21:00)
[2017-08-31] MEDS: THIAMINE 100 MG (VITAMIN B-1) TAB PO SCH (06:28)
[2017-08-31] MEDS: RT-ALBUTEROL/IPRATROPIUM 3 ML (DUONEB) VIAL INH SCH ×4 (06:41→18:03)
[2017-08-31] MEDS: CHLORHEXIDINE 0.12% SOLN 15 ML (PERIDEX) UDC PO SCH ×2 (09:06→21:02)
[2017-08-31] MEDS: FINASTERIDE (PROSCAR) 5 MG TAB PO SCH (09:07)
[2017-08-31] MEDS: inSUlin DETERMIR 1 UNIT/0.01 ML (LEVEMIR) CHARGE PER UNIT SQ SCH (09:07)
[2017-08-31] MEDS: cloNIDine 0.1 MG (CATAPRES) TAB PO SCH ×2 (09:08→21:17)
[2017-08-31] MEDS: CARVEDILOL 6.25 MG (COREG) TAB PO SCH ×2 (09:08→21:02)
[2017-08-31] MEDS: DILTIAZEM 30 MG (CARDIZEM) TAB PO SCH ×3 (09:08→21:02)
[2017-08-31] MEDS: DOCUSATE SODIUM 100 MG (COLACE) CAP PO SCH ×2 (09:08→21:02)
[2017-08-31] MEDS: ALFUZOSIN HCL 10 MG TAB (UROXATRAL) PO SCH (09:08)
[2017-08-31] MEDS: ARTIFICAL TEARS 0.4 ML UNIT DOSE (REFRESH PLUS) OU SCH ×4 (09:08→21:02)
[2017-08-31] MEDS: CIPROFLOXACIN 500 MG (CIPRO) TABLET PO SCH ×2 (09:08→21:02)
[2017-08-31 18:16] VITALS: BP 120/72
[2017-09-01] MEDS: NYSTATIN ORAL SUSP 5 ML UDC PO SCH ×5 (00:08→23:11)
[2017-09-01] MEDS: RT-ALBUTEROL/IPRATROPIUM 3 ML (DUONEB) VIAL INH SCH (06:30)
[2017-09-01 06:40] VITALS: BP 123/71
[2017-09-01] MEDS: THIAMINE 100 MG (VITAMIN B-1) TAB PO SCH (06:43)
[2017-09-01] MEDS: inSUlin ASPART (NovoLOG) 1 UNIT/0.01 ML (CHARGE PER UNIT) SC SCH ×4 (06:43→20:27)
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
[2017-09-01] MEDS: CIPROFLOXACIN 500 MG (CIPRO) TABLET PO SCH ×2 (08:26→20:07)
[2017-09-01] MEDS: CARVEDILOL 6.25 MG (COREG) TAB PO SCH ×2 (08:26→20:08)
[2017-09-01] MEDS: DOCUSATE SODIUM 100 MG (COLACE) CAP PO SCH ×2 (08:26→20:07)
[2017-09-01] MEDS: DILTIAZEM 30 MG (CARDIZEM) TAB PO SCH ×3 (08:26→20:08)
[2017-09-01] MEDS: CHLORHEXIDINE 0.12% SOLN 15 ML (PERIDEX) UDC PO SCH ×2 (08:29→20:07)
[2017-09-01] MEDS: ALFUZOSIN HCL 10 MG TAB (UROXATRAL) PO SCH (08:29)
[2017-09-01] MEDS: cloNIDine 0.1 MG (CATAPRES) TAB PO SCH ×2 (08:29→20:08)
[2017-09-01] MEDS: FINASTERIDE (PROSCAR) 5 MG TAB PO SCH (08:29)
[2017-09-01] MEDS: ARTIFICAL TEARS 0.4 ML UNIT DOSE (REFRESH PLUS) OU SCH ×4 (08:30→20:07)
[2017-09-01] MEDS: inSUlin DETERMIR 1 UNIT/0.01 ML (LEVEMIR) CHARGE PER UNIT SQ SCH (08:31)
--- NOTE | 2017-09-01 10:26 | Speech Therapy Daily Note ---
Speech Daily Progress Note Subjective Date Seen by Provider: Sep 01, 2017 Time Seen by Provider: 09:30 The patient was seated in recliner upon entrance. The patient greeted the clinician appropriately and was agreeable to participation in the cognitive treatment session. Objective Orientation: The patient continues to require moderate to maximum verbal prompting from the clinician to recall and identify simple orientation tasks including month, day of week, location, and year. The patient did independently gaze towards the in-room white board for orientation information. He was able to locate the year on the white board on one of two occasions. At the close of the session, the patient was able to independently recall the month and year. JASMIN (Assessment of Language Related Functional Activities): The patient was asked to complete functional tasks on this date with the below results: - Daily Math Problems: The patient was presented normal, daily math problems such as calculating a tip, addition of bills, addition of time, etc. The patient displayed 60% accuracy with the problems provided. Accuracy was not increased with moderate clinician cueing. Assessment Assessment Current Status: Fair Progress Treatment Plan Continue Plan of Care Communication Comprehension: 3 Expression: 3 Social Cognition Social Interaction: 3 Problem Solvin Memory: 2 Speech Short Term Goals Short Term Goals Short Term Goals 1. The patient will recall and demonstrate three functional memory strategies for use at home. 2. The patient will complete functional ADL tasks (clock reading, check writing , etc) with 80% accuracy and mild clinician cueing. 3. The patient will accurately sequence ADL activities with 80% accuracy, independently. 4. The patient will complete structured word-finding tasks with 80% accuracy and mild clinician cueing. Time Frame-STG: One Week Speech Custodial Goals Custodial Goals 1. The patient will display improved cognitive linguistic skills for increased function and safety with ADL's in the least restrictive setting. Time Frame: Two Weeks Comprehension: 4 Expression: 5 Social Interaction: 5 Problem Solvin Memory: 4 Speech-Plan Treatment Plan Speech Therapy Treatment Plan: Continue Plan of Care Continue skilled speech pathology to target functional problem solving and safety. Treatment Duration: Sep 05, 2017 Frequency: Modified Program (IRF) (Three to Five Times Per Week) Estimated Hrs Per Day: .5 hour per day Rehab Potential: Fair Safety Risks/Education Teaching Recipient: Patient Teaching Methods: Demonstration, Discussion Response to Teaching: Verbalize Understanding, Return Demonstration, Reinforcement Needed Education Topics Provided: External Orientation Strategies Time Speech Therapy Time In: 09:30 Speech Therapy Time Out: 10:00 Total Billed Time: 30 Billed Treatment Time 1, NURIA ALONSO Sep 01, 2017 10:26
[2017-09-01] MEDS ORDERED: RT-ALBUTEROL/IPRATROPIUM 3 ML (DUONEB) VIAL INH PRN (10:45)
--- NOTE | 2017-09-01 11:32 | Occupational Ther Daily Note ---
OT Current Status-Daily Note Subjective Pt in bed at beginning of tx. Agreeable to therapy. No mention of pain. Appearance Alert, cooperative. Mental Status/Objective Functional [place] Measure 0=Not Assessed/NA 4=Minimal Assistance 1=Total Assistance 5=Supervision or Setup 2=Maximal Assistance 6=Modified [place] 3=Moderate Assistance 7=Complete [place] ADL-Treatment Pt transferred supine to sit with SBA, sit to stand with CGA and FWW, walked to bathroom with SBA and FWW. Functional [place] Measure 0=Not Assessed/NA 4=Minimal Assistance 1=Total Assistance 5=Supervision or Setup 2=Maximal Assistance 6=Modified [place] 3=Moderate Assistance 7=Complete IndependenceIRFPAI Quality Coding Scale 6 Independent with activity with or without an assistive device 5 Patient requires set up or clean up by helper. Patient completes activity by themselves 4 Supervision or touching assist (CGA). [place] provide cues , steadying assist 3 The helper provides less than half the effort to complete the activity 2 The helper provides more than half the effort to complete the activity 1 Dependent. The helper does all the effort to complete an activity 7 Patient refused to complete or attempt activity 9 The patient did not perform the activity before the current illness or injury 88 Not attempted due to Medical conditions or safety concerns Grooming (FIM): 5 (Pt able to brush dentures and place in mouth with no verbal cues or assist. ) Bathing (FIM): 4 (Pt washed 9 parts with SBA and verbal cues, chose not to wash bottom. Needed assist to use hand held shower. Pt did wash head and face 3 times. Shower bench, grab bars, hand held shower.) Upper Body (FIM): 3 (Pt able to don and doff pullover shirt with some assist, pt effort doff: 60%, don: 60%. ) Lower Body Dressing (FIM): 3 (Pt able to thread one leg in underwear and pants , stood with CGA but able to manage clothing, started both socks, donned shoes but couldn't tie them. Needs assistance to thread catheter bag and pt has some confusion regarding catheter (what it is for and where it is supposed to be). ) Toileting (FIM): 4 (Pt completed 75% of hygiene, able to manage clothing with SBA for standing. BSC, grab bars, FWW) Toilet/Commode Transfer (FIM): 5 (Pt able to transfer to BSC with SBA. Grab bars, BSC, FWW) Shower Transfer(FIM): 5 (Pt able to transfer to shower bench with SBA and verbal cues for FWW placement. FWW, grab bars, shower bench. ) Still come confusion, pt needed reminded to pull up pants after toileting. Also continues to need reminders to push up when standing and reach back when sitting. Pt finished in bathroom and walked to recliner, FWW and SBA. Pt in recliner, chair alarm on, all needs met at end of tx. Education OT Patient Education: Purpose of tx/functional activities, Safety issues, Transfer techniques Teaching Recipient: Patient Teaching Methods: Demonstration, Discussion Response to Teaching: Verbalize Understanding, Return Demonstration, Reinforcement Needed OT Short Term Goals Short Term Goals Time Frame: Sep 05, 2017 Eating(FIM): 5 Grooming(FIM): 5 Toileting(FIM): 3 Toilet/Commode Transfer(FIM): 4 Additional Short Term Goals: 1-Demonstrate ADL Tasks, 2-Verbalize Understanding , 3-ImproveStrength/Harmony 1=Demonstrate adherence to instructed precautions during ADL tasks. 2=Patient will verbalize/demonstrate understanding of assistive devices/ modifications for ADL. 3=Patient will improve strength/tolerance for activity to enable patient to perform ADL's. OT Mcc Goals Manager Human Capital Goals Time Frame: Sep 26, 2017 Eating (FIM): 6 Eating (QC): 6 Groomin Oral Hygiene (QC): 6 Bathing(FIM): 5 Shower/Bathe Self (QC): 5 Upper Body Dressing(FIM): 6 Upper Body Dressing (QC): 6 Lower Body Dressing(FIM): 6 Lower Body Dressing (QC): 6 On/Off Footwear (QC): 6 Toileting(FIM): 6 Toileting Hygiene (QC): 6 Toilet/Commode Transfer(FIM): 6 Toilet/Commode Transfer (QC): 6 Shower Transfer(FIM): 5 Comprehension(FIM): 4 Expression (FIM): 5 Social Interaction(FIM): 5 Problem Solving(FIM): 4 Memory(FIM): 4 Additional Goals: 1-Demonstrate ADL Tasks, 2-Verbalize Understanding, 3- ImproveStrength/Harmony 1=Demonstrate adherence to instructed precautions during ADL tasks. 2=Patient will verbalize/demonstrate understanding of assistive devices/ modifications for ADL. 3=Patient will improve strength/tolerance for activity to enable patient to perform ADL's. OT Education/Plan Problem List/Assessment Pt would benefit from skilled OT to increase his independence in basic self care to allow him to safely return to his home or other appropriate placement and to decrease caregiver burden. Discharge Recommendations Plan/Recommendations: Continue POC Treatment Plan/Plan of Care Patient would benefit from OT for education, treatment and training to promote independence in ADL's, mobility, safety and/or upper extremity function for ADL' s. Plan of Care: ADL Retraining, Functional Mobility, Group Exercise/Act as Ind ( educ, exercise, memory, socialization, funct activity, problem solving) Treatment Duration: Sep 26, 2017 Frequency: At least 5 of 7 days/Wk (IRF) Estimated Hrs Per Day: 1.5 hours per day (1.25 to 1.5 hours) Agreement: Yes Rehab Potential: Fair Time/GCodes Start Time: 08:30 Stop Time: 09:18 Total Time Billed (hr/min): 48 Billed Treatment Time visit, ADL 48 minutes SCHUYLER ALVARADO OT Sep 01, 2017 11:31
--- NOTE | 2017-09-01 11:58 | Physical Therapy Daily Note ---
PT Daily Note-Current Subjective Patient in recliner pre tx, agrees to PT, has no complaints of pain. Appearance Patient in recliner post tx with nurse call, phone, tray, chair alarm on, all needs met. Mental Status Patient Orientation: Person, Situation Attachments: Winters Catheter Transfers Functional [place] Measure 0=Not Assessed/NA 4=Minimal Assistance 1=Total Assistance 5=Supervision or Setup 2=Maximal Assistance 6=Modified [place] 3=Moderate Assistance 7=Complete IndependenceIRFPAI Quality Coding Scale 6 Independent with activity with or without an assistive device 5 Patient requires set up or clean up by helper. Patient completes activity by themselves 4 Supervision or touching assist (CGA). [place] provide cues , steadying assist 3 The helper provides less than half the effort to complete the activity 2 The helper provides more than half the effort to complete the activity 1 Dependent. The helper does all the effort to complete an activity 7 Patient refused to complete or attempt activity 9 The patient did not perform the activity before the current illness or injury 88 Not attempted due to Medical conditions or safety concerns Transfers (B, C, W/C) (FIM): 5 Sit to/from Stand: 5 occasional cues for hand placement Weight Bearing Right Lower Extremity: Right Full Weight Bearing Left Lower Extremity: Left Full Weight Bearing Gait Training Gait (FIM): 5 Distance: 200'x2 Gait Level of Assist: 5 Gait Persons Needed: 1 Gait Assistive Device: FWW slow ambulation, needs occasional cues for direction and to stay on task Stair Training Stair Training: Handrails/: 2 handrails Stairs (FIM): 2 #of Steps: 8 Stairs: Pattern: Step to Level of Assist: 4 CGA, patient has a lot of trouble performing step-to pattern Exercises Standing: Hip Abduction, Hamstring curls, Heel/toe raises, Marching, Mini squats Standing Reps: 20 LAQ alternating for 5 min NuStep Minutes: 15 NuStep Workload: 6 Treatments transfers, ambulation, functional strengthening, stair training Assessment Current Status: Fair Progress improving endurance, still confused PT Fci Goals Cotton Picker Goals PT Cotton Picker Goals Time Frame: Sep 26, 2017 Transfers (B,C,W/C) (FIM): 6 Sit to Lying (QC): 6 Lying-Sitting on Side/Bed(QC): 6 Sit to Stand (QC): 6 Rollin Roll Left to Right (QC): 6 Chair/Gei-fz-Fmsbb Xfer(QC): 6 Car Transfer (QC): 6 Does the Patient Walk: Yes Gait (FIM): 6 Gait distance (FIM): 3=150 ft Distance: >300' Walk 10 feet (QC): 6 Walk 10ft-Uneven Surface(QC): 6 Walk 50ft with 2 Turns (QC): 6 Walk 150 ft (QC): 6 Gait Level of Assist: 6 Gait Assistive Device: FWW Stairs (FIM): 5 # of Steps: 12 1 Step (curb) (QC): 5 4 Steps (QC): 5 12 Steps (QC): 5 Stairs Level Of Assist: 5 Picking up an Object (QC): 5 PT Plan Problem List Problem List: Activity Tolerance, Functional Strength, Safety, Balance, Gait, Transfer, Bed Mobility Treatment/Plan Treatment Plan: Continue Plan of Care Treatment Plan: Bed Mobility, Education, Functional Activity Harmony, Functional Strength, Group Therapy, Gait, Safety, Therapeutic Exercise, Transfers Treatment Duration: Sep 26, 2017 Frequency: At least 5 of 7 days/Wk (IRF) Estimated Hrs Per Day: 1.5 hours per day Patient and/or Family Agrees t: Yes Safety Risks/Education Patient Education: Gait Training, Transfer Techniques, Steps, Correct Positioning, Safety Issues Teaching Recipient: Patient Teaching Methods: Demonstration, Discussion Response to Teaching: Reinforcement Needed Time/GCodes Time In: 1055 Time Out: 1157 Total Billed Treatment Time: 62 Total Billed Treatment 1 visit EX 30' GT 32' FREDY STANLEY PT Sep 01, 2017 11:58
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
--- NOTE | 2017-09-01 16:23 | Occupational Ther Daily Note ---
OT Current Status-Daily Note Subjective Pt in recliner at beginning of tx. Agreeable to therapy. No mention of pain. Mental Status/Objective Functional [place] Measure 0=Not Assessed/NA 4=Minimal Assistance 1=Total Assistance 5=Supervision or Setup 2=Maximal Assistance 6=Modified [place] 3=Moderate Assistance 7=Complete [place] ADL-Treatment Pt needed two tries to stand from walker as he was confused about where the catheter tube should be and lost balance trying to adjust it while standing. Pt walked to bathroom with FWW and SBA and stated he needed to use the toilet but wasn't successful in having a bm. He reported sensation of needing to urinate and didn't recall use of catheter. Cues needed to pull pants up after toileting Functional [place] Measure 0=Not Assessed/NA 4=Minimal Assistance 1=Total Assistance 5=Supervision or Setup 2=Maximal Assistance 6=Modified [place] 3=Moderate Assistance 7=Complete IndependenceIRFPAI Quality Coding Scale 6 Independent with activity with or without an assistive device 5 Patient requires set up or clean up by helper. Patient completes activity by themselves 4 Supervision or touching assist (CGA). [place] provide cues , steadying assist 3 The helper provides less than half the effort to complete the activity 2 The helper provides more than half the effort to complete the activity 1 Dependent. The helper does all the effort to complete an activity 7 Patient refused to complete or attempt activity 9 The patient did not perform the activity before the current illness or injury 88 Not attempted due to Medical conditions or safety concerns Toilet/Commode Transfer (FIM): 5 (SBA, tall toilet, grab bar, FWW) Other Treatment Pt walked to gym with FWW and SBA and did stretching exercises on L UE to increase ROM for ADLs. Pt continues to need cues to reach back when standing and sitting. Pt walked back to room with FWW and SBA. Pt was in recliner, with all needs met, chair alarm on at end of tx. Education OT Patient Education: Correct positioning, Purpose of tx/functional activities , Transfer techniques Teaching Recipient: Patient Teaching Methods: Demonstration, Discussion Response to Teaching: Verbalize Understanding, Return Demonstration, Reinforcement Needed OT Short Term Goals Short Term Goals Time Frame: Sep 05, 2017 Eating(FIM): 5 Grooming(FIM): 5 Toileting(FIM): 3 Toilet/Commode Transfer(FIM): 4 Additional Short Term Goals: 1-Demonstrate ADL Tasks, 2-Verbalize Understanding , 3-ImproveStrength/Harmony 1=Demonstrate adherence to instructed precautions during ADL tasks. 2=Patient will verbalize/demonstrate understanding of assistive devices/ modifications for ADL. 3=Patient will improve strength/tolerance for activity to enable patient to perform ADL's. OT Intermediate Goals Pricing Coordinator Goals Time Frame: Sep 26, 2017 Eating (FIM): 6 Eating (QC): 6 Groomin Oral Hygiene (QC): 6 Bathing(FIM): 5 Shower/Bathe Self (QC): 5 Upper Body Dressing(FIM): 6 Upper Body Dressing (QC): 6 Lower Body Dressing(FIM): 6 Lower Body Dressing (QC): 6 On/Off Footwear (QC): 6 Toileting(FIM): 6 Toileting Hygiene (QC): 6 Toilet/Commode Transfer(FIM): 6 Toilet/Commode Transfer (QC): 6 Shower Transfer(FIM): 5 Comprehension(FIM): 4 Expression (FIM): 5 Social Interaction(FIM): 5 Problem Solving(FIM): 4 Memory(FIM): 4 Additional Goals: 1-Demonstrate ADL Tasks, 2-Verbalize Understanding, 3- ImproveStrength/Harmony 1=Demonstrate adherence to instructed precautions during ADL tasks. 2=Patient will verbalize/demonstrate understanding of assistive devices/ modifications for ADL. 3=Patient will improve strength/tolerance for activity to enable patient to perform ADL's. OT Education/Plan Problem List/Assessment Pt would benefit from skilled OT to increase his independence in basic self care to allow him to safely return to his home or other appropriate placement and to decrease caregiver burden. Discharge Recommendations Plan/Recommendations: Continue POC Treatment Plan/Plan of Care Patient would benefit from OT for education, treatment and training to promote independence in ADL's, mobility, safety and/or upper extremity function for ADL' s. Plan of Care: ADL Retraining, Functional Mobility, Group Exercise/Act as Ind ( educ, exercise, memory, socialization, funct activity, problem solving) Treatment Duration: Sep 26, 2017 Frequency: At least 5 of 7 days/Wk (IRF) Estimated Hrs Per Day: 1.5 hours per day (1.25 to 1.5 hours) Agreement: Yes Rehab Potential: Fair Time/GCodes Start Time: 12:45 Stop Time: 13:15 Total Time Billed (hr/min): 30 Billed Treatment Time visit, ADL 20 minutes, exercise 10 minutes SCHUYLER ALVARADO OT Sep 01, 2017 16:23
[2017-09-01] MEDS: ACETAMINOPHEN 500 MG TAB (TYLENOL) PO PRN (16:30)
[2017-09-01 16:31] VITALS: BP 107/62
[2017-09-02 05:11] VITALS: BP 104/63
[2017-09-02] MEDS: NYSTATIN ORAL SUSP 5 ML UDC PO SCH ×3 (06:02→17:54)
[2017-09-02] MEDS: THIAMINE 100 MG (VITAMIN B-1) TAB PO SCH (06:04)
[2017-09-02] MEDS: inSUlin ASPART (NovoLOG) 1 UNIT/0.01 ML (CHARGE PER UNIT) SC SCH ×4 (06:34→21:04)
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
[2017-09-02] MEDS: CHLORHEXIDINE 0.12% SOLN 15 ML (PERIDEX) UDC PO SCH ×2 (08:37→21:04)
[2017-09-02] MEDS: ALFUZOSIN HCL 10 MG TAB (UROXATRAL) PO SCH (08:37)
[2017-09-02] MEDS: DILTIAZEM 30 MG (CARDIZEM) TAB PO SCH ×3 (08:37→21:05)
[2017-09-02] MEDS: CARVEDILOL 6.25 MG (COREG) TAB PO SCH ×2 (08:37→21:05)
[2017-09-02] MEDS: cloNIDine 0.1 MG (CATAPRES) TAB PO SCH ×2 (08:38→21:05)
[2017-09-02] MEDS: DOCUSATE SODIUM 100 MG (COLACE) CAP PO SCH ×2 (08:38→21:05)
[2017-09-02] MEDS: inSUlin DETERMIR 1 UNIT/0.01 ML (LEVEMIR) CHARGE PER UNIT SQ SCH (08:38)
[2017-09-02] MEDS: FINASTERIDE (PROSCAR) 5 MG TAB PO SCH (08:38)
[2017-09-02] MEDS: CIPROFLOXACIN 500 MG (CIPRO) TABLET PO SCH ×2 (08:38→21:05)
[2017-09-02] MEDS: ARTIFICAL TEARS 0.4 ML UNIT DOSE (REFRESH PLUS) OU SCH ×4 (08:39→21:07)
--- NOTE | 2017-09-02 10:00 | Physical Therapy Daily Note ---
PT Daily Note-Current Subjective Patient in recliner pre tx, agrees to PT, has no complaints of pain but has pain in his left hand with ambulation using the walker. Appearance Patient in recliner post tx with nurse call, phone, tray, chair alarm on, breakfast. Mental Status Patient Orientation: Person, Situation Attachments: Winters Catheter Transfers Functional [place] Measure 0=Not Assessed/NA 4=Minimal Assistance 1=Total Assistance 5=Supervision or Setup 2=Maximal Assistance 6=Modified [place] 3=Moderate Assistance 7=Complete IndependenceIRFPAI Quality Coding Scale 6 Independent with activity with or without an assistive device 5 Patient requires set up or clean up by helper. Patient completes activity by themselves 4 Supervision or touching assist (CGA). [place] provide cues , steadying assist 3 The helper provides less than half the effort to complete the activity 2 The helper provides more than half the effort to complete the activity 1 Dependent. The helper does all the effort to complete an activity 7 Patient refused to complete or attempt activity 9 The patient did not perform the activity before the current illness or injury 88 Not attempted due to Medical conditions or safety concerns Transfers (B, C, W/C) (FIM): 5 Sit to/from Stand: 5 cues for safety and hand placement Weight Bearing Right Lower Extremity: Right Full Weight Bearing Left Lower Extremity: Left Full Weight Bearing Gait Training Gait (FIM): 5 Distance: 250'x2 Gait Level of Assist: 5 Gait Persons Needed: 1 Gait Assistive Device: FWW Patient ambulates slowly, needs cues for direction and to stay on task. Exercises NuStep Minutes: 15 NuStep Workload: 6 Treatments transfers, ambulation, functional strengthening to improve endurance and LE strength Assessment Current Status: Fair Progress improving endurance and strength PT Intermediate Goals Intermediate Goals PT Intermediate Goals Time Frame: Sep 26, 2017 Transfers (B,C,W/C) (FIM): 6 Sit to Lying (QC): 6 Lying-Sitting on Side/Bed(QC): 6 Sit to Stand (QC): 6 Rollin Roll Left to Right (QC): 6 Chair/Nlo-xk-Irjrr Xfer(QC): 6 Car Transfer (QC): 6 Does the Patient Walk: Yes Gait (FIM): 6 Gait distance (FIM): 3=150 ft Distance: >300' Walk 10 feet (QC): 6 Walk 10ft-Uneven Surface(QC): 6 Walk 50ft with 2 Turns (QC): 6 Walk 150 ft (QC): 6 Gait Level of Assist: 6 Gait Assistive Device: FWW Stairs (FIM): 5 # of Steps: 12 1 Step (curb) (QC): 5 4 Steps (QC): 5 12 Steps (QC): 5 Stairs Level Of Assist: 5 Picking up an Object (QC): 5 PT Plan Problem List Problem List: Activity Tolerance, Functional Strength, Safety, Balance, Gait, Transfer, Bed Mobility Treatment/Plan Treatment Plan: Continue Plan of Care Treatment Plan: Bed Mobility, Education, Functional Activity Harmony, Functional Strength, Group Therapy, Gait, Safety, Therapeutic Exercise, Transfers Treatment Duration: Sep 26, 2017 Frequency: At least 5 of 7 days/Wk (IRF) Estimated Hrs Per Day: 1.5 hours per day Patient and/or Family Agrees t: Yes Safety Risks/Education Patient Education: Gait Training, Transfer Techniques, Correct Positioning, Safety Issues Teaching Recipient: Patient Teaching Methods: Demonstration, Discussion Response to Teaching: Reinforcement Needed Time/GCodes Time In: 915 Time Out: 1000 Total Billed Treatment Time: 45 Total Billed Treatment 1 visit EX 15' GT 30' FREDY STANLEY PT Sep 02, 2017 10:00
--- NOTE | 2017-09-02 11:15 | Occupational Ther Daily Note ---
OT Current Status-Daily Note Subjective Pt in bed at beginning of tx. Agreeable to therapy. No mention of pain. Appearance Alert, cooperative. Mental Status/Objective Functional [place] Measure 0=Not Assessed/NA 4=Minimal Assistance 1=Total Assistance 5=Supervision or Setup 2=Maximal Assistance 6=Modified [place] 3=Moderate Assistance 7=Complete [place] ADL-Treatment Pt walked to bathroom with FWW and SBA. Functional [place] Measure 0=Not Assessed/NA 4=Minimal Assistance 1=Total Assistance 5=Supervision or Setup 2=Maximal Assistance 6=Modified [place] 3=Moderate Assistance 7=Complete IndependenceIRFPAI Quality Coding Scale 6 Independent with activity with or without an assistive device 5 Patient requires set up or clean up by helper. Patient completes activity by themselves 4 Supervision or touching assist (CGA). [place] provide cues , steadying assist 3 The helper provides less than half the effort to complete the activity 2 The helper provides more than half the effort to complete the activity 1 Dependent. The helper does all the effort to complete an activity 7 Patient refused to complete or attempt activity 9 The patient did not perform the activity before the current illness or injury 88 Not attempted due to Medical conditions or safety concerns Grooming (FIM): 4 (Pt soaked, rinsed, and replaced dentures, needing help to open denture furniture cleaner packet. Pt washed hands and face while sponge bathing. ) Bathing (FIM): 4 (Pt sponge bathed while sitting on shower bench, needing verbal cues to wash parts and still didn't wash bottom. Shower bench, grab bars , FWW, set up. ) Bathing Location: L Arm, R Arm, L Upper Leg, R Upper Leg, L Lower Leg ( including foot), R Lower Leg (including foot), Chest, Abdomen, Perineal Area Upper Body (FIM): 4 (Pt doffed and donned pullover shirt, needing assist to find head hole. ) Lower Body Dressing (FIM): 3 (Pt needs catheter bag threaded through clothes but once that is done, needs min assist to thread feet into clothes and SBA to manage clothing. Pt couldn't reach to don socks, could don shoes but couldn't tie them. FWW, grab bars) Shower Transfer(FIM): 5 (Needs verbal cues on FWW placement to transfer to shower bench but able to do so with SBA. FWW, grab bars, shower bench) Pt walked to recliner with FWW and SBA. Pt able to remember to reach back when sitting and push up when standing approximately 75% of time (improvement from 50 %). Pt in recliner, chair alarm on and all needs met at end of tx. Education OT Patient Education: Modified ADL techniques, Purpose of tx/functional activities, Safety issues, Transfer techniques Teaching Recipient: Patient Teaching Methods: Demonstration, Discussion Response to Teaching: Verbalize Understanding, Return Demonstration, Reinforcement Needed OT Short Term Goals Short Term Goals Time Frame: Sep 05, 2017 Eating(FIM): 5 Grooming(FIM): 5 Toileting(FIM): 3 Toilet/Commode Transfer(FIM): 4 Additional Short Term Goals: 1-Demonstrate ADL Tasks, 2-Verbalize Understanding , 3-ImproveStrength/Harmony 1=Demonstrate adherence to instructed precautions during ADL tasks. 2=Patient will verbalize/demonstrate understanding of assistive devices/ modifications for ADL. 3=Patient will improve strength/tolerance for activity to enable patient to perform ADL's. OT Intermediate Goals Medical Management Specialist Goals Time Frame: Sep 26, 2017 Eating (FIM): 6 Eating (QC): 6 Groomin Oral Hygiene (QC): 6 Bathing(FIM): 5 Shower/Bathe Self (QC): 5 Upper Body Dressing(FIM): 6 Upper Body Dressing (QC): 6 Lower Body Dressing(FIM): 6 Lower Body Dressing (QC): 6 On/Off Footwear (QC): 6 Toileting(FIM): 6 Toileting Hygiene (QC): 6 Toilet/Commode Transfer(FIM): 6 Toilet/Commode Transfer (QC): 6 Shower Transfer(FIM): 5 Comprehension(FIM): 4 Expression (FIM): 5 Social Interaction(FIM): 5 Problem Solving(FIM): 4 Memory(FIM): 4 Additional Goals: 1-Demonstrate ADL Tasks, 2-Verbalize Understanding, 3- ImproveStrength/Harmony 1=Demonstrate adherence to instructed precautions during ADL tasks. 2=Patient will verbalize/demonstrate understanding of assistive devices/ modifications for ADL. 3=Patient will improve strength/tolerance for activity to enable patient to perform ADL's. OT Education/Plan Problem List/Assessment Pt would benefit from skilled OT to increase his independence in basic self care to allow him to safely return to his home or other appropriate placement and to decrease caregiver burden. Discharge Recommendations Plan/Recommendations: Continue POC Treatment Plan/Plan of Care Patient would benefit from OT for education, treatment and training to promote independence in ADL's, mobility, safety and/or upper extremity function for ADL' s. Plan of Care: ADL Retraining, Functional Mobility, Group Exercise/Act as Ind ( educ, exercise, memory, socialization, funct activity, problem solving) Treatment Duration: Sep 26, 2017 Frequency: At least 5 of 7 days/Wk (IRF) Estimated Hrs Per Day: 1.5 hours per day (1.25 to 1.5 hours) Agreement: Yes Rehab Potential: Fair Time/GCodes Start Time: 08:30 Stop Time: 09:15 Total Time Billed (hr/min): 45 Billed Treatment Time visit, ADL 45 minutes SCHUYLER ALVARADO OT Sep 02, 2017 11:15
--- NOTE | 2017-09-02 11:56 | Speech Therapy Daily Note ---
Speech Daily Progress Note Subjective Date Seen by Provider: Sep 02, 2017 Time Seen by Provider: 10:00 The patient was seated upright in recliner, eating breakfast, upon entrance. The patient greeted the clinician appropriately and was agreeable to participation in the cognitive treatment session. Objective Orientation: The patient displayed improved orientation on this date, independently. The patient was able to independently locate orientation information on the white-board (external aid) and answer orientation questions correctly (month, day of week, date, and year). External Memory Strategies: External memory strategies were discussed on this date and reviewed with the patient. The patient continuously stated, "I don't know" when asked about specific strategies he uses at home (calendars, writing information down, etc.). The clinician reviewed purchasing a calendar and placing it in a familiar place in the house to record important dates and appointments. Additionally, he was encouraged to use a pill box for daily medication, as well as, follow a routine to aid in his memory. Assessment Assessment Current Status: Fair Progress Treatment Plan Continue Plan of Care Communication Comprehension: 2 Expression: 2 Social Cognition Social Interaction: 2 Problem Solvin Memory: 1 Speech Short Term Goals Short Term Goals Short Term Goals 1. The patient will recall and demonstrate three functional memory strategies for use at home. 2. The patient will complete functional ADL tasks (clock reading, check writing , etc) with 80% accuracy and mild clinician cueing. 3. The patient will accurately sequence ADL activities with 80% accuracy, independently. 4. The patient will complete structured word-finding tasks with 80% accuracy and mild clinician cueing. Time Frame-STG: One Week Speech Halfway Goals Halfway Goals 1. The patient will display improved cognitive linguistic skills for increased function and safety with ADL's in the least restrictive setting. Time Frame: Two Weeks Comprehension: 4 Expression: 5 Social Interaction: 5 Problem Solvin Memory: 4 Speech-Plan Treatment Plan Speech Therapy Treatment Plan: Continue Plan of Care Continue skilled speech pathology to target functional problem solving and memory strategies. Treatment Duration: Sep 05, 2017 Frequency: Modified Program (IRF) (Three to Five Times Per Week) Estimated Hrs Per Day: .5 hour per day Rehab Potential: Fair Safety Risks/Education Teaching Recipient: Patient Teaching Methods: Demonstration, Discussion Response to Teaching: Reinforcement Needed Education Topics Provided: Memory and Orientation Strategies Time Speech Therapy Time In: 10:00 Speech Therapy Time Out: 10:30 Total Billed Time: 30 Billed Treatment Time 1, SHYAMKELLI MONIEDONNURIA ST Sep 02, 2017 11:56
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
--- NOTE | 2017-09-02 12:54 | Occupational Ther Daily Note ---
OT Current Status-Daily Note Subjective Pt in recliner at beginning of tx. Agreeable to therapy. No mention of pain. Appearance Alert, cooperative. Mental Status/Objective Functional [place] Measure 0=Not Assessed/NA 4=Minimal Assistance 1=Total Assistance 5=Supervision or Setup 2=Maximal Assistance 6=Modified [place] 3=Moderate Assistance 7=Complete [place] ADL-Treatment Functional [place] Measure 0=Not Assessed/NA 4=Minimal Assistance 1=Total Assistance 5=Supervision or Setup 2=Maximal Assistance 6=Modified [place] 3=Moderate Assistance 7=Complete IndependenceIRFPAI Quality Coding Scale 6 Independent with activity with or without an assistive device 5 Patient requires set up or clean up by helper. Patient completes activity by themselves 4 Supervision or touching assist (CGA). [place] provide cues , steadying assist 3 The helper provides less than half the effort to complete the activity 2 The helper provides more than half the effort to complete the activity 1 Dependent. The helper does all the effort to complete an activity 7 Patient refused to complete or attempt activity 9 The patient did not perform the activity before the current illness or injury 88 Not attempted due to Medical conditions or safety concerns Other Treatment Pt attempted to gather laundry to wash clothing but couldn't find clothing. Pt walked to bathroom with FWW and SBA and washed hands and walked to gym with FWW and SBA. Pt completed 9 minutes on the arm bike at 15 kwok to increase activity tolerance for ADLs. Pt walked back to room with FWW and SBA. Pt seated in recliner, chair alarm on and all needs met at end of tx. Education OT Patient Education: Purpose of tx/functional activities, Transfer techniques Teaching Recipient: Patient Teaching Methods: Demonstration, Discussion Response to Teaching: Verbalize Understanding OT Short Term Goals Short Term Goals Time Frame: Sep 05, 2017 Eating(FIM): 5 Grooming(FIM): 5 Toileting(FIM): 3 Toilet/Commode Transfer(FIM): 4 Additional Short Term Goals: 1-Demonstrate ADL Tasks, 2-Verbalize Understanding , 3-ImproveStrength/Harmony 1=Demonstrate adherence to instructed precautions during ADL tasks. 2=Patient will verbalize/demonstrate understanding of assistive devices/ modifications for ADL. 3=Patient will improve strength/tolerance for activity to enable patient to perform ADL's. OT Residential Goals Residential Goals Time Frame: Sep 26, 2017 Eating (FIM): 6 Eating (QC): 6 Groomin Oral Hygiene (QC): 6 Bathing(FIM): 5 Shower/Bathe Self (QC): 5 Upper Body Dressing(FIM): 6 Upper Body Dressing (QC): 6 Lower Body Dressing(FIM): 6 Lower Body Dressing (QC): 6 On/Off Footwear (QC): 6 Toileting(FIM): 6 Toileting Hygiene (QC): 6 Toilet/Commode Transfer(FIM): 6 Toilet/Commode Transfer (QC): 6 Shower Transfer(FIM): 5 Comprehension(FIM): 4 Expression (FIM): 5 Social Interaction(FIM): 5 Problem Solving(FIM): 4 Memory(FIM): 4 Additional Goals: 1-Demonstrate ADL Tasks, 2-Verbalize Understanding, 3- ImproveStrength/Harmony 1=Demonstrate adherence to instructed precautions during ADL tasks. 2=Patient will verbalize/demonstrate understanding of assistive devices/ modifications for ADL. 3=Patient will improve strength/tolerance for activity to enable patient to perform ADL's. OT Education/Plan Problem List/Assessment Pt would benefit from skilled OT to increase his independence in basic self care to allow him to safely return to his home or other appropriate placement and to decrease caregiver burden. Discharge Recommendations Plan/Recommendations: Continue POC Treatment Plan/Plan of Care Patient would benefit from OT for education, treatment and training to promote independence in ADL's, mobility, safety and/or upper extremity function for ADL' s. Plan of Care: ADL Retraining, Functional Mobility, Group Exercise/Act as Ind ( educ, exercise, memory, socialization, funct activity, problem solving) Treatment Duration: Sep 26, 2017 Frequency: At least 5 of 7 days/Wk (IRF) Estimated Hrs Per Day: 1.5 hours per day (1.25 to 1.5 hours) Agreement: Yes Rehab Potential: Fair Time/GCodes Start Time: 11:30 Stop Time: 12:00 Total Time Billed (hr/min): 30 Billed Treatment Time visit, FA 10 minutes, exercise 20 minutes SCHUYLER ALVARADO OT Sep 02, 2017 12:54
--- NOTE | 2017-09-02 13:59 | Physical Therapy Daily Note ---
PT Daily Note-Current Subjective Patient in recliner pre tx, agrees to PT, no complaints of pain. Appearance Patient in recliner post tx with nurse call, phone, tray, chair alarm on. Mental Status Patient Orientation: Person, Situation Attachments: Winters Catheter Transfers Functional [place] Measure 0=Not Assessed/NA 4=Minimal Assistance 1=Total Assistance 5=Supervision or Setup 2=Maximal Assistance 6=Modified [place] 3=Moderate Assistance 7=Complete IndependenceIRFPAI Quality Coding Scale 6 Independent with activity with or without an assistive device 5 Patient requires set up or clean up by helper. Patient completes activity by themselves 4 Supervision or touching assist (CGA). [place] provide cues , steadying assist 3 The helper provides less than half the effort to complete the activity 2 The helper provides more than half the effort to complete the activity 1 Dependent. The helper does all the effort to complete an activity 7 Patient refused to complete or attempt activity 9 The patient did not perform the activity before the current illness or injury 88 Not attempted due to Medical conditions or safety concerns Transfers (B, C, W/C) (FIM): 5 Sit to/from Stand: 5 cues for hand placement Weight Bearing Right Lower Extremity: Right Full Weight Bearing Left Lower Extremity: Left Full Weight Bearing Gait Training Gait (FIM): 5 Distance: 250'x2 Gait Level of Assist: 5 Gait Persons Needed: 1 Gait Assistive Device: FWW Patient ambulates very slowly, no LOB, left hand hurts during ambulation. Treatments transfers, ambulation Assessment Current Status: Fair Progress improving endurance PT Nursery Manager Goals Senior Care Goals PT Nursery Manager Goals Time Frame: Sep 26, 2017 Transfers (B,C,W/C) (FIM): 6 Sit to Lying (QC): 6 Lying-Sitting on Side/Bed(QC): 6 Sit to Stand (QC): 6 Rollin Roll Left to Right (QC): 6 Chair/Njb-ft-Fajza Xfer(QC): 6 Car Transfer (QC): 6 Does the Patient Walk: Yes Gait (FIM): 6 Gait distance (FIM): 3=150 ft Distance: >300' Walk 10 feet (QC): 6 Walk 10ft-Uneven Surface(QC): 6 Walk 50ft with 2 Turns (QC): 6 Walk 150 ft (QC): 6 Gait Level of Assist: 6 Gait Assistive Device: FWW Stairs (FIM): 5 # of Steps: 12 1 Step (curb) (QC): 5 4 Steps (QC): 5 12 Steps (QC): 5 Stairs Level Of Assist: 5 Picking up an Object (QC): 5 PT Plan Problem List Problem List: Activity Tolerance, Functional Strength, Safety, Balance, Gait, Transfer, Bed Mobility Treatment/Plan Treatment Plan: Continue Plan of Care Treatment Plan: Bed Mobility, Education, Functional Activity Harmony, Functional Strength, Group Therapy, Gait, Safety, Therapeutic Exercise, Transfers Treatment Duration: Sep 26, 2017 Frequency: At least 5 of 7 days/Wk (IRF) Estimated Hrs Per Day: 1.5 hours per day Patient and/or Family Agrees t: Yes Safety Risks/Education Patient Education: Gait Training, Transfer Techniques, Correct Positioning, Safety Issues Teaching Recipient: Patient Teaching Methods: Demonstration, Discussion Response to Teaching: Reinforcement Needed Time/GCodes Time In: 1330 Time Out: 1400 Total Billed Treatment Time: 30 Total Billed Treatment 1 visit GT 30' FREDY STANLEY PT Sep 02, 2017 13:59
[2017-09-02] MEDS ORDERED: BETHANECHOL 25 MG (URECHOLINE) TAB PO SCH (16:00)
[2017-09-02] MEDS: BETHANECHOL 25 MG (URECHOLINE) TAB PO SCH ×2 (16:33→21:05)
[2017-09-02 17:41] VITALS: BP 96/60
[2017-09-03] MEDS: NYSTATIN ORAL SUSP 5 ML UDC PO SCH ×4 (00:08→17:53)
[2017-09-03 06:00] VITALS: BP 104/66
[2017-09-03] MEDS: inSUlin ASPART (NovoLOG) 1 UNIT/0.01 ML (CHARGE PER UNIT) SC SCH ×4 (06:31→20:59)
[2017-09-03] MEDS: BETHANECHOL 25 MG (URECHOLINE) TAB PO SCH ×4 (06:31→20:59)
[2017-09-03] MEDS: THIAMINE 100 MG (VITAMIN B-1) TAB PO SCH (06:32)
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
--- NOTE | 2017-09-03 08:24 | PM & R (SOAP) Progress Note ---
Subjective Time Seen by Provider: 08:15 Subjective/Events-last exam Patient was seen in his room this AM Appreciate DR chou note and orders Winters to DD for now until meds have had a chance to take effect.Patient SBA for transfers Review of Systems Genitourinary: Retention Objective Exam Last Set of Vital Signs Vital Signs Date Time Temp Pulse Resp B/P (MAP) Pulse Ox O2 Delivery O2 Flow Rate FiO2 09/03/17 06:00 98.4 83 18 104/66 98 Room Air Capillary Refill : Less Than 3 Seconds I&O Intake and Output 09/04/17 00:00 Intake Total 300 ml Output Total 350 ml Balance -50 ml Intake Oral 100 ml Tube Feeding 200 ml Output Urine Total 350 ml General: Alert, Cooperative, No Acute Distress HEENT: Atraumatic, PERRLA, EOMI, Mucous Memb Moist/[place] Neck: Supple, No JVD Lungs: Clear to Auscultation Heart: Regular Rate Abdomen: Normal Bowel Sounds, Soft, No Tenderness, Other Extremities: No Edema (Strength 4-/5) Other physical findings Winters to DD Results Lab Laboratory Tests 08/31/17 11:33: Glucometer 136H 08/31/17 16:21: Glucometer 100 08/31/17 21:01: Glucometer 106 09/01/17 06:41: Glucometer 88 09/01/17 11:00: Glucometer 100 09/01/17 16:39: Glucometer 105 09/01/17 20:23: Glucometer 116H 09/02/17 06:25: Glucometer 98 09/02/17 10:58: Glucometer 187H 09/02/17 15:42: Glucometer 104 09/02/17 21:03: Glucometer 116H 09/03/17 06:31: Glucometer 97 Assessment/Plan Assessment TBI with encephalopathy -a bit more confused today s/p decannulation S/P PEG on po feeds Frx left elbow s/p repair MRSA in sputum with contact precautions Urinary retention managed with Indwelling Winters catheter for now.-DR zambrano following Plan Continue Pt/OT Obtain records re Imaging studies done at OSH as per above Discussed with RN and DR cyr Consult Dr Zambrano re urinary retention-done See orders Next Team Conference later today-See report for full functional update and POC and WINDY MCCARTY MD Sep 03, 2017 08:24
[2017-09-03] MEDS: FINASTERIDE (PROSCAR) 5 MG TAB PO SCH (08:51)
[2017-09-03] MEDS: CHLORHEXIDINE 0.12% SOLN 15 ML (PERIDEX) UDC PO SCH ×2 (08:51→20:59)
[2017-09-03] MEDS: DILTIAZEM 30 MG (CARDIZEM) TAB PO SCH ×3 (08:51→20:59)
[2017-09-03] MEDS: ALFUZOSIN HCL 10 MG TAB (UROXATRAL) PO SCH (08:51)
[2017-09-03] MEDS: cloNIDine 0.1 MG (CATAPRES) TAB PO SCH ×2 (08:51→20:59)
[2017-09-03] MEDS: CARVEDILOL 6.25 MG (COREG) TAB PO SCH ×2 (08:51→20:59)
[2017-09-03] MEDS: DOCUSATE SODIUM 100 MG (COLACE) CAP PO SCH ×2 (08:51→19:43)
[2017-09-03] MEDS: ARTIFICAL TEARS 0.4 ML UNIT DOSE (REFRESH PLUS) OU SCH ×4 (08:51→20:59)
[2017-09-03] MEDS: CIPROFLOXACIN 500 MG (CIPRO) TABLET PO SCH ×2 (08:51→20:59)
[2017-09-03] MEDS: inSUlin DETERMIR 1 UNIT/0.01 ML (LEVEMIR) CHARGE PER UNIT SQ SCH (08:52)
--- NOTE | 2017-09-03 10:47 | Occupational Ther Daily Note ---
OT Current Status-Daily Note Subjective Pt seen in room, up in bed, agreeable to OT. Pt reported some discomfort in L hand with opening milk carton. Appearance Alert, cooperative Mental Status/Objective Functional [place] Measure 0=Not Assessed/NA 4=Minimal Assistance 1=Total Assistance 5=Supervision or Setup 2=Maximal Assistance 6=Modified [place] 3=Moderate Assistance 7=Complete [place] Attachments: Stein Catheter, PEG Tube ADL-Treatment All ADLs took longer than usual. Functional [place] Measure 0=Not Assessed/NA 4=Minimal Assistance 1=Total Assistance 5=Supervision or Setup 2=Maximal Assistance 6=Modified [place] 3=Moderate Assistance 7=Complete IndependenceIRFPAI Quality Coding Scale 6 Independent with activity with or without an assistive device 5 Patient requires set up or clean up by helper. Patient completes activity by themselves 4 Supervision or touching assist (CGA). [place] provide cues , steadying assist 3 The helper provides less than half the effort to complete the activity 2 The helper provides more than half the effort to complete the activity 1 Dependent. The helper does all the effort to complete an activity 7 Patient refused to complete or attempt activity 9 The patient did not perform the activity before the current illness or injury 88 Not attempted due to Medical conditions or safety concerns Eating (FIM): 5 (Setup needed to open milk carton and cereal plastic bag. Pt was able to prepare cereal, open sugar, feed self ceral, eggs, banana. ) Grooming (FIM): 5 (Pt stood at sink SBA, FWW and rinsed dentures, dried them, applied denture adhesive and put teeth in correctly the first time. ) Upper Body (FIM): 5 (Pt took shirt off and put clean one on with setup, supervision. No difficulty finding correct openings. Stood SBA to pull shirt down.) Lower Body Dressing (FIM): 4 (Help to thread stein bag through pants leg. Able to get feet into pants without other assist and stood SBA to pull pants up. Pt was able to get shoes off and put them back on but not tie them. Said his hand hurt when usings it to tie shoes. Pt agreeable to try elastic shoe laces. They were put in shoes and he was able to put shoes on with supervision. pt educ technique for shoe laces - he tended to untie them. ) Transfers (B, C, W/C) (FIM): 5 (SBA, FWW. Pt recalled hand placement with each transfer) Pt was left sitting up in recliner, chair alarm on, all needs met. Education OT Patient Education: Modified ADL techniques, Progress toward Goal/Update tx plan, Purpose of tx/functional activities, Use of adapted equipment Teaching Recipient: Patient Teaching Methods: Demonstration, Discussion Response to Teaching: Verbalize Understanding, Return Demonstration, Reinforcement Needed OT Short Term Goals Short Term Goals Time Frame: Sep 05, 2017 Eating(FIM): 5 Grooming(FIM): 5 Toileting(FIM): 3 Toilet/Commode Transfer(FIM): 4 Additional Short Term Goals: 1-Demonstrate ADL Tasks, 2-Verbalize Understanding , 3-ImproveStrength/Harmony 1=Demonstrate adherence to instructed precautions during ADL tasks. 2=Patient will verbalize/demonstrate understanding of assistive devices/ modifications for ADL. 3=Patient will improve strength/tolerance for activity to enable patient to perform ADL's. OT [facility] Goals [facility] Goals Time Frame: Sep 26, 2017 Eating (FIM): 6 Eating (QC): 6 Groomin Oral Hygiene (QC): 6 Bathing(FIM): 5 Shower/Bathe Self (QC): 5 Upper Body Dressing(FIM): 6 Upper Body Dressing (QC): 6 Lower Body Dressing(FIM): 6 Lower Body Dressing (QC): 6 On/Off Footwear (QC): 6 Toileting(FIM): 6 Toileting Hygiene (QC): 6 Toilet/Commode Transfer(FIM): 6 Toilet/Commode Transfer (QC): 6 Shower Transfer(FIM): 5 Comprehension(FIM): 4 Expression (FIM): 5 Social Interaction(FIM): 5 Problem Solving(FIM): 4 Memory(FIM): 4 Additional Goals: 1-Demonstrate ADL Tasks, 2-Verbalize Understanding, 3- ImproveStrength/Harmony 1=Demonstrate adherence to instructed precautions during ADL tasks. 2=Patient will verbalize/demonstrate understanding of assistive devices/ modifications for ADL. 3=Patient will improve strength/tolerance for activity to enable patient to perform ADL's. OT Education/Plan Problem List/Assessment Pt would benefit from skilled OT to increase his independence in basic self care to allow him to safely return to his home or other appropriate placement and to decrease caregiver burden. Discharge Recommendations Plan/Recommendations: Continue POC Treatment Plan/Plan of Care Patient would benefit from OT for education, treatment and training to promote independence in ADL's, mobility, safety and/or upper extremity function for ADL' s. Plan of Care: ADL Retraining, Functional Mobility, Group Exercise/Act as Ind ( educ, exercise, memory, socialization, funct activity, problem solving) Treatment Duration: Sep 26, 2017 Frequency: At least 5 of 7 days/Wk (IRF) Estimated Hrs Per Day: 1.5 hours per day (1.25 to 1.5 hours) Agreement: Yes Rehab Potential: Fair Time/GCodes Start Time: 08:30 Stop Time: 09:30 Total Time Billed (hr/min): 60 Billed Treatment Time visit, 60 minutes ADL SCHUYLER ALVARADO OT Sep 03, 2017 10:46
--- NOTE | 2017-09-03 10:58 | Physical Therapy Daily Note ---
PT Daily Note-Current Subjective Pt sitting in recliner upon arrival. Pt agrees to PT. Pain Numeric Pain Scale: 4 Location: Left Location Body Site: Hand Pain Description: Ache, Cramping Mental Status Patient Orientation: Person, Place Attachments: Winters Catheter Transfers Functional [place] Measure 0=Not Assessed/NA 4=Minimal Assistance 1=Total Assistance 5=Supervision or Setup 2=Maximal Assistance 6=Modified [place] 3=Moderate Assistance 7=Complete IndependenceIRFPAI Quality Coding Scale 6 Independent with activity with or without an assistive device 5 Patient requires set up or clean up by helper. Patient completes activity by themselves 4 Supervision or touching assist (CGA). [place] provide cues , steadying assist 3 The helper provides less than half the effort to complete the activity 2 The helper provides more than half the effort to complete the activity 1 Dependent. The helper does all the effort to complete an activity 7 Patient refused to complete or attempt activity 9 The patient did not perform the activity before the current illness or injury 88 Not attempted due to Medical conditions or safety concerns Scootin Sit to/from Stand: 5 Sit to Stand (QC): 5 Weight Bearing Right Lower Extremity: Right Full Weight Bearing Left Lower Extremity: Left Full Weight Bearing Gait Training Does the Patient Walk?: Yes Distance (FIM): 3=150 ft Distance: 200' X2 Walk 10 feet (QC): 5 Walk 50 ft with 2 Turns(QC): 5 Walk 150 ft (QC): 5 Gait Level of Assist: 5 Gait Persons Needed: 1 Gait Assistive Device: FWW Pt walks with slow shuffling gait but steady, no LOB. Pt needs VC for hand placement and sequencing. Wheelchair Training Does the Pt Use a Wheelchair?: No Exercises Seated Therapy Exercises: Ankle pumps, Long arc quads, Hip flexion, Kicking activity, Hip abd/add Seated Reps: 20 NuStep Minutes: 12 NuStep Workload: 6 Treatments Pt transfers from recliner to standing using FWW at close SBA. Pt ambulates in hallway using FWW at close SBA. Pt uses NuStep for 12m at Workload 6 followed by Seated Ex in chair. Pt then returned to room after short walk to rest in recliner at end of tx with all needs met. Assessment Current Status: Good Progress Pt needs VC to stay on task and for sequencing during tx. Pt fatigues easy and needs rest breaks. PT Usp Goals Usp Goals PT Usp Goals Time Frame: Sep 26, 2017 Transfers (B,C,W/C) (FIM): 6 Sit to Lying (QC): 6 Lying-Sitting on Side/Bed(QC): 6 Sit to Stand (QC): 6 Rollin Roll Left to Right (QC): 6 Chair/Ajj-dg-Vryti Xfer(QC): 6 Car Transfer (QC): 6 Does the Patient Walk: Yes Gait (FIM): 6 Gait distance (FIM): 3=150 ft Distance: >300' Walk 10 feet (QC): 6 Walk 10ft-Uneven Surface(QC): 6 Walk 50ft with 2 Turns (QC): 6 Walk 150 ft (QC): 6 Gait Level of Assist: 6 Gait Assistive Device: FWW Stairs (FIM): 5 # of Steps: 12 1 Step (curb) (QC): 5 4 Steps (QC): 5 12 Steps (QC): 5 Stairs Level Of Assist: 5 Picking up an Object (QC): 5 PT Plan Problem List Problem List: Activity Tolerance, Functional Strength, Safety, Balance, Gait Treatment/Plan Treatment Plan: Continue Plan of Care Treatment Plan: Bed Mobility, Education, Functional Activity Harmony, Functional Strength, Group Therapy, Gait, Safety, Therapeutic Exercise, Transfers Treatment Duration: Sep 26, 2017 Frequency: At least 5 of 7 days/Wk (IRF) Estimated Hrs Per Day: 1.5 hours per day Patient and/or Family Agrees t: Yes Safety Risks/Education Patient Education: Gait Training, Transfer Techniques, Correct Positioning, Safety Issues Teaching Recipient: Patient Teaching Methods: Discussion Response to Teaching: Verbalize Understanding Time/GCodes Time In: 930 Time Out: 1030 Total Billed Treatment Time: 60 Total Billed Treatment 1, GT x2 (30m) & EX x2 (30m) MARBELLA CAMARGO MANAGER STERILE PROCESSING Sep 03, 2017 10:58
--- NOTE | 2017-09-03 14:04 | Physical Therapy Daily Note ---
PT Daily Note-Current Subjective Pt sitting in recliner after just returning from OT upon arrival. Pt agrees to PT. Mental Status Patient Orientation: Person, Place Attachments: Winters Catheter Transfers Functional [place] Measure 0=Not Assessed/NA 4=Minimal Assistance 1=Total Assistance 5=Supervision or Setup 2=Maximal Assistance 6=Modified [place] 3=Moderate Assistance 7=Complete IndependenceIRFPAI Quality Coding Scale 6 Independent with activity with or without an assistive device 5 Patient requires set up or clean up by helper. Patient completes activity by themselves 4 Supervision or touching assist (CGA). [place] provide cues , steadying assist 3 The helper provides less than half the effort to complete the activity 2 The helper provides more than half the effort to complete the activity 1 Dependent. The helper does all the effort to complete an activity 7 Patient refused to complete or attempt activity 9 The patient did not perform the activity before the current illness or injury 88 Not attempted due to Medical conditions or safety concerns Weight Bearing Right Lower Extremity: Right Full Weight Bearing Left Lower Extremity: Left Full Weight Bearing Exercises Seated Therapy Exercises: Ankle pumps, Long arc quads, Hip flexion, Kicking activity, Hip abd/add Assessment Current Status: Good Progress Pt needs VC for sequencing. PT Theatrical Trouper Goals Theatrical Trouper Goals PT Usp Goals Time Frame: Sep 26, 2017 Transfers (B,C,W/C) (FIM): 6 Sit to Lying (QC): 6 Lying-Sitting on Side/Bed(QC): 6 Sit to Stand (QC): 6 Rollin Roll Left to Right (QC): 6 Chair/Zqa-ym-Pizhe Xfer(QC): 6 Car Transfer (QC): 6 Does the Patient Walk: Yes Gait (FIM): 6 Gait distance (FIM): 3=150 ft Distance: >300' Walk 10 feet (QC): 6 Walk 10ft-Uneven Surface(QC): 6 Walk 50ft with 2 Turns (QC): 6 Walk 150 ft (QC): 6 Gait Level of Assist: 6 Gait Assistive Device: FWW Stairs (FIM): 5 # of Steps: 12 1 Step (curb) (QC): 5 4 Steps (QC): 5 12 Steps (QC): 5 Stairs Level Of Assist: 5 Picking up an Object (QC): 5 PT Plan Problem List Problem List: Activity Tolerance, Functional Strength, Safety, Balance, Gait, Transfer Treatment/Plan Treatment Plan: Continue Plan of Care Treatment Plan: Bed Mobility, Education, Functional Activity Harmony, Functional Strength, Group Therapy, Gait, Safety, Therapeutic Exercise, Transfers Treatment Duration: Sep 26, 2017 Frequency: At least 5 of 7 days/Wk (IRF) Estimated Hrs Per Day: 1.5 hours per day Patient and/or Family Agrees t: Yes Safety Risks/Education Patient Education: Transfer Techniques, Correct Positioning, Safety Issues Teaching Recipient: Patient Teaching Methods: Discussion Response to Teaching: Reinforcement Needed Time/GCodes Time In: 1330 Time Out: 1400 Total Billed Treatment Time: 30 Total Billed Treatment 1, EX x 2 (30m) MARBELLA CAMARGO TIRE STRIPPER Sep 03, 2017 14:04
[2017-09-03] MEDS ORDERED: MILK OF MAGNESIA 400 MG/5 ML 30 ML UDC PO PRN (15:15)
--- NOTE | 2017-09-03 15:18 | Occupational Ther Daily Note ---
OT Current Status-Daily Note Subjective Pt in recliner at beginning of tx. Agreeable to therapy. No mention of pain. Pt did not recall that his daughter shaved him this morning. Appearance Alert, cooperative. Mental Status/Objective Functional [place] Measure 0=Not Assessed/NA 4=Minimal Assistance 1=Total Assistance 5=Supervision or Setup 2=Maximal Assistance 6=Modified [place] 3=Moderate Assistance 7=Complete [place] ADL-Treatment Functional [place] Measure 0=Not Assessed/NA 4=Minimal Assistance 1=Total Assistance 5=Supervision or Setup 2=Maximal Assistance 6=Modified [place] 3=Moderate Assistance 7=Complete IndependenceIRFPAI Quality Coding Scale 6 Independent with activity with or without an assistive device 5 Patient requires set up or clean up by helper. Patient completes activity by themselves 4 Supervision or touching assist (CGA). [place] provide cues , steadying assist 3 The helper provides less than half the effort to complete the activity 2 The helper provides more than half the effort to complete the activity 1 Dependent. The helper does all the effort to complete an activity 7 Patient refused to complete or attempt activity 9 The patient did not perform the activity before the current illness or injury 88 Not attempted due to Medical conditions or safety concerns Other Treatment Pt walked to gym with FWW and SBA. Did table top activity of 1 inch knob with 1/ 4 inch stem pegs and small pegboard with L hand to increase strength and functional use for improved ADLs. Pt was able to create rows of same color and stack pegs with some verbal cues for matching colors. Pt walked to room with FWW and SBA. Pt in recliner, chair alarm set and all needs met at end of tx. Education OT Patient Education: Purpose of tx/functional activities, Transfer techniques Teaching Recipient: Patient Teaching Methods: Demonstration, Discussion Response to Teaching: Verbalize Understanding, Return Demonstration OT Short Term Goals Short Term Goals Time Frame: Sep 05, 2017 Eating(FIM): 5 Grooming(FIM): 5 Toileting(FIM): 3 Toilet/Commode Transfer(FIM): 4 Additional Short Term Goals: 1-Demonstrate ADL Tasks, 2-Verbalize Understanding , 3-ImproveStrength/Harmony 1=Demonstrate adherence to instructed precautions during ADL tasks. 2=Patient will verbalize/demonstrate understanding of assistive devices/ modifications for ADL. 3=Patient will improve strength/tolerance for activity to enable patient to perform ADL's. OT Retirement Goals [employer]ier[employer] Knitter Goals Time Frame: Sep 26, 2017 Eating (FIM): 6 Eating (QC): 6 Groomin Oral Hygiene (QC): 6 Bathing(FIM): 5 Shower/Bathe Self (QC): 5 Upper Body Dressing(FIM): 6 Upper Body Dressing (QC): 6 Lower Body Dressing(FIM): 6 Lower Body Dressing (QC): 6 On/Off Footwear (QC): 6 Toileting(FIM): 6 Toileting Hygiene (QC): 6 Toilet/Commode Transfer(FIM): 6 Toilet/Commode Transfer (QC): 6 Shower Transfer(FIM): 5 Comprehension(FIM): 4 Expression (FIM): 5 Social Interaction(FIM): 5 Problem Solving(FIM): 4 Memory(FIM): 4 Additional Goals: 1-Demonstrate ADL Tasks, 2-Verbalize Understanding, 3- ImproveStrength/Harmony 1=Demonstrate adherence to instructed precautions during ADL tasks. 2=Patient will verbalize/demonstrate understanding of assistive devices/ modifications for ADL. 3=Patient will improve strength/tolerance for activity to enable patient to perform ADL's. OT Education/Plan Problem List/Assessment Pt would benefit from skilled OT to increase his independence in basic self care to allow him to safely return to his home or other appropriate placement and to decrease caregiver burden. Discharge Recommendations Plan/Recommendations: Continue POC Treatment Plan/Plan of Care Patient would benefit from OT for education, treatment and training to promote independence in ADL's, mobility, safety and/or upper extremity function for ADL' s. Plan of Care: ADL Retraining, Functional Mobility, Group Exercise/Act as Ind ( educ, exercise, memory, socialization, funct activity, problem solving) Treatment Duration: Sep 26, 2017 Frequency: At least 5 of 7 days/Wk (IRF) Estimated Hrs Per Day: 1.5 hours per day (1.25 to 1.5 hours) Agreement: Yes Rehab Potential: Fair Time/GCodes Start Time: 13:00 Stop Time: 13:30 Total Time Billed (hr/min): 30 Billed Treatment Time visit, exercise 30 minutes SCHUYLER ALVARADO OT Sep 03, 2017 15:18
[2017-09-03 18:15] VITALS: BP 100/60
[2017-09-04] MEDS: NYSTATIN ORAL SUSP 5 ML UDC PO SCH ×4 (00:23→16:55)
[2017-09-04] MEDS: inSUlin ASPART (NovoLOG) 1 UNIT/0.01 ML (CHARGE PER UNIT) SC SCH ×4 (05:55→20:52)
[2017-09-04] MEDS: BETHANECHOL 25 MG (URECHOLINE) TAB PO SCH ×4 (05:55→20:54)
[2017-09-04] MEDS: THIAMINE 100 MG (VITAMIN B-1) TAB PO SCH (05:56)
[2017-09-04 06:00] VITALS: BP 108/68
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
--- NOTE | 2017-09-04 08:15 | PM & R (SOAP) Progress Note ---
Subjective Time Seen by Provider: 08:00 Subjective/Events-last exam Patient was seen in his room this AM Patient scheduled for discharge on Friday09-08-17 to home with his daughter. Patient SBA for transfers Objective Exam Last Set of Vital Signs Vital Signs Date Time Temp Pulse Resp B/P (MAP) Pulse Ox O2 Delivery O2 Flow Rate FiO2 09/04/17 07:54 97 Room Air 09/04/17 06:00 98.2 77 20 108/68 Capillary Refill : Less Than 3 Seconds I&O Intake and Output 09/05/17 00:00 Intake Total 425 ml Output Total 300 ml Balance 125 ml Intake Oral 250 ml Tube Feeding 175 ml Output Urine Total 300 ml # Bowel Movements 3 General: Alert, Cooperative, No Acute Distress HEENT: Atraumatic, PERRLA, EOMI, Mucous Memb Moist/[place] Neck: Supple, No JVD Lungs: Clear to Auscultation Heart: Regular Rate Abdomen: Normal Bowel Sounds, Soft, No Tenderness, Other Extremities: No Edema (Strength 4-/5) Results Lab Laboratory Tests 09/01/17 11:00: Glucometer 100 09/01/17 16:39: Glucometer 105 09/01/17 20:23: Glucometer 116H 09/02/17 06:25: Glucometer 98 09/02/17 10:58: Glucometer 187H 09/02/17 15:42: Glucometer 104 09/02/17 21:03: Glucometer 116H 09/03/17 06:31: Glucometer 97 09/03/17 11:26: Glucometer 127H 09/03/17 15:55: Glucometer 95 09/03/17 20:57: Glucometer 111H 09/04/17 05:53: Glucometer 93 Assessment/Plan Assessment TBI with encephalopathy -a bit more confused today s/p decannulation S/P PEG on po feeds Frx left elbow s/p repair MRSA in sputum with contact precautions Urinary retention managed with Indwelling Winters catheter for now.-DR zambrano following Plan Continue Pt/OT Obtain records re Imaging studies done at OSH as per above Discussed with RN and DR cyr Consult Dr Zambrano re urinary retention-done See orders Team Conference held yesterday-See report for full functional update and POC and ELOS Discharge set tentatively for 09-08-17 as per above Hand delivered disc of imaging studies yesterday from OSH to [facility] here for them to compare with our CT WINDY BERKOWITZ MD Sep 04, 2017 08:15
[2017-09-04] MEDS: inSUlin DETERMIR 1 UNIT/0.01 ML (LEVEMIR) CHARGE PER UNIT SQ SCH (08:23)
[2017-09-04] MEDS: ALFUZOSIN HCL 10 MG TAB (UROXATRAL) PO SCH (08:24)
[2017-09-04] MEDS: DOCUSATE SODIUM 100 MG (COLACE) CAP PO SCH ×2 (08:24→20:55)
[2017-09-04] MEDS: FINASTERIDE (PROSCAR) 5 MG TAB PO SCH (08:24)
[2017-09-04] MEDS: CIPROFLOXACIN 500 MG (CIPRO) TABLET PO SCH (08:24)
[2017-09-04] MEDS: DILTIAZEM 30 MG (CARDIZEM) TAB PO SCH ×3 (08:24→20:55)
[2017-09-04] MEDS: CHLORHEXIDINE 0.12% SOLN 15 ML (PERIDEX) UDC PO SCH ×2 (08:24→20:54)
[2017-09-04] MEDS: CARVEDILOL 6.25 MG (COREG) TAB PO SCH ×2 (08:24→20:55)
[2017-09-04] MEDS: ARTIFICAL TEARS 0.4 ML UNIT DOSE (REFRESH PLUS) OU SCH ×4 (08:24→20:55)
[2017-09-04] MEDS: cloNIDine 0.1 MG (CATAPRES) TAB PO SCH ×2 (08:24→20:55)
--- NOTE | 2017-09-04 11:46 | Occupational Ther Daily Note ---
OT Current Status-Daily Note Subjective Pt in bed at beginning of tx. Agreeable to therapy. No mention of pain. Appearance Alert, cooperative. Mental Status/Objective Functional [place] Measure 0=Not Assessed/NA 4=Minimal Assistance 1=Total Assistance 5=Supervision or Setup 2=Maximal Assistance 6=Modified [place] 3=Moderate Assistance 7=Complete [place] ADL-Treatment Pt transferred from supine to sit with min A, EOB to stand with SBA and FWW, then walked to recliner with FWW and SBA. After eating, pt walked from recliner to bathroom with FWW and SBA. Functional [place] Measure 0=Not Assessed/NA 4=Minimal Assistance 1=Total Assistance 5=Supervision or Setup 2=Maximal Assistance 6=Modified [place] 3=Moderate Assistance 7=Complete IndependenceIRFPAI Quality Coding Scale 6 Independent with activity with or without an assistive device 5 Patient requires set up or clean up by helper. Patient completes activity by themselves 4 Supervision or touching assist (CGA). [place] provide cues , steadying assist 3 The helper provides less than half the effort to complete the activity 2 The helper provides more than half the effort to complete the activity 1 Dependent. The helper does all the effort to complete an activity 7 Patient refused to complete or attempt activity 9 The patient did not perform the activity before the current illness or injury 88 Not attempted due to Medical conditions or safety concerns Eating (FIM): 5 (Pt able to cut waffle and open containers and packages but needed help opening milk carton. Pt able to feed self with setup. ) Grooming (FIM): 5 (Pt able to complete soaking and placing dentures with supervision, able to open denture tabs with no assist. Washed hands and face in shower. ) Bathing (FIM): 5 (Pt able to wash all 10 parts with SBA for safety (improved from missing parts). Gets cold quickly while showering but helps to keep shirt on as long as possible and put shirt on as soon as possible. Perseverated on washing head and face, doing so 3 X before moving on, even with verbal cues. Shower bench, grab bars, hand held shower. ) Upper Body (FIM): 5 (Able to doff and don pullover shirt with SBA and setup ( improved from needing assist). ) Lower Body Dressing (FIM): 4 (Able to doff pants and underwear with assist for catheter bag. Able to don pants and underwear with assist to thread catheter bag and assist to thread R leg. SBA and FWW to stand to manage clothing. FWW) Shower Transfer(FIM): 5 (Pt able to transfer on and off shower bench with min verbal cues for FWW placement. FWW, grab bars, shower bench. ) Pt continues to need reminders for hand placement when sitting and standing but remembers approx 75% to time. Pt walked to recliner with FWW and SBA. Pt in recliner, chair alarm set and all needs met at end of tx. Education OT Patient Education: Progress toward Goal/Update tx plan, Purpose of tx/ functional activities, Safety issues, Transfer techniques Teaching Recipient: Patient Teaching Methods: Demonstration, Discussion Response to Teaching: Verbalize Understanding, Return Demonstration, Reinforcement Needed OT Short Term Goals Short Term Goals Time Frame: Sep 05, 2017 Eating(FIM): 5 Grooming(FIM): 5 Toileting(FIM): 3 Toilet/Commode Transfer(FIM): 4 Additional Short Term Goals: 1-Demonstrate ADL Tasks, 2-Verbalize Understanding , 3-ImproveStrength/Harmony 1=Demonstrate adherence to instructed precautions during ADL tasks. 2=Patient will verbalize/demonstrate understanding of assistive devices/ modifications for ADL. 3=Patient will improve strength/tolerance for activity to enable patient to perform ADL's. OT Retirement Goals Files Supervisor Goals Time Frame: Sep 26, 2017 Eating (FIM): 6 Eating (QC): 6 Groomin Oral Hygiene (QC): 6 Bathing(FIM): 5 Shower/Bathe Self (QC): 5 Upper Body Dressing(FIM): 6 Upper Body Dressing (QC): 6 Lower Body Dressing(FIM): 6 Lower Body Dressing (QC): 6 On/Off Footwear (QC): 6 Toileting(FIM): 6 Toileting Hygiene (QC): 6 Toilet/Commode Transfer(FIM): 6 Toilet/Commode Transfer (QC): 6 Shower Transfer(FIM): 5 Comprehension(FIM): 4 Expression (FIM): 5 Social Interaction(FIM): 5 Problem Solving(FIM): 4 Memory(FIM): 4 Additional Goals: 1-Demonstrate ADL Tasks, 2-Verbalize Understanding, 3- ImproveStrength/Harmony 1=Demonstrate adherence to instructed precautions during ADL tasks. 2=Patient will verbalize/demonstrate understanding of assistive devices/ modifications for ADL. 3=Patient will improve strength/tolerance for activity to enable patient to perform ADL's. OT Education/Plan Problem List/Assessment Pt would benefit from skilled OT to increase his independence in basic self care to allow him to safely return to his home or other appropriate placement and to decrease caregiver burden. Discharge Recommendations Plan/Recommendations: Continue POC Treatment Plan/Plan of Care Patient would benefit from OT for education, treatment and training to promote independence in ADL's, mobility, safety and/or upper extremity function for ADL' s. Plan of Care: ADL Retraining, Functional Mobility, Group Exercise/Act as Ind ( educ, exercise, memory, socialization, funct activity, problem solving) Treatment Duration: Sep 26, 2017 Frequency: At least 5 of 7 days/Wk (IRF) Estimated Hrs Per Day: 1.5 hours per day (1.25 to 1.5 hours) Agreement: Yes Rehab Potential: Fair Time/GCodes Start Time: 08:20 Stop Time: 09:35 Total Time Billed (hr/min): 75 Billed Treatment Time visit, ADL 75 SCHUYLER ALVARADO OT Sep 04, 2017 11:46
--- NOTE | 2017-09-04 11:58 | Physical Therapy Daily Note ---
PT Daily Note-Current Subjective Agreeable. 'I'm getting closer to going home!" Pt happy to be going to his daughter's home on Friday. Transfers Functional [place] Measure 0=Not Assessed/NA 4=Minimal Assistance 1=Total Assistance 5=Supervision or Setup 2=Maximal Assistance 6=Modified [place] 3=Moderate Assistance 7=Complete IndependenceIRFPAI Quality Coding Scale 6 Independent with activity with or without an assistive device 5 Patient requires set up or clean up by helper. Patient completes activity by themselves 4 Supervision or touching assist (CGA). [place] provide cues , steadying assist 3 The helper provides less than half the effort to complete the activity 2 The helper provides more than half the effort to complete the activity 1 Dependent. The helper does all the effort to complete an activity 7 Patient refused to complete or attempt activity 9 The patient did not perform the activity before the current illness or injury 88 Not attempted due to Medical conditions or safety concerns Transfers (B, C, W/C) (FIM): 5 Sit to/from Stand: 5 Sit to Stand (QC): 5 Chair/Kjw-bt-Ugghk Xfer(QC): 5 Pt requires skilled cues 50% of the time for hand placement with sit to / from stand. Worked on sit to stand transfers x 10 reps with SBA. Weight Bearing Right Lower Extremity: Right Full Weight Bearing Left Lower Extremity: Left Full Weight Bearing Gait Training Does the Patient Walk?: Yes Gait (FIM): 5 Distance (FIM): 3=150 ft Distance: 150 ft x2; 50 ft x 2 Walk 10 feet (QC): 5 Walk 50 ft with 2 Turns(QC): 5 Walk 150 ft (QC): 5 Gait Assistive Device: FWW decreased step length and foot clearance that exaggerates with fatigue. Corrects with cuing. Stair Training Stair Training: Handrails/: 2 handrails Stairs (FIM): 5 #of Steps: 8 Stairs: Pattern: Step to up/down 8 steps mod indep. Exercises Standing: Hip Abduction, Hamstring curls, Heel/toe raises, Marching, Mini squats Standing Reps: 15 (to increase LE strength and functional activity tolerance in standing. ) Assessment Current Status: Good Progress Transfers and gait are improving with improved LE strength as well. Still limited in gait distance due to fatigue. Gait is steady without LOB and he did well on the stairs as well. PT Snf Goals Snf Goals PT Snf Goals Time Frame: Sep 26, 2017 Transfers (B,C,W/C) (FIM): 6 Sit to Lying (QC): 6 Lying-Sitting on Side/Bed(QC): 6 Sit to Stand (QC): 6 Rollin Roll Left to Right (QC): 6 Chair/Wjs-fk-Odcmi Xfer(QC): 6 Car Transfer (QC): 6 Does the Patient Walk: Yes Gait (FIM): 6 Gait distance (FIM): 3=150 ft Distance: >300' Walk 10 feet (QC): 6 Walk 10ft-Uneven Surface(QC): 6 Walk 50ft with 2 Turns (QC): 6 Walk 150 ft (QC): 6 Gait Level of Assist: 6 Gait Assistive Device: FWW Stairs (FIM): 5 # of Steps: 12 1 Step (curb) (QC): 5 4 Steps (QC): 5 12 Steps (QC): 5 Stairs Level Of Assist: 5 Picking up an Object (QC): 5 PT Plan Problem List Problem List: Activity Tolerance, Functional Strength, Safety, Balance, Gait, Transfer Treatment/Plan Treatment Plan: Continue Plan of Care Treatment Plan: Bed Mobility, Education, Functional Activity Harmony, Functional Strength, Group Therapy, Gait, Safety, Therapeutic Exercise, Transfers Treatment Duration: Sep 26, 2017 Frequency: At least 5 of 7 days/Wk (IRF) Estimated Hrs Per Day: 1.5 hours per day Patient and/or Family Agrees t: Yes Safety Risks/Education Patient Education: Transfer Techniques Teaching Recipient: Patient Teaching Methods: Demonstration, Discussion Response to Teaching: Return Demonstration, Reinforcement Needed Time/GCodes Time In: 1030 Time Out: 1125 Total Billed Treatment Time: 55 Total Billed Treatment visit GT 20 FA 10 EX 25 PIYUSH TAN PT Sep 04, 2017 11:58
--- NOTE | 2017-09-04 15:18 | Speech Therapy Daily Note ---
Speech Daily Progress Note Subjective Date Seen by Provider: Sep 04, 2017 Time Seen by Provider: 09:15 The patient was sitting up in recliner upon entrance. The patient greeted the clinician appropriately and was agreeable to participation in the cognitive treatment session. Objective Functional Tasks: The patient was asked to count change and bills. Additionally , he was asked to find change amounts for specific products, add specific items/ amounts, and count a combination of bills and coins. The patient displayed moderate difficulty with this task, completing the task with less than 25% accuracy and maximum clinician cueing. The patient required frequent redirection to task, as well as, a reminder of the directions. The patient did turn off his TV through the session stating, "it's just going to distract me." Orientation: The patient was oriented to day of week, year, and location. Assessment Assessment Current Status: Fair Progress Treatment Plan Continue Plan of Care Communication Comprehension: 2 Expression: 2 Social Cognition Social Interaction: 2 Problem Solvin Memory: 1 Speech Short Term Goals Short Term Goals Short Term Goals 1. The patient will recall and demonstrate three functional memory strategies for use at home. 2. The patient will complete functional ADL tasks (clock reading, check writing , etc) with 80% accuracy and mild clinician cueing. 3. The patient will accurately sequence ADL activities with 80% accuracy, independently. 4. The patient will complete structured word-finding tasks with 80% accuracy and mild clinician cueing. Time Frame-STG: One Week Speech Long-Term Goals Long-Term Goals 1. The patient will display improved cognitive linguistic skills for increased function and safety with ADL's in the least restrictive setting. Time Frame: Two Weeks Comprehension: 4 Expression: 5 Social Interaction: 5 Problem Solvin Memory: 4 Speech-Plan Treatment Plan Speech Therapy Treatment Plan: Continue Plan of Care Continue skilled speech pathology to target functional communication and problem solving. Treatment Duration: Sep 05, 2017 Frequency: Modified Program (IRF) (Three to Five Times Per Week) Estimated Hrs Per Day: .5 hour per day Rehab Potential: Fair Safety Risks/Education Teaching Recipient: Patient Teaching Methods: Demonstration, Discussion Response to Teaching: Unable to Return Demonstration, Reinforcement Needed Education Topics Provided: Addition of Coins Time Speech Therapy Time In: 09:15 Speech Therapy Time Out: 09:45 Total Billed Time: 30 Billed Treatment Time Daniele SHYAMKELLI CARUSOYKATERINENURIA ST Sep 04, 2017 15:18
--- NOTE | 2017-09-04 15:30 | Physical Therapy Daily Note ---
PT Daily Note-Current Subjective Pt sleeping when PT entered, agreed to PT. Transfers Functional [place] Measure 0=Not Assessed/NA 4=Minimal Assistance 1=Total Assistance 5=Supervision or Setup 2=Maximal Assistance 6=Modified [place] 3=Moderate Assistance 7=Complete IndependenceIRFPAI Quality Coding Scale 6 Independent with activity with or without an assistive device 5 Patient requires set up or clean up by helper. Patient completes activity by themselves 4 Supervision or touching assist (CGA). [place] provide cues , steadying assist 3 The helper provides less than half the effort to complete the activity 2 The helper provides more than half the effort to complete the activity 1 Dependent. The helper does all the effort to complete an activity 7 Patient refused to complete or attempt activity 9 The patient did not perform the activity before the current illness or injury 88 Not attempted due to Medical conditions or safety concerns Weight Bearing Right Lower Extremity: Right Full Weight Bearing Left Lower Extremity: Left Full Weight Bearing Treatments Pt ambulated 150 ft x 2 with FWW with SBA with skilled cues for posture and foot clearance. Pt rode the nu step x 15 minutes to promote LE strength and functional activity tolerance to promote ability to mobilize in home distances. Assessment Current Status: Good Progress Gait and transfers improved. Did not require reminders for hand placement with sit to stand this visit. PT Longterm Goals Greeter Guest Services Goals PT Longterm Goals Time Frame: Sep 26, 2017 Transfers (B,C,W/C) (FIM): 6 Sit to Lying (QC): 6 Lying-Sitting on Side/Bed(QC): 6 Sit to Stand (QC): 6 Rollin Roll Left to Right (QC): 6 Chair/Ddl-ez-Kmjoa Xfer(QC): 6 Car Transfer (QC): 6 Does the Patient Walk: Yes Gait (FIM): 6 Gait distance (FIM): 3=150 ft Distance: >300' Walk 10 feet (QC): 6 Walk 10ft-Uneven Surface(QC): 6 Walk 50ft with 2 Turns (QC): 6 Walk 150 ft (QC): 6 Gait Level of Assist: 6 Gait Assistive Device: FWW Stairs (FIM): 5 # of Steps: 12 1 Step (curb) (QC): 5 4 Steps (QC): 5 12 Steps (QC): 5 Stairs Level Of Assist: 5 Picking up an Object (QC): 5 PT Plan Problem List Problem List: Activity Tolerance, Functional Strength, Safety, Balance Treatment/Plan Treatment Plan: Continue Plan of Care Treatment Plan: Bed Mobility, Education, Functional Activity Harmony, Functional Strength, Group Therapy, Gait, Safety, Therapeutic Exercise, Transfers Treatment Duration: Sep 26, 2017 Frequency: At least 5 of 7 days/Wk (IRF) Estimated Hrs Per Day: 1.5 hours per day Patient and/or Family Agrees t: Yes Safety Risks/Education Patient Education: Safety Issues Teaching Recipient: Patient Teaching Methods: Discussion Response to Teaching: Verbalize Understanding Time/GCodes Time In: 1400 Time Out: 1430 Total Billed Treatment Time: 30 Total Billed Treatment visit GT 15 EX 15 PIYUSH TAN PT Sep 04, 2017 15:30
[2017-09-04] MEDS ORDERED: BETH25TA PO (16:57)
[2017-09-04] MEDS ORDERED: Finasteride PO (16:57)
[2017-09-04] MEDS ORDERED: ACET-77 PO (16:57)
[2017-09-04] MEDS ORDERED: INSU100V5 SQ (16:57)
[2017-09-04] MEDS ORDERED: TAMS0.4C2 PEG (16:57)
[2017-09-04] MEDS ORDERED: CLON0.1T PO (16:57)
[2017-09-04] MEDS ORDERED: DILT30TA PO (16:57)
[2017-09-04] MEDS ORDERED: CARV6.252 PO (16:57)
[2017-09-04] MEDS ORDERED: DOCU100C37 PO (16:57)
[2017-09-04 17:46] VITALS: BP 117/67
[2017-09-05] MEDS: NYSTATIN ORAL SUSP 5 ML UDC PO SCH ×4 (00:47→17:10)
[2017-09-05 05:03] VITALS: BP 101/60
[2017-09-05] MEDS: BETHANECHOL 25 MG (URECHOLINE) TAB PO SCH ×4 (06:34→20:15)
[2017-09-05] MEDS: THIAMINE 100 MG (VITAMIN B-1) TAB PO SCH (06:34)
[2017-09-05] MEDS: inSUlin ASPART (NovoLOG) 1 UNIT/0.01 ML (CHARGE PER UNIT) SC SCH ×4 (06:35→21:26)
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
[2017-09-05] MEDS: CHLORHEXIDINE 0.12% SOLN 15 ML (PERIDEX) UDC PO SCH ×2 (09:59→20:15)
[2017-09-05] MEDS: ALFUZOSIN HCL 10 MG TAB (UROXATRAL) PO SCH (09:59)
[2017-09-05] MEDS: inSUlin DETERMIR 1 UNIT/0.01 ML (LEVEMIR) CHARGE PER UNIT SQ SCH (09:59)
[2017-09-05] MEDS: FINASTERIDE (PROSCAR) 5 MG TAB PO SCH (09:59)
[2017-09-05] MEDS: DOCUSATE SODIUM 100 MG (COLACE) CAP PO SCH ×2 (09:59→20:16)
[2017-09-05] MEDS: CARVEDILOL 6.25 MG (COREG) TAB PO SCH ×2 (10:00→20:16)
[2017-09-05] MEDS: DILTIAZEM 30 MG (CARDIZEM) TAB PO SCH ×3 (10:00→20:16)
[2017-09-05] MEDS: cloNIDine 0.1 MG (CATAPRES) TAB PO SCH ×2 (10:00→20:16)
[2017-09-05] MEDS: ARTIFICAL TEARS 0.4 ML UNIT DOSE (REFRESH PLUS) OU SCH ×4 (10:00→20:15)
--- NOTE | 2017-09-05 12:05 | Physical Therapy Daily Note ---
PT Daily Note-Current Subjective Pt. smiles, very pleasant, agrees to Rx. Pain Numeric Pain Scale: 0-No Pain Mental Status Patient Orientation: Normal For Age Transfers Functional [place] Measure 0=Not Assessed/NA 4=Minimal Assistance 1=Total Assistance 5=Supervision or Setup 2=Maximal Assistance 6=Modified [place] 3=Moderate Assistance 7=Complete IndependenceIRFPAI Quality Coding Scale 6 Independent with activity with or without an assistive device 5 Patient requires set up or clean up by helper. Patient completes activity by themselves 4 Supervision or touching assist (CGA). [place] provide cues , steadying assist 3 The helper provides less than half the effort to complete the activity 2 The helper provides more than half the effort to complete the activity 1 Dependent. The helper does all the effort to complete an activity 7 Patient refused to complete or attempt activity 9 The patient did not perform the activity before the current illness or injury 88 Not attempted due to Medical conditions or safety concerns Transfers (B, C, W/C) (FIM): 6 Scootin Rollin Supine to/from Sit: 6 Sit to/from Stand: 6 Bed to/from Chair: 6 Car Transfer (QC): 6 Weight Bearing Right Lower Extremity: Right Full Weight Bearing Left Lower Extremity: Left Full Weight Bearing Gait Training Does the Patient Walk?: Yes Gait (FIM): 5 Distance (FIM): 3=150 ft (200x2) Gait Level of Assist: 5 Gait Persons Needed: 1 Gait Assistive Device: FWW slow, no LOB Wheelchair Training Does the Pt Use a Wheelchair?: No Stair Training Stair Training: Handrails/: 2 handrails Stairs (FIM): 5 #of Steps: 12 Stairs: Pattern: Reciprocal Level of Assist: 5 Exercises Supine Ex: Bridging, Ankle pumps, Quad Set, Rolling, Glut sets, Heel Slides, Short Arc Quads, Straight leg raise, Hip abd/add Supine Reps: 15 NuStep Minutes: 10 NuStep Workload: 4 Assessment Current Status: Good Progress PT Custodial Goals Custodial Goals PT Band Booker Goals Time Frame: Sep 26, 2017 Transfers (B,C,W/C) (FIM): 6 Sit to Lying (QC): 6 Lying-Sitting on Side/Bed(QC): 6 Sit to Stand (QC): 6 Rollin Roll Left to Right (QC): 6 Chair/Zpr-tl-Oqbiz Xfer(QC): 6 Car Transfer (QC): 6 Does the Patient Walk: Yes Gait (FIM): 6 Gait distance (FIM): 3=150 ft Distance: >300' Walk 10 feet (QC): 6 Walk 10ft-Uneven Surface(QC): 6 Walk 50ft with 2 Turns (QC): 6 Walk 150 ft (QC): 6 Gait Level of Assist: 6 Gait Assistive Device: FWW Stairs (FIM): 5 # of Steps: 12 1 Step (curb) (QC): 5 4 Steps (QC): 5 12 Steps (QC): 5 Stairs Level Of Assist: 5 Picking up an Object (QC): 5 PT Plan Treatment/Plan Treatment Plan: Continue Plan of Care Treatment Plan: Bed Mobility, Education, Functional Activity Harmony, Functional Strength, Group Therapy, Gait, Safety, Therapeutic Exercise, Transfers Treatment Duration: Sep 26, 2017 Frequency: At least 5 of 7 days/Wk (IRF) Estimated Hrs Per Day: 1.5 hours per day Patient and/or Family Agrees t: Yes Safety Risks/Education Patient Education: Gait Training, Transfer Techniques, Steps, Correct Positioning, Safety Issues Teaching Recipient: Patient Teaching Methods: Demonstration, Discussion Response to Teaching: Verbalize Understanding, Return Demonstration, Reinforcement Needed Time/GCodes Time In: 1115 Time Out: 1200 Total Billed Treatment Time: 45 Total Billed Treatment 1,EX15m,GT15m,FA15m G Codes Necessary: HANS Gerard MULTI SENSOR OPERATOR Sep 05, 2017 12:05
--- NOTE | 2017-09-05 13:35 | Speech Therapy Daily Note ---
Speech Daily Progress Note Subjective Date Seen by Provider: Sep 05, 2017 Time Seen by Provider: 10:00 The patient was laying in bed upon entrance. The patient greeted the clinician appropriately and was agreeable to participation in the cognitive treatment session. Objective JASMIN (Assessment of Language Related Functional Activities) were continued on this date with the below results: - Calendar Use: The patient demonstrated 100% accuracy with simple calendar and planner scheduler tasks, independently. - Understanding Medicine Labels: The patient displayed 80% accuracy with questions pertaining to medicine labels on this date with mild clinician cueing. Orientation: The patient was oriented to month, day of week, and city ( independently). The patient stated the year was 2015. Assessment Assessment Current Status: Fair Progress Treatment Plan Continue Plan of Care Communication Comprehension: 3 Expression: 3 Social Cognition Social Interaction: 4 Problem Solvin Memory: 2 Speech Short Term Goals Short Term Goals Short Term Goals 1. The patient will recall and demonstrate three functional memory strategies for use at home. 2. The patient will complete functional ADL tasks (clock reading, check writing , etc) with 80% accuracy and mild clinician cueing. 3. The patient will accurately sequence ADL activities with 80% accuracy, independently. 4. The patient will complete structured word-finding tasks with 80% accuracy and mild clinician cueing. Time Frame-STG: One Week Speech Nursing Home Goals Municipal Clerk Goals 1. The patient will display improved cognitive linguistic skills for increased function and safety with ADL's in the least restrictive setting. Time Frame: Two Weeks Comprehension: 4 Expression: 5 Social Interaction: 5 Problem Solvin Memory: 4 Speech-Plan Treatment Plan Speech Therapy Treatment Plan: Continue Plan of Care Continue skilled speech pathology to target functional memory strategies and problem solving. Treatment Duration: Sep 05, 2017 Frequency: Modified Program (IRF) (Three to Five Times Per Week) Estimated Hrs Per Day: .5 hour per day Rehab Potential: Fair Safety Risks/Education Teaching Recipient: Patient Teaching Methods: Discussion Response to Teaching: Verbalize Understanding, Return Demonstration Education Topics Provided: External Memory Strategies Time Speech Therapy Time In: 10:00 Speech Therapy Time Out: 10:30 Total Billed Time: 30 Billed Treatment Time MATTHIAS Sanabria ELIZABETH Sep 05, 2017 13:35
--- NOTE | 2017-09-05 13:36 | Speech Therapy Rehab Re-Cert ---
Speech Re-Certification Form Treatment Duration: 09/12/2017 Speech Therapy Treatment Plan: Continue Plan of Care # of days/week Four to Five Visits Per Week: Four to Five Minutes/Day (M-F): 30 Minutes Rehab Potential: Fair Speech Short Term Goals Short Term Goals Short Term Goals 1. The patient will recall and demonstrate three functional memory strategies for use at home. CONTINUE/PROGRESSING 2. The patient will complete functional ADL tasks (clock reading, check writing , etc) with 80% accuracy and mild clinician cueing. CONTINUE/PROGRESSING 3. The patient will accurately sequence ADL activities with 80% accuracy, independently. CONTINUE/PROGRESSING 4. The patient will complete structured word-finding tasks with 80% accuracy and mild clinician cueing. CONTINUE/PROGRESSING Time Frame-STG: One Week Speech Psychiatric Technician Assistant Goals Psychiatric Technician Assistant Goals 1. The patient will display improved cognitive linguistic skills for increased function and safety with ADL's in the least restrictive setting. Time Frame: Two Weeks Comprehension: 4 Expression: 5 Social Interaction: 5 Problem Solvin Memory: 4 NURIA LOMAX Sep 05, 2017 13:36
--- NOTE | 2017-09-05 14:42 | Therapy Group Daily Note ---
Therapy Daily Group Note Patient Education Topic Home Safety, Energy Cons, Other List Below (Relaxation) Exercises LE Seated Exercise, UE Exercise Other/Notes Pt attended group PT/OT session and participated in group by completing introduction and sharing what he does to relax. Pt participated in education/ discussion about energy conservation but couldn't remember anything he had done to conserve energy. Pt able to return demonstration of UE and LE relaxation and stretching exercises. Pt walked to room with FWW and SBA, left up in recliner, alarm on, all needs met. Start Time: 13:00 Stop Time: 14:10 Total Billed Treatment Time: 70 Total Billed Treatment visit, group 70 minutes SCHUYLER ALVARADO OT Sep 05, 2017 14:42
--- NOTE | 2017-09-05 14:52 | Occupational Ther Daily Note ---
OT Current Status-Daily Note Subjective Pt in recliner at beginning of tx. Agreeable to therapy. No mention of pain. Appearance Alert, cooperative. Mental Status/Objective Functional [place] Measure 0=Not Assessed/NA 4=Minimal Assistance 1=Total Assistance 5=Supervision or Setup 2=Maximal Assistance 6=Modified [place] 3=Moderate Assistance 7=Complete [place] ADL-Treatment Functional [place] Measure 0=Not Assessed/NA 4=Minimal Assistance 1=Total Assistance 5=Supervision or Setup 2=Maximal Assistance 6=Modified [place] 3=Moderate Assistance 7=Complete IndependenceIRFPAI Quality Coding Scale 6 Independent with activity with or without an assistive device 5 Patient requires set up or clean up by helper. Patient completes activity by themselves 4 Supervision or touching assist (CGA). [place] provide cues , steadying assist 3 The helper provides less than half the effort to complete the activity 2 The helper provides more than half the effort to complete the activity 1 Dependent. The helper does all the effort to complete an activity 7 Patient refused to complete or attempt activity 9 The patient did not perform the activity before the current illness or injury 88 Not attempted due to Medical conditions or safety concerns Grooming (FIM): 5 (Pt able to wash hands and clean and replace dentures while standing at sink with SBA. Accessible sink, FWW) Upper Body (FIM): 5 (Pt able to doff and don pullover shirt with supervision. ) Lower Body Dressing (FIM): 4 (Pt able to doff and don underwear and pants with SBA for standing to manage clothing (improvement of needing assist with catheter bag which has been removed). Pt doffed socks with no assist. Pt educated on sock aid, but needed assist to get sock on sock aid. Sock aid, FWW) Pt walked to sink with FWW and SBA to complete grooming. Pt walked with FWW and SBA to shower room to practice using shower bench in tub in preparation for d/c next week. Pt able to transfer on and off shower bench but continues to need reminders to reach back when transferring sit <> stand. Pt walked to gym with FWW and SBA where he did table top activity of graduated clothes pins for strengthening to improve sock aid use. Pt walked back to room with FWW and SBA. Pt was in recliner with all needs met and chair alarm on at end of tx. Education OT Patient Education: Progress toward Goal/Update tx plan, Purpose of tx/ functional activities, Transfer techniques, Use of adapted equipment Teaching Recipient: Patient Teaching Methods: Demonstration, Discussion Response to Teaching: Verbalize Understanding, Return Demonstration, Reinforcement Needed OT Short Term Goals Short Term Goals Time Frame: Sep 05, 2017 Eating(FIM): 5 Grooming(FIM): 5 Toileting(FIM): 3 Toilet/Commode Transfer(FIM): 4 Additional Short Term Goals: 1-Demonstrate ADL Tasks, 2-Verbalize Understanding , 3-ImproveStrength/Harmony 1=Demonstrate adherence to instructed precautions during ADL tasks. 2=Patient will verbalize/demonstrate understanding of assistive devices/ modifications for ADL. 3=Patient will improve strength/tolerance for activity to enable patient to perform ADL's. OT Cobol Developer Goals Cobol Developer Goals Time Frame: Sep 26, 2017 Eating (FIM): 6 Eating (QC): 6 Groomin Oral Hygiene (QC): 6 Bathing(FIM): 5 Shower/Bathe Self (QC): 5 Upper Body Dressing(FIM): 6 Upper Body Dressing (QC): 6 Lower Body Dressing(FIM): 6 Lower Body Dressing (QC): 6 On/Off Footwear (QC): 6 Toileting(FIM): 6 Toileting Hygiene (QC): 6 Toilet/Commode Transfer(FIM): 6 Toilet/Commode Transfer (QC): 6 Shower Transfer(FIM): 5 Comprehension(FIM): 4 Expression (FIM): 5 Social Interaction(FIM): 5 Problem Solving(FIM): 4 Memory(FIM): 4 Additional Goals: 1-Demonstrate ADL Tasks, 2-Verbalize Understanding, 3- ImproveStrength/Harmony 1=Demonstrate adherence to instructed precautions during ADL tasks. 2=Patient will verbalize/demonstrate understanding of assistive devices/ modifications for ADL. 3=Patient will improve strength/tolerance for activity to enable patient to perform ADL's. OT Education/Plan Problem List/Assessment Pt would benefit from skilled OT to increase his independence in basic self care to allow him to safely return to his home or other appropriate placement and to decrease caregiver burden. Discharge Recommendations Plan/Recommendations: Continue POC Treatment Plan/Plan of Care Patient would benefit from OT for education, treatment and training to promote independence in ADL's, mobility, safety and/or upper extremity function for ADL' s. Plan of Care: ADL Retraining, Functional Mobility, Group Exercise/Act as Ind ( educ, exercise, memory, socialization, funct activity, problem solving) Treatment Duration: Sep 26, 2017 Frequency: At least 5 of 7 days/Wk (IRF) Estimated Hrs Per Day: 1.5 hours per day (1.25 to 1.5 hours) Agreement: Yes Rehab Potential: Fair Time/GCodes Start Time: 08:30 Stop Time: 09:25 Total Time Billed (hr/min): 55 Billed Treatment Time visit, ADL 45 minutes, exercise 10 minutes SCHUYLER ALVARADO OT Sep 05, 2017 14:52
--- NOTE | 2017-09-05 15:54 | Diagnostic Imaging Report ---
PROCEDURE: CT head without contrast. TECHNIQUE: Multiple contiguous axial images were obtained through the brain without the use of intravenous contrast. INDICATION: Altered mental state with confusion. COMPARISON: Comparison with 08/26/2017. FINDINGS: There is diffuse cortical atrophy. Diffuse white matter changes are noted throughout periventricular region and basal ganglia bilaterally. There is generalized cortical atrophy. There is no intracranial hemorrhage. The density noted along the medial aspect of the right frontal lobe previously is not present and is felt to have represented artifact previously. There is no extra-axial fluid collection. There is diffuse white matter change in the brainstem. No pituitary masses. Orbital contents are symmetrical. There is a small amount of fluid in the right mastoid air cells. Left mastoid air cells are clear. Paranasal sinuses are clear where visualized. IMPRESSION: Diffuse cortical atrophy with marked white matter changes consistent with chronic small vessel disease. No acute changes have occurred when compared with 08/26/2017. Dictated by: Dictated on workstation # [id number]
[2017-09-05 18:00] VITALS: BP 136/74
[2017-09-06] MEDS: NYSTATIN ORAL SUSP 5 ML UDC PO SCH ×4 (00:44→18:21)
[2017-09-06 05:00] VITALS: BP 101/57
[2017-09-06] MEDS: BETHANECHOL 25 MG (URECHOLINE) TAB PO SCH ×4 (06:18→20:06)
[2017-09-06] MEDS: inSUlin ASPART (NovoLOG) 1 UNIT/0.01 ML (CHARGE PER UNIT) SC SCH ×4 (06:18→20:16)
[2017-09-06] MEDS: THIAMINE 100 MG (VITAMIN B-1) TAB PO SCH (06:18)
[2017-09-06 08:00] VITALS: BP 115/69
[2017-09-06] MEDS: DILTIAZEM 30 MG (CARDIZEM) TAB PO SCH ×3 (08:29→20:06)
[2017-09-06] MEDS: CARVEDILOL 6.25 MG (COREG) TAB PO SCH ×2 (08:29→20:06)
[2017-09-06] MEDS: FINASTERIDE (PROSCAR) 5 MG TAB PO SCH (08:29)
[2017-09-06] MEDS: ALFUZOSIN HCL 10 MG TAB (UROXATRAL) PO SCH (08:30)
[2017-09-06] MEDS: DOCUSATE SODIUM 100 MG (COLACE) CAP PO SCH ×2 (08:30→20:06)
[2017-09-06] MEDS: cloNIDine 0.1 MG (CATAPRES) TAB PO SCH ×2 (08:30→20:06)
[2017-09-06] MEDS: inSUlin DETERMIR 1 UNIT/0.01 ML (LEVEMIR) CHARGE PER UNIT SQ SCH (08:33)
[2017-09-06] MEDS: CHLORHEXIDINE 0.12% SOLN 15 ML (PERIDEX) UDC PO SCH ×2 (08:33→20:06)
[2017-09-06] MEDS: ARTIFICAL TEARS 0.4 ML UNIT DOSE (REFRESH PLUS) OU SCH ×4 (09:43→20:06)
--- NOTE | 2017-09-06 12:01 | Physical Therapy Daily Note ---
PT Daily Note-Current Subjective Pt ready to go back to bed. Agreeable to PT. Pt denies pain. Mental Status Patient Orientation: Person, Place Transfers Functional Hand Measure 0=Not Assessed/NA 4=Minimal Assistance 1=Total Assistance 5=Supervision or Setup 2=Maximal Assistance 6=Modified [place] 3=Moderate Assistance 7=Complete IndependenceIRFPAI Quality Coding Scale 6 Independent with activity with or without an assistive device 5 Patient requires set up or clean up by helper. Patient completes activity by themselves 4 Supervision or touching assist (CGA). [place] provide cues , steadying assist 3 The helper provides less than half the effort to complete the activity 2 The helper provides more than half the effort to complete the activity 1 Dependent. The helper does all the effort to complete an activity 7 Patient refused to complete or attempt activity 9 The patient did not perform the activity before the current illness or injury 88 Not attempted due to Medical conditions or safety concerns Transfers mod (I) all levels Weight Bearing Right Lower Extremity: Right Full Weight Bearing Left Lower Extremity: Left Full Weight Bearing Gait Training Gait Assistive Device: FWW Pt amb with FWW, CGA, shoes on x 300ft. Mask on pt outside of room for droplet precautions. Exercises Seated Therapy Exercises: Long arc quads Seated Reps: 20 Assessment Current Status: Good Progress Good participation. Pt back to bed per pt request with all needs met. Call light in place. Nurse aid present. PT Boring Machine Feeder Goals Boring Machine Feeder Goals PT Group Home Goals Time Frame: Sep 26, 2017 Transfers (B,C,W/C) (FIM): 6 Sit to Lying (QC): 6 Lying-Sitting on Side/Bed(QC): 6 Sit to Stand (QC): 6 Rollin Roll Left to Right (QC): 6 Chair/Twd-wm-Yctdg Xfer(QC): 6 Car Transfer (QC): 6 Does the Patient Walk: Yes Gait (FIM): 6 Gait distance (FIM): 3=150 ft Distance: >300' Walk 10 feet (QC): 6 Walk 10ft-Uneven Surface(QC): 6 Walk 50ft with 2 Turns (QC): 6 Walk 150 ft (QC): 6 Gait Level of Assist: 6 Gait Assistive Device: FWW Stairs (FIM): 5 # of Steps: 12 1 Step (curb) (QC): 5 4 Steps (QC): 5 12 Steps (QC): 5 Stairs Level Of Assist: 5 Picking up an Object (QC): 5 PT Plan Treatment/Plan Treatment Plan: Continue Plan of Care Treatment Plan: Bed Mobility, Education, Functional Activity Harmony, Functional Strength, Group Therapy, Gait, Safety, Therapeutic Exercise, Transfers Treatment Duration: Sep 26, 2017 Frequency: At least 5 of 7 days/Wk (IRF) Estimated Hrs Per Day: 1.5 hours per day Patient and/or Family Agrees t: Yes Time/GCodes Time In: 1040 Time Out: 1103 Total Billed Treatment Time: 23 Total Billed Treatment 1, gait x 23min ABEL KOHLI CPTA Sep 06, 2017 12:01
[2017-09-06 18:18] VITALS: BP 111/68
[2017-09-07] MEDS: NYSTATIN ORAL SUSP 5 ML UDC PO SCH ×4 (00:55→18:08)
[2017-09-07] MEDS: THIAMINE 100 MG (VITAMIN B-1) TAB PO SCH (05:49)
[2017-09-07] MEDS: BETHANECHOL 25 MG (URECHOLINE) TAB PO SCH ×4 (05:49→21:28)
[2017-09-07] MEDS: inSUlin ASPART (NovoLOG) 1 UNIT/0.01 ML (CHARGE PER UNIT) SC SCH ×4 (05:59→21:38)
[2017-09-07 06:01] VITALS: BP 107/61
[2017-09-07] MEDS: CARVEDILOL 6.25 MG (COREG) TAB PO SCH ×2 (08:33→21:28)
[2017-09-07] MEDS: DOCUSATE SODIUM 100 MG (COLACE) CAP PO SCH ×2 (08:33→21:28)
[2017-09-07] MEDS: FINASTERIDE (PROSCAR) 5 MG TAB PO SCH (08:33)
[2017-09-07] MEDS: DILTIAZEM 30 MG (CARDIZEM) TAB PO SCH ×3 (08:33→21:27)
[2017-09-07] MEDS: ALFUZOSIN HCL 10 MG TAB (UROXATRAL) PO SCH (08:33)
[2017-09-07] MEDS: cloNIDine 0.1 MG (CATAPRES) TAB PO SCH ×2 (08:34→21:28)
[2017-09-07] MEDS: CHLORHEXIDINE 0.12% SOLN 15 ML (PERIDEX) UDC PO SCH ×2 (08:35→21:28)
[2017-09-07] MEDS: ARTIFICAL TEARS 0.4 ML UNIT DOSE (REFRESH PLUS) OU SCH ×4 (08:36→21:28)
[2017-09-07] MEDS: inSUlin DETERMIR 1 UNIT/0.01 ML (LEVEMIR) CHARGE PER UNIT SQ SCH (09:19)
[2017-09-07 18:00] VITALS: BP 128/76
[2017-09-08] MEDS: NYSTATIN ORAL SUSP 5 ML UDC PO SCH ×3 (00:14→12:10)
[2017-09-08] MEDS: THIAMINE 100 MG (VITAMIN B-1) TAB PO SCH (06:20)
[2017-09-08] MEDS: BETHANECHOL 25 MG (URECHOLINE) TAB PO SCH ×2 (06:20→12:10)
[2017-09-08] MEDS: inSUlin ASPART (NovoLOG) 1 UNIT/0.01 ML (CHARGE PER UNIT) SC SCH ×2 (06:23→11:00)
[2017-09-08 06:38] VITALS: BP 124/75
[2017-09-08] MEDS: CHLORHEXIDINE 0.12% SOLN 15 ML (PERIDEX) UDC PO SCH (08:04)
[2017-09-08] MEDS: inSUlin DETERMIR 1 UNIT/0.01 ML (LEVEMIR) CHARGE PER UNIT SQ SCH (08:05)
[2017-09-08] MEDS: ARTIFICAL TEARS 0.4 ML UNIT DOSE (REFRESH PLUS) OU SCH ×2 (08:05→12:10)
[2017-09-08] MEDS: FINASTERIDE (PROSCAR) 5 MG TAB PO SCH (08:05)
[2017-09-08] MEDS: DILTIAZEM 30 MG (CARDIZEM) TAB PO SCH (08:05)
[2017-09-08] MEDS: cloNIDine 0.1 MG (CATAPRES) TAB PO SCH (08:05)
[2017-09-08] MEDS: CARVEDILOL 6.25 MG (COREG) TAB PO SCH (08:05)
[2017-09-08] MEDS: ALFUZOSIN HCL 10 MG TAB (UROXATRAL) PO SCH (08:05)
[2017-09-08] MEDS: DOCUSATE SODIUM 100 MG (COLACE) CAP PO SCH (08:05)
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
--- NOTE | 2017-09-08 08:50 | Speech Therapy Daily Note ---
Speech Daily Progress Note Subjective Date Seen by Provider: Sep 08, 2017 Time Seen by Provider: 08:15 The patient was seated upright in a chair upon entrance. The patient greeted the clinician appropriately and was agreeable to participation in the cognitive treatment session. The patient is to discharge on this date into the care of his daughter. Objective Orientation Information: The patient was independently oriented to month, year, day of week, and city. This is an improvement from admission where the patient was frequently unaware of the accurate date, location, or month of the year. The patient is able to state his own name, his date of , and his age ( independently). Swallowing Precautions: Swallowing precautions were reviewed and discussed. The patient denied any questions or concerns regarding his current swallowing recommendations. Problem Solving/Safety: The patient was able to state the phone number needed for emergency cases, as well as, report his recommendation for a use of a walker and a shower bench. Assessment Assessment Current Status: Good Progress Treatment Plan Continue Plan of Care Communication Comprehension: 4 Expression: 4 Social Cognition Social Interaction: 5 Problem Solvin Memory: 3 Speech Short Term Goals Short Term Goals Short Term Goals 1. The patient will recall and demonstrate three functional memory strategies for use at home. CONTINUE/PROGRESSING 2. The patient will complete functional ADL tasks (clock reading, check writing , etc) with 80% accuracy and mild clinician cueing. CONTINUE/PROGRESSING 3. The patient will accurately sequence ADL activities with 80% accuracy, independently. CONTINUE/PROGRESSING 4. The patient will complete structured word-finding tasks with 80% accuracy and mild clinician cueing. CONTINUE/PROGRESSING Time Frame-STG: One Week Speech Care Home Goals Heading Pinner Goals 1. The patient will display improved cognitive linguistic skills for increased function and safety with ADL's in the least restrictive setting. Time Frame: Two Weeks Comprehension: 4 (MET) Expression: 5 (NOT MET) Social Interaction: 5 (MET) Problem Solvin (NOT MET) Memory: 4 (NOT MET) Speech-Plan Treatment Plan Speech Therapy Treatment Plan: Continue Plan of Care Continue skilled speech pathology to target functional communication and problem solving. Treatment Duration: Sep 05, 2017 Frequency: Modified Program (IRF) (Three to Five Times Per Week) Estimated Hrs Per Day: .5 hour per day Rehab Potential: Fair Safety Risks/Education Teaching Recipient: Patient Teaching Methods: Discussion Response to Teaching: Verbalize Understanding Education Topics Provided: Safety Problem Solving, Swallowing Recommendations Time Speech Therapy Time In: 08:15 Speech Therapy Time Out: 08:28 Total Billed Time: 13 Billed Treatment Time 1, NURIA ALONSO Sep 08, 2017 08:50
--- NOTE | 2017-09-08 08:52 | Therapy Team Discharge Summary ---
Therapy Discharge Summary Discharge Recommendations Date of Discharge Therapy D/C Recommendations: Physical Therapy Home Care Occupational Therapy Decreased Activ Tolerance, Decreased Safety Aware, Decreased UE Strength, Dependent Transfers, Impaired Cognition, Impaired Coordination, Impaired Funct Balance, Impaired Self-Care Skills, Restricted Funct UE ROM Speech-Language Pathology The patient was admitted to [facility] following a TBI. Upon admission , the patient displayed moderate cognitive deficits in the areas of memory, orientation, and word finding. Skilled speech pathology focused on word-finding strategies, functional safety problem solving, recall of simple orientation, and swallowing strategies. While the patient did demonstrate improvement, he did not meet expression or memory goals placed by the clinician. The patient does discharge 100% oriented to month, year, location, and day of week which is an improvement from admission where the patient was oriented to name, only. At this time, the patient will discharge in the care of his daughter. Additional speech pathology services are not warranted post discharge. PT Care Home Goals Student Success Coach Goals PT Student Success Coach Goals Time Frame: Sep 26, 2017 Transfers (B,C,W/C) (FIM): 6 Roll Left to Right (QC): 6 Sit to Lying (QC): 6 Lying-Sitting on Side/Bed(QC): 6 Sit to Stand (QC): 6 Chair/Xka-se-Ubspw Xfer(QC): 6 Car Transfer (QC): 6 Does the Patient Walk: Yes Gait (FIM): 6 Gait distance (FIM): 3=150 ft Distance: >300' Walk 10 feet (QC): 6 Walk 10ft-Uneven Surface(QC): 6 Walk 50ft with 2 Turns (QC): 6 Walk 150 ft (QC): 6 Gait Level of Assist: 6 Gait Assistive Device: FWW Stairs (FIM): 5 # of Steps: 12 1 Step (curb) (QC): 5 4 Steps (QC): 5 12 Steps (QC): 5 Stairs Level Of Assist: 5 Picking up an Object (QC): 5 OT Care Home Goals Care Home Goals Time Frame: Sep 26, 2017 Eating (FIM): 6 Eating (QC): 6 Oral Hygiene (QC): 6 Grooming(FIM): 6 Bathing(FIM): 5 Shower/Bathe Self (QC): 5 Upper Body Dressing(FIM): 6 Upper Body Dressing (QC): 6 Lower Body Dressing(FIM): 6 Lower Body Dressing (QC): 6 On/Off Footwear (QC): 6 Toileting(FIM): 6 Toileting Hygiene (QC): 6 Toilet/Commode Transfer(FIM): 6 Toilet/Commode Transfer (QC): 6 Shower Transfer(FIM): 5 Comprehension(FIM): 4 (MET) Expression (FIM): 5 (NOT MET) Social Interaction(FIM): 5 (MET) Problem Solving(FIM): 4 (NOT MET) Memory(FIM): 4 (NOT MET) Additional Goals: 1-Demonstrate ADL Tasks, 2-Verbalize Understanding, 3- ImproveStrength/Harmony 1=Demonstrate adherence to instructed precautions during ADL tasks. 2=Patient will verbalize/demonstrate understanding of assistive devices/ modifications for ADL. 3=Patient will improve strength/tolerance for activity to enable patient to perform ADL's. Speech Student Success Coach Goals Student Success Coach Goals 1. The patient will display improved cognitive linguistic skills for increased function and safety with ADL's in the least restrictive setting. Time Frame: Two Weeks Comprehension: 4 (MET) Expression: 5 (NOT MET) Social Interaction: 5 (MET) Problem Solvin (NOT MET) Memory: 4 (NOT MET) NURIA LOMAX Sep 08, 2017 08:52
--- NOTE | 2017-09-08 10:11 | Occupational Ther Daily Note ---
OT Current Status-Daily Note Subjective Pt in recliner and agreeable to therapy. No mention of pain. Appearance Alert, cooperative. Mental Status/Objective Functional [place] Measure 0=Not Assessed/NA 4=Minimal Assistance 1=Total Assistance 5=Supervision or Setup 2=Maximal Assistance 6=Modified [place] 3=Moderate Assistance 7=Complete [place] ADL-Treatment Pt walked to closet to retrieve clothes with FWW and SBA. Pt walked to bathroom with FWW and SBA. Functional [place] Measure 0=Not Assessed/NA 4=Minimal Assistance 1=Total Assistance 5=Supervision or Setup 2=Maximal Assistance 6=Modified [place] 3=Moderate Assistance 7=Complete IndependenceIRFPAI Quality Coding Scale 6 Independent with activity with or without an assistive device 5 Patient requires set up or clean up by helper. Patient completes activity by themselves 4 Supervision or touching assist (CGA). [place] provide cues , steadying assist 3 The helper provides less than half the effort to complete the activity 2 The helper provides more than half the effort to complete the activity 1 Dependent. The helper does all the effort to complete an activity 7 Patient refused to complete or attempt activity 9 The patient did not perform the activity before the current illness or injury 88 Not attempted due to Medical conditions or safety concerns Eating (FIM): 6 (Pt reports able to open milk carton this morning and no trouble opening other packages or containers. ) Eating (QC): 6 Grooming (FIM): 5 (Pt able to soak dentures, apply denture adhesive, and insert dentures with supervision for balance while standing. Washed hands and face while in shower. ) Oral Hygiene (QC): 4 Bathing (FIM): 5 (Pt bathed 10 parts with SBA for standing to wash bottom and rinse. Pt not able to turn water off or on but could retrieve clothes and towel. Shower bench, grab bar, FWW, hand held shower.) Shower/Bathe Self (QC): 4 (Cues and SBA.) Upper Body (FIM): 5 (Pt able to doff and don pull socket assembler shirt while seated with supervision for safety. ) Upper Body Dressing (QC): 4 (supervision) Lower Body Dressing (FIM): 4 (Pt able to doff and don underwear and pants with supervision, SBA. Able to doff socks himself, don socks using sock aid with min assist to get socks on aid, dons shoes with supervision. ) Lower Body Dressing (QC): 4 On/Off Footwear (QC): 3 (Pt needs assist to get socks on sock aid. Can get socks off. Can doff/don shoes) Toileting (FIM): 5 (Pt able to manage clothing and hygiene with cues, supervision. Tall toilet, grab bars, FWW ) Toileting Hygiene (QC): 4 (supervision, some cues to adjust clothing) Toilet/Commode Transfer (FIM): 5 (Pt able to transfer on and off toilet with SBA for safety. Tall toilet, grab bars, FWW.) Toilet Transfer (QC): 4 Shower Transfer(FIM): 5 (Pt transfers on and off shower bench with verbal cues for FWW placement and hand placement. ) Pt continues to need supervision and cues to keep on task and complete task. Pt walked to recliner from bathroom with FWW and SBA. Pt in recliner with chair alarm set and all needs met at end of tx. Education OT Patient Education: Progress toward Goal/Update tx plan, Purpose of tx/ functional activities, Transfer techniques, Use of adapted equipment Teaching Recipient: Patient Teaching Methods: Demonstration, Discussion Response to Teaching: Verbalize Understanding, Return Demonstration, Reinforcement Needed OT Short Term Goals Short Term Goals Time Frame: Sep 05, 2017 Eating(FIM): 5 Grooming(FIM): 5 Toileting(FIM): 3 Toilet/Commode Transfer(FIM): 4 Additional Short Term Goals: 1-Demonstrate ADL Tasks, 2-Verbalize Understanding , 3-ImproveStrength/Harmony 1=Demonstrate adherence to instructed precautions during ADL tasks. 2=Patient will verbalize/demonstrate understanding of assistive devices/ modifications for ADL. 3=Patient will improve strength/tolerance for activity to enable patient to perform ADL's. OT Intermediate Goals Machine Group Leader Goals Time Frame: Sep 26, 2017 Eating (FIM): 6 (goal met 09-08-17) Eating (QC): 6 (goal met 12--17) Groomin (goal not met --17) Oral Hygiene (QC): 6 (goal not met 17) Bathing(FIM): 5 (goal met 12-4-17) Shower/Bathe Self (QC): 5 (goal not met 09-08-17) Upper Body Dressing(FIM): 6 (goal not met 09-08-17) Upper Body Dressing (QC): 6 (goal not met 09-08-17) Lower Body Dressing(FIM): 6 (goal not met 09-08-17) Lower Body Dressing (QC): 6 (goal not met 09-08-17) On/Off Footwear (QC): 6 (goal not met 09-08-17) Toileting(FIM): 6 (goal not met 09-08-17) Toileting Hygiene (QC): 6 (goal not met 09-08-17) Toilet/Commode Transfer(FIM): 6 (goal not met 09-08-17) Toilet/Commode Transfer (QC): 6 (goal not met 09-08-17) Shower Transfer(FIM): 5 (goal met 09-08-17) Comprehension(FIM): 4 (MET) Expression (FIM): 5 (NOT MET) Social Interaction(FIM): 5 (MET) Problem Solving(FIM): 4 (NOT MET) Memory(FIM): 4 (NOT MET) Additional Goals: 1-Demonstrate ADL Tasks, 2-Verbalize Understanding, 3- ImproveStrength/Harmony 1=Demonstrate adherence to instructed precautions during ADL tasks. 2=Patient will verbalize/demonstrate understanding of assistive devices/ modifications for ADL. 3=Patient will improve strength/tolerance for activity to enable patient to perform ADL's. OT Education/Plan Problem List/Assessment Pt would benefit from skilled OT to increase his independence in basic self care to allow him to safely return to his home or other appropriate placement and to decrease caregiver burden. Discharge Recommendations Plan/Recommendations: Discharge/Goals Met (see tx plan for specifics) Treatment Plan/Plan of Care Patient would benefit from OT for education, treatment and training to promote independence in ADL's, mobility, safety and/or upper extremity function for ADL' s. Plan of Care: ADL Retraining, Functional Mobility, Group Exercise/Act as Ind ( educ, exercise, memory, socialization, funct activity, problem solving) Treatment Duration: Sep 26, 2017 Frequency: At least 5 of 7 days/Wk (IRF) Estimated Hrs Per Day: 1.5 hours per day (1.25 to 1.5 hours) Agreement: Yes Rehab Potential: Fair Time/GCodes Start Time: 08:30 Stop Time: 09:15 Total Time Billed (hr/min): 45 Billed Treatment Time visit, ADL 45 minutes SCHUYLER ALVARADO OT Sep 08, 2017 10:11
--- NOTE | 2017-09-08 10:46 | Physical Therapy Daily Note ---
PT Daily Note-Current Subjective Agrees to Rx, feeling well. Pain Numeric Pain Scale: 0-No Pain Mental Status Patient Orientation: Normal For Age Transfers Functional [place] Measure 0=Not Assessed/NA 4=Minimal Assistance 1=Total Assistance 5=Supervision or Setup 2=Maximal Assistance 6=Modified [place] 3=Moderate Assistance 7=Complete IndependenceIRFPAI Quality Coding Scale 6 Independent with activity with or without an assistive device 5 Patient requires set up or clean up by helper. Patient completes activity by themselves 4 Supervision or touching assist (CGA). [place] provide cues , steadying assist 3 The helper provides less than half the effort to complete the activity 2 The helper provides more than half the effort to complete the activity 1 Dependent. The helper does all the effort to complete an activity 7 Patient refused to complete or attempt activity 9 The patient did not perform the activity before the current illness or injury 88 Not attempted due to Medical conditions or safety concerns Transfers (B, C, W/C) (FIM): 6 Scootin Rollin Roll Left to Right (QC): 6 Supine to/from Sit: 6 Sit to/from Stand: 6 Sit to Lying (QC): 6 Sit to Stand (QC): 6 Chair/Iwo-ju-Uqdkn Xfer(QC): 6 Bed to/from Chair: 6 Car Transfer (QC): 6 Weight Bearing Right Lower Extremity: Right Full Weight Bearing Left Lower Extremity: Left Full Weight Bearing Gait Training Does the Patient Walk?: Yes Gait (FIM): 6 Distance (FIM): 3=150 ft (x2) Walk 10 feet (QC): 6 Walk 50 ft with 2 Turns(QC): 6 Walk 150 ft (QC): 6 Walking 10ft/uneven surface-QC: 6 Gait Level of Assist: 6 Gait Persons Needed: 0 Gait Assistive Device: FWW Stair Training Stair Training: Handrails/: 2 handrails Stairs (FIM): 5 #of Steps: 12 1 Step (curb) (QC): 5 4 Steps (QC): 5 12 Steps (QC): 5 Stairs: Pattern: Reciprocal Level of Assist: 5 Balance Special Test Comments unsafe, not trialed Assessment Current Status: Good Progress meets goals PT Fdc Goals Fdc Goals PT Fdc Goals Time Frame: Sep 26, 2017 Transfers (B,C,W/C) (FIM): 6 Sit to Lying (QC): 6 Lying-Sitting on Side/Bed(QC): 6 Sit to Stand (QC): 6 Rollin Roll Left to Right (QC): 6 Chair/Tnc-ru-Qqecg Xfer(QC): 6 Car Transfer (QC): 6 Does the Patient Walk: Yes Gait (FIM): 6 Gait distance (FIM): 3=150 ft Distance: >300' Walk 10 feet (QC): 6 Walk 10ft-Uneven Surface(QC): 6 Walk 50ft with 2 Turns (QC): 6 Walk 150 ft (QC): 6 Gait Level of Assist: 6 Gait Assistive Device: FWW Stairs (FIM): 5 # of Steps: 12 1 Step (curb) (QC): 5 4 Steps (QC): 5 12 Steps (QC): 5 Stairs Level Of Assist: 5 Picking up an Object (QC): 5 PT Plan Treatment/Plan Treatment Plan: Discontinue PT, goals met Treatment Plan: Bed Mobility, Education, Functional Activity Harmony, Functional Strength, Group Therapy, Gait, Safety, Therapeutic Exercise, Transfers Treatment Duration: Sep 26, 2017 Frequency: At least 5 of 7 days/Wk (IRF) Estimated Hrs Per Day: 1.5 hours per day Patient and/or Family Agrees t: Yes Safety Risks/Education Patient Education: Gait Training, Transfer Techniques, Steps, Correct Positioning, Disease Process, Safety Issues Teaching Recipient: Patient Teaching Methods: Demonstration, Discussion Response to Teaching: Verbalize Understanding, Return Demonstration, Reinforcement Needed Time/GCodes Time In: 1005 Time Out: 1025 Total Billed Treatment Time: 20 Total Billed Treatment 1,FA20m G Codes Necessary: HANS Gerard PTA Sep 08, 2017 10:46
--- NOTE | 2017-09-08 11:50 | Progress Note-Urology ---
Progress Note-Urology Progress Notes/Assess & Plan Progress/Assessment & Plan VOIDING VERY WELL. PVR 0. TOLERATES MEDS WELL Final Diagnosis URINE RETENTION DEREK GONZALEZ MD Sep 08, 2017 11:50 am
[2017-09-08 12:30] VITALS: BP 121/73
--- NOTE | 2017-09-08 14:46 | PM & R (SOAP) Progress Note ---
Subjective Time Seen by Provider: 12:00 Subjective/Events-last exam Patient discharged to home with his daughter today with C Objective Exam Last Set of Vital Signs Vital Signs Date Time Temp Pulse Resp B/P (MAP) Pulse Ox O2 Delivery O2 Flow Rate FiO2 09/08/17 12:30 71 18 121/73 98 Room Air 09/08/17 06:38 98.4 Capillary Refill : Less Than 3 Seconds I&O Intake and Output 09/08/17 00:00 Intake Total 1940 ml Output Total 1350 ml Balance 590 ml Intake Oral 1740 ml Tube Feeding 200 ml Output Urine Total 1350 ml # Voids 1 # Bowel Movements 2 General: Alert, Cooperative, No Acute Distress HEENT: Atraumatic, PERRLA, EOMI, Mucous Memb Moist/[place]: Supple, No JVD Lungs: Clear to Auscultation Heart: Regular Rate Abdomen: Normal Bowel Sounds, Soft, No Tenderness, Other Extremities: No Edema (Strength 4-/5) Results Lab Laboratory Tests 09/05/17 15:53: Glucometer 107 09/05/17 21:14: Glucometer 108 09/06/17 05:28: Glucometer 93 09/06/17 11:03: Glucometer 111H 09/06/17 16:03: Glucometer 93 09/06/17 20:16: Glucometer 136H 09/07/17 05:57: Glucometer 85 09/07/17 11:06: Glucometer 96 09/07/17 15:50: Glucometer 98 09/07/17 21:30: Glucometer 121H 09/08/17 06:21: Glucometer 91 09/08/17 11:07: Glucometer 110 Assessment/Plan Assessment TBI with encephalopathy -a bit more confused today s/p decannulation S/P PEG on po feeds Frx left elbow s/p repair MRSA in sputum with contact precautions Urinary retention managed with Indwelling [place] catheter for now.-DR zambrano following Plan Discharge today as per above F/U with PCP and HHC See orders. WINDY BERKOWITZ MD Sep 08, 2017 14:46
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
== END 2017-09-08 12:35 | disposition home health service (06) | DRG 950 ==
PROVIDERS: ADMIT Physical Medicine & Rehabilitation; ATTEND Physical Medicine & Rehabilitation
DX: S06.2X5D Diffuse traumatic brain injury with loss of consciousness greater than 24 hours with return to pre-existing conscious levels, subsequent encounter (principal); S42.402D Unspecified fracture of lower end of left humerus, subsequent encounter for fracture with routine healing; Z22.322 Carrier or suspected carrier of Methicillin resistant Staphylococcus aureus; J44.9 Chronic obstructive pulmonary disease, unspecified; E11.9 Type 2 diabetes mellitus without complications; R33.9 Retention of urine, unspecified; V99.XXXD Unspecified transport accident, subsequent encounter
CPT/HCPCS: 36415; 70450; 71020; 80048; 80076; 81000; 82140; 82962; 85007; 85027; 94640; 94760

== ENCOUNTER 2017-09-11 10:58 | Emergency (ER) | payer MEDICARE ==
[~2017-09-11] VITALS: Ht 172.7 cm; Wt 77.1 kg
[~2017-09-11 10:58] MED LIST: ACET-77 PO; ACET160E28 PEG; ALBU2.5V4 NEB; BETH25TA PO; CARV6.252 PEG; CARV6.252 PO; CHLO473M MM; CLON0.1T PEG; CLON0.1T PO; CLON1TAB3 PEG; DILT30TA PEG; DILT30TA PO; DOCU100C37 PO; DOCU50LI PEG; FINA5TAB6 PEG; Finasteride PO; INSU100V16 SQ; INSU100V5 SQ; LACT-72 PEG; NYST1000 PO; POLY15DR14 OU; PROT1PAC2 PEG; TAMS0.4C2 PEG; THIA100T12 PEG
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
[2017-09-11 11:30] VITALS: BP 140/80
== END 2017-09-11 11:30 | disposition home or self-care (01) ==
LOC: EDUNIT# 10:58 → ER 11:23
DX: K94.23 Gastrostomy malfunction (principal)
CPT/HCPCS: 99281

== ENCOUNTER 2017-10-01 10:35 | Observation (INO) | payer MEDICARE ==
[~2017-10-01] VITALS: Ht 167.6 cm; Wt 68.0 kg
[2017-10-01 11:01] LABS: BASOPHILS % (AUTO) 1 % (0-10); EOSINOPHILS # (AUTO) 0.2 10^3/uL (0.0-0.3); EOSINOPHILS % (AUTO) 5 % (0-10); HEMATOCRIT 37 % (40-54); LYMPHOCYTES # (AUTO) 1.8 X 10^3 (1.0-4.0); LYMPHOCYTES % (AUTO) 43 % (12-44); MEAN CORPUSCULAR HEMOGLOBIN 28 PG (25-34); MEAN CORPUSCULAR HGB CONC 32 G/DL (32-36); MEAN CORPUSCULAR VOLUME 86 FL (80-99); MEAN PLATELET VOLUME 9.5 FL (7.4-10.4); MONOCYTES # (AUTO) 0.5 X 10^3 (0.0-1.0); MONOCYTES % (AUTO) 11 % (0-12); NEUTROPHILS # (AUTO) 1.8 X 10^3 (1.8-7.8); NEUTROPHILS % (AUTO) 42 % (42-75); PLATELET COUNT 173 10^3/uL (130-400); RED BLOOD COUNT 4.34 10^6/uL (4.35-5.85); RED CELL DISTRIBUTION WIDTH 14.6 % (10.0-14.5); WHITE BLOOD COUNT 4.2 10^3/uL (4.3-11.0)
--- NOTE | 2017-10-01 11:06 | Diagnostic Imaging Report ---
INDICATION: Left facial droop. Slurred speech. TECHNIQUE: Routine non contrast-enhanced axial images were obtained from the skull base to the vertex. COMPARISON: 08/26/2017. FINDINGS: The ventricles and cortical sulci are diffusely prominent, compatible with age-related volume loss. There are confluent areas of abnormal, low attenuation in the periventricular white matter. This is consistent with chronic small vessel ischemic changes. There is no midline shift or mass-effect. No acute intra-axial hemorrhage is seen. There are no abnormal areas of increased or decreased density to suggest acute hemorrhage or edema. No extra-axial masses or collections are present. The bony calvarium is intact. The visualized paranasal sinuses are partially opacified on the right. The mastoid air cells are clear. IMPRESSION: 1. No acute intracranial abnormality. No CT evidence of mass, acute infarct or intracranial hemorrhage. 2. Chronic small vessel ischemic changes in the deep white matter. Dictated by: Dictated on workstation # [id number]
[2017-10-01 11:11] LABS: PROTHROMBIN TIME PATIENT 13.4 SEC (12.2-14.7)
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
[2017-10-01 11:14] LABS: FIBRIN DEGRADATION PRODUCTS 1.16 UG/ML (0.00-0.49)
[2017-10-01 11:18] LABS: ALANINE AMINOTRANSFERASE 15 U/L (0-55); ALBUMIN 3.9 GM/DL (3.2-4.5); ALKALINE PHOSPHATASE 88 U/L (40-136); BILIRUBIN,TOTAL 1.2 MG/DL (0.1-1.0); BUN/CREATININE RATIO 18; CARBON DIOXIDE 23 MMOL/L (21-32); CHLORIDE 108 MMOL/L (98-107); GFR ESTIMATED > 60; GLUCOSE 103 MG/DL (70-105); POTASSIUM 4.4 MMOL/L (3.6-5.0); SODIUM 142 MMOL/L (135-145); TOTAL PROTEIN 7.3 GM/DL (6.4-8.2)
[2017-10-01] MEDS ORDERED: ASPIRIN 325 MG (5 GR) TABLET PO ONE (13:00)
--- NOTE | 2017-10-01 13:01 | Diagnostic Imaging Report ---
PROCEDURE: US Carotid Duplex Bilateral. TECHNIQUE: Multiple real-time grayscale images were obtained over the carotid arteries in various projections bilaterally. Additional duplex Doppler and color Doppler images were also obtained. INDICATION: Slurred speech. Possible stroke. FINDINGS: There is atherosclerotic plaque seen along the carotid bifurcation bilaterally. There is color flow seen in common, internal and external carotid arteries bilaterally. There is antegrade flow in the vertebral arteries demonstrated. Peak systolic velocities in the right ICA are 43 cm/s, 59 cm/s and 90 cm/s from proximal to distal. Peak systolic velocities in the left ICA are 61 cm/s, 80 cm/s, and 48 cm/s from proximal to distal. ICA/CCA ratios are not significantly elevated. IMPRESSION: Atherosclerotic plaque is seen at the carotid bifurcation bilaterally with estimated underlying stenosis less than 50%. Dictated by: Dictated on workstation # [id number]
[2017-10-01 13:45] VITALS: BP 138/83
[2017-10-01] MEDS ORDERED: CLON0.1T PO (14:34)
[2017-10-01] MEDS ORDERED: DILT30TA PO (14:34)
[2017-10-01] MEDS ORDERED: FINA5TAB6 PO (14:34)
[2017-10-01] MEDS ORDERED: BETH25TA PO (14:34)
[2017-10-01] MEDS ORDERED: INSU100V5 SQ (14:34)
[2017-10-01] MEDS ORDERED: CARV6.25 PO (14:34)
[2017-10-01] MEDS ORDERED: TAMS0.4C98 PO (14:34)
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
[2017-10-01 16:14] VITALS: BP 145/83
[2017-10-01] MEDS: ACYCLOVIR 400 MG TABLET (ZOVIRAX) PO SCH ×3 (17:12→21:52)
[2017-10-01] MEDS: predniSONE 20 MG TAB PO SCH (17:12)
[2017-10-01] MEDS ORDERED: PATIENT MAY USE OWN MEDS, ALL MC SCH (17:15)
--- NOTE | 2017-10-01 18:44 | Diagnostic Imaging Report ---
PROCEDURE: MR imaging of the brain without contrast. TECHNIQUE: Multiplanar, multisequence MR imaging of the brain was performed without contrast. INDICATION: Facial droop, slurred speech. COMPARISON: None. FINDINGS: Four separate foci of diffusion restriction are seen in the periventricular white matter bilaterally. This has the appearance of an embolic stroke event. There is advanced age-related cerebral volume loss and chronic small vessel ischemic changes. There is no shift. No hemorrhage identified. There is no obvious mass. Visualized vascular flow voids have a normal appearance. IMPRESSION: 1. Four separate foci of diffusion restriction in the periventricular white matter consistent with acute ischemic infarcts. 2. Advanced age-related cerebral volume loss and chronic small vessel ischemic changes. 3. No hemorrhage identified. Dictated by: Dictated on workstation # [id number]
[2017-10-01 19:30] VITALS: BP 129/77
[2017-10-01] MEDS: CARVEDILOL 6.25 MG (COREG) TAB PO SCH (20:01)
[2017-10-01] MEDS: DILTIAZEM 30 MG (CARDIZEM) TAB PO SCH (20:02)
[2017-10-02] VITALS: BP 129/73
[2017-10-02] MEDS: ACYCLOVIR 400 MG TABLET (ZOVIRAX) PO SCH ×2 (02:08→06:02)
[2017-10-02 02:30] VITALS: BP 131/82
[2017-10-02 04:00] VITALS: BP 144/79
[2017-10-02] MEDS: predniSONE 20 MG TAB PO SCH (06:02)
[2017-10-02 08:00] VITALS: BP 125/78
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
[2017-10-02] MEDS ORDERED: ASPIRIN E.C. 325 MG (ECOTRIN) TABLET PO SCH (09:30)
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
[2017-10-02] MEDS ORDERED: ASPI325T32 PO (09:53)
[2017-10-02] MEDS: DILTIAZEM 30 MG (CARDIZEM) TAB PO SCH (10:19)
[2017-10-02] MEDS: CARVEDILOL 6.25 MG (COREG) TAB PO SCH (10:20)
[2017-10-02 11:57] VITALS: BP 125/78
== END 2017-10-02 09:53 | disposition home or self-care (01) ==
LOC: EDUNIT# 10:35 → ER 10:37 → 4TH 13:35 → UNDOADMOB 13:35 → 4TH 13:45 → UNDODISOB 10-02 12:10
PROVIDERS: ADMIT Internal Medicine; ATTEND Internal Medicine
DX: I63.9 Cerebral infarction, unspecified (principal); R29.810 Facial weakness; R47.1 Dysarthria and anarthria; I10 Essential (primary) hypertension; F10.21 Alcohol dependence, in remission; Z79.82 Long term (current) use of aspirin; Z79.899 Other long term (current) drug therapy
CPT/HCPCS: 36415; 70450; 70551; 71010; 80053; 82962; 84484; 85025; 85379; 85610; 85730; 93005; 93041; 93880; G0378

== ENCOUNTER 2017-12-09 13:20 | Outpatient (RCR) | payer MEDICARE ==
[~2017-12-09 13:20] MED LIST changes: +ASPI325T32 PO; +CARV6.25 PO; +FINA5TAB6 PO; +TAMS0.4C98 PO
== END 2017-12-09 16:00 | disposition home or self-care (01) ==
PROVIDERS: ATTEND Family Medicine
DX: I69.320 Aphasia following cerebral infarction (principal); I69.311 Memory deficit following cerebral infarction; I69.310 Attention and concentration deficit following cerebral infarction; I69.318 Other symptoms and signs involving cognitive functions following cerebral infarction

== ENCOUNTER 2018-06-24 05:49 | Outpatient (CLI) | payer MEDICARE ==
[~2018-06-24] VITALS: Ht 167.6 cm; Wt 76.7 kg
[~2018-06-24 05:49] MED LIST changes: +CLON1TAB13 PEG; -CLON1TAB3 PEG
[2018-06-24] MEDS ORDERED: PRAV20TA3 PO (14:25)
[2018-06-24] MEDS ORDERED: ASPI325T32 PO (14:25)
== END 2018-06-24 14:44 | disposition home or self-care (01) ==
LOC: PREOP 05:49
PROVIDERS: ATTEND Surgery
DX: Z01.818 Encounter for other preprocedural examination (principal)

== ENCOUNTER 2018-07-01 09:04 | Day surgery (SDC) | payer MEDICARE ==
[~2018-07-01] VITALS: Ht 167.6 cm; Wt 76.7 kg
[~2018-07-01 09:04] MED LIST changes: +PRAV20TA3 PO
[2018-07-01 09:15] VITALS: BP 149/92
[2018-07-01] MEDS ORDERED: NS IV 500 ML 500 ML IV PRN (09:34)
[2018-07-01] MEDS ORDERED: fentaNYL INJECTION 100 MCG/2 ML AMP IVP ONE (09:45)
[2018-07-01] MEDS ORDERED: MIDAZOLAM 2 MG/2 ML (VERSED) VIAL IVP ONE (09:45)
[2018-07-01] MEDS ORDERED: fentaNYL INJECTION 100 MCG/2 ML AMP ONE ×3 (10:41→11:24)
[2018-07-01] MEDS ORDERED: MIDAZOLAM 2 MG/2 ML (VERSED) VIAL ONE ×3 (10:42)
--- NOTE | 2018-07-01 10:55 | Conscious Sedation/ASA ---
Conscious Sedation Pre-Proced Time 10:00 ASA Score 2 For ASA 3 and 4: Consider anesthesia and medical clearance. Also, for patients with a history of failed moderate sedation consider anesthesia. Airway Lungs Heart ASA score ASA 1: a normal healthy patient ASA 2: a patient with a mild systemic disease (mid diabetes, controlled hypertension, obesity ASA 3: a patient with a severe systemic disease that limits activity (angina , COPD, prior Myocardial infarction) ASA 4: a patient with an incapacitating disease that is a constant threat to life (CHF, renal failure) ASA 5: a moribund patient not expected to survive 24 hrs. (ruptured aneurysm) ASA 6: a declared brain patient whose organs are being harvested. For emergent operations, add the letter E after the classification Mallampati Classification Grade 2 Sedation Plan Analgesia, Amnesia, Plan communicated to team members, Discussed options with patient/fam, Discussed risks with patient/fam The patient is an appropriate candidate to undergo the planned procedure, sedation, and anesthesia. The patient immediately re-assessed prior to indication. RYAN CHARLTON MD Jul 01, 2018 10:55 am
--- NOTE | 2018-07-01 10:56 | Progress Note-Pre Operative ---
Pre-Operative Progress Note H&P Reviewed The H&P was reviewed, patient examined and no changes noted. Date Seen by Provider: Jul 01, 2018 Time Seen by Provider: 10:00 Date H&P Reviewed: Jul 01, 2018 Time H&P Reviewed: 10:00 Pre-Operative Diagnosis: screening colonoscopy RYAN CHARLTON MD Jul 01, 2018 10:56 am
[2018-07-01] MEDS ORDERED: morphine INJ 10 MG/ML 1ML (SYR OR VIAL) IV PRN (11:00)
[2018-07-01] MEDS ORDERED: ONDANSETRON 4 MG/2 ML (SDV) Z0FRAN IV PRN (11:00)
[2018-07-01] MEDS ORDERED: ACETAMINOPHEN 325 MG TABLET PO PRN (11:00)
[2018-07-01] MEDS ORDERED: HYDROcodone/APAP 5 MG/325 MG (LORTAB) TAB PO PRN (11:00)
--- NOTE | 2018-07-01 11:43 | Progress Note-Post Operative ---
Post-Operative Progess Note Surgeon (s)/Chemical Research Worker (s) Surgeon RYAN CHARLTON MD Chemical Research Worker: none Pre-Operative Diagnosis screening colonoscopy Post-Operative Diagnosis chronic stage 2 ext and int hemorrhoids, HP polyp rectum(2mm), mod sig diverticulosis. Procedure & Operative Findings Date of Procedure 07/01/18 Procedure Performed/Findings Colonoscopy with bx. Anesthesia Type CS Estimated Blood Loss Estimated blood loss (mL): minimal Specimens/Packing Specimens Removed rectal polyp RYAN CHARLTON MD Jul 01, 2018 11:43 am
--- NOTE | 2018-07-01 11:46 | Discharge Inst-Surgical ---
D/C Lap Instructions-LATESHA Follow Up 10 yrs or PRN Activity as tolerated High Fiber Diet 25g or more per day Avoid Alcohol, Caffeine, Spicy [place] and Acid foods. Drink 64 fluid oz or more of fluids per day. Symptoms to Report: Fever over 101 degree F, Nausea/Vomiting If any problems/questions: Contact your physician or go to Emergency Room RYAN CHARLTON MD Jul 01, 2018 11:46 am
[2018-07-01 12:05] VITALS: BP_SYST 138; BP_SYST 149; BP_DIAS 71; BP_DIAS 92
[2018-07-01 12:45] VITALS: BP 128/85
[2018-07-01 12:50] VITALS: BP 128/85
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
== END 2018-07-01 12:50 | disposition home or self-care (01) ==
LOC: ENDO 09:04
PROVIDERS: ATTEND Surgery
DX: Z12.11 Encounter for screening for malignant neoplasm of colon (principal); K62.1 Rectal polyp; K57.30 Diverticulosis of large intestine without perforation or abscess without bleeding; K64.1 Second degree hemorrhoids; I10 Essential (primary) hypertension; N40.0 Benign prostatic hyperplasia without lower urinary tract symptoms; Z86.73 Personal history of transient ischemic attack (TIA), and cerebral infarction without residual deficits; Z87.820 Personal history of traumatic brain injury; Z79.899 Other long term (current) drug therapy; Z79.82 Long term (current) use of aspirin; Z87.891 Personal history of nicotine dependence

== ENCOUNTER → 2018-07-20 | Outpatient (CLI) | payer MEDICARE ==
--- NOTE | 2018-07-20 09:55 | Diagnostic Imaging Report ---
PROCEDURE: US Hepatic (Liver). TECHNIQUE: Multiple Real-time grayscale images were obtained over the right upper quadrant in various projections. INDICATION: Elevated liver function tests. FINDINGS: The liver is normal in size at 14 cm. No discrete liver mass is identified. The gallbladder is without stones or sludge. No wall thickening or biliary ductal dilatation is seen. The pancreas is obscured by bowel gas. The right kidney is unremarkable. There is no ascites. IMPRESSION: No evidence of cholelithiasis or acute cholecystitis. Dictated by: Dictated on workstation # [id number]
== END ==
LOC: RAD 08:12
PROVIDERS: ATTEND Family Medicine
DX: R79.89 Other specified abnormal findings of blood chemistry (principal); F10.10 Alcohol abuse, uncomplicated
CPT/HCPCS: 76705

== ENCOUNTER → 2020-01-06 | Outpatient (CLI) | payer MEDICARE ==
[~2020-01-06] MED LIST changes: -ACET-77 PO; +ACET-78 PO; -ACET160E28 PEG; +ACET160E50 PEG; -CHLO473M MM; +NFCHLORHGL MM; -TAMS0.4C98 PO; +TMSL.4C PO
--- NOTE | 2020-01-06 11:14 | Diagnostic Imaging Report ---
PROCEDURE: CT abdomen and pelvis without contrast. TECHNIQUE: Multiple contiguous axial images were obtained through the abdomen and pelvis without the use of intravenous contrast. Auto Exposure Controls were utilized during the CT exam to meet ALARA standards for radiation dose reduction. INDICATION: Newly diagnosed prostate carcinoma. No prior studies are available for comparison. FINDINGS: Imaging through lung bases does show some linear scarring or atelectasis in the right middle lobe and right lower lobe. No discrete liver mass is detected. The gallbladder is unremarkable. No biliary duct dilatation is seen. The pancreas and spleen are unremarkable. No adrenal mass is detected. No renal calculi or hydronephrosis is identified. Aorta and iliac vessels are heavily calcified but not aneurysmal. No central retroperitoneal or mesenteric lymphadenopathy is seen. The bowel loops are normal caliber. No obstruction is seen. There is diverticulosis involving the colon but no evidence of acute diverticulitis. Bladder is decompressed. Prostate appears enlarged. No definite pelvic lymphadenopathy is seen. Bony structures demonstrate marked compression fracture deformities involving the L3 and L5 vertebral bodies. This is likely chronic. No definite osteoblastic lesions are seen. There are healed lower right-sided rib fractures. IMPRESSION: 1. No evidence of abdominal or pelvic lymphadenopathy or metastatic disease. 2. Uncomplicated diverticulosis. 3. Chronic compression fracture deformities of L3 and L5 vertebral bodies. Dictated by: Dictated on workstation # [id number]
--- NOTE | 2020-01-06 14:37 | Diagnostic Imaging Report ---
INDICATION: Prostate cancer. Patient was administered 26.8 mCi technetium 99m MDP intravenously and whole-body imaging was performed after 3 hour delay. No prior bone scans are available for comparison. There is uptake of activity by the axial and appendicular skeleton. There is uptake by the kidneys with excretion into the urinary bladder. There is some minimal uptake involving right-sided posterior ribs likely owing to prior rib fractures. No other suspicious foci are identified. IMPRESSION: No scintigraphic evidence of osseous metastatic disease. Dictated by: Dictated on workstation # [id number]
== END ==
LOC: CARD 10:39
PROVIDERS: ATTEND Urology
DX: C61 Malignant neoplasm of prostate (principal); K57.90 Diverticulosis of intestine, part unspecified, without perforation or abscess without bleeding
CPT/HCPCS: 74176; 78306

== ENCOUNTER 2020-03-03 08:06 | Outpatient (RCR) | payer MEDICARE ==
[2020-02-29 12:25] VITALS: BP 119/73
[~2020-03-03] VITALS: Ht 167 cm; Wt 79.0 kg
[~2020-03-03 08:06] MED LIST changes: +PRAV10TA PO
== END 2020-03-03 14:30 | disposition home or self-care (01) ==
LOC: PREOP 08:06
PROVIDERS: ATTEND Urology
DX: Z01.818 Encounter for other preprocedural examination (principal); Z11.59 Encounter for screening for other viral diseases; Z11.2 Encounter for screening for other bacterial diseases
CPT/HCPCS: 87081; 87635

== ENCOUNTER 2020-03-08 06:41 | Day surgery (SDC) | payer MEDICARE ==
[~2020-03-08] VITALS: Ht 167 cm; Wt 79.0 kg
[2020-03-08] VITALS (8 sets, daily range): BP systolic 116–146; BP diastolic 75–99
--- OUTSIDE RECORDS SUMMARY | 2020-03-08 06:45 | XMS REPORT | Continuity of Care Document ---
Author Organization Unknown Address Unknown Phone Unavailable Allergies Active Description Code Type Severity Reaction Onset Reported/Identified Relationship to Patient Clinical Status Yes NO KNOWN DRUG ALLERGIES UNKNOWN NO KNOWN DRUG ALLERG Yes NO KNOWN DRUG ALLERGIES UNKNOWN UNKNOWN Yes No Known Allergies [id number] Drug Allergy Unknown N/A 02/29/2020 Medications There is no data. Problems Date Dx Coded Attending Type Code Diagnosis Diagnosed By 08/27/2017 WINDY BERKOWITZ MD Ot E11.9 TYPE 2 DIABETES MELLITUS WITHOUT COMPLIC 08/27/2017 WINDY BERKOWITZ MD Ot J44.9 CHRONIC OBSTRUCTIVE PULMONARY DISEASE, U 08/27/2017 WINDY BERKOWITZ MD Ot S06.9X9D UNSP INTRACRANIAL INJURY W LOC OF UNSP D 08/27/2017 WINDY BERKOWITZ MD Ot S42.402D UNSP FX LOWER END OF L HUMERUS, SUBS FOR 08/27/2017 WINDY BERKOWITZ MD Ot V99.XXXD UNSPECIFIED TRANSPORT ACCIDENT, SUBSEQUE 08/27/2017 WINDY BERKOWITZ MD Ot Z22.3 22 CARRIER OR SUSPECTED CARRIER OF METHICIL 08/28/2017 WINDY BERKOWITZ MD Ot E11.9 TYPE 2 DIABETES MELLITUS WITHOUT COMPLIC 08/28/2017 WINDY BERKOWITZ MD Ot J44.9 CHRONIC OBSTRUCTIVE PULMONARY DISEASE, U 08/28/2017 WINDY BERKOWITZ MD Ot S06.9X9D UNSP INTRACRANIAL INJURY W LOC OF UNSP D 08/28/2017 WINDY BERKOWITZ MD Ot S42.402D UNSP FX LOWER END OF L HUMERUS, SUBS FOR 08/28/2017 WINDY BERKOWITZ MD Ot V99.XXXD UNSPECIFIED TRANSPORT ACCIDENT, SUBSEQUE 08/28/2017 WINDY BERKOWITZ MD Ot Z22.3 22 CARRIER OR SUSPECTED CARRIER OF METHICIL 08/28/2017 WINDY BERKOWITZ MD Ot E11.9 TYPE 2 DIABETES MELLITUS WITHOUT COMPLIC 08/28/2017 WINDY BEROKWITZ MD Ot J44.9 CHRONIC OBSTRUCTIVE PULMONARY DISEASE, U 08/28/2017 WIDNY BERKOWITZ MD Ot S06.9X9D UNSP INTRACRANIAL INJURY W LOC OF UNSP D 08/28/2017 WINDY BERKOWITZ MD Ot S42.402D UNSP FX LOWER END OF L HUMERUS, SUBS FOR 08/28/2017 WINDY BERKOWITZ MD Ot V99.XXXD UNSPECIFIED TRANSPORT ACCIDENT, SUBSEQUE 08/28/2017 WINDY BERKOWITZ MD Ot Z22.3 22 CARRIER OR SUSPECTED CARRIER OF METHICIL 08/29/2017 WINDY BERKOWITZ MD Ot E11.9 TYPE 2 DIABETES MELLITUS WITHOUT COMPLIC 08/29/2017 WINDY BERKOWITZ MD Ot J44.9 CHRONIC OBSTRUCTIVE PULMONARY DISEASE, U 08/29/2017 WINDY BERKOWITZ MD Ot S06.9X9D UNSP INTRACRANIAL INJURY W LOC OF UNSP D 08/29/2017 WINDY BERKOWITZ MD Ot S42.402D UNSP FX LOWER END OF L HUMERUS, SUBS FOR 08/29/2017 WINDY BERKOWITZ MD Ot V99.XXXD UNSPECIFIED TRANSPORT ACCIDENT, SUBSEQUE 08/29/2017 WINDY BERKOWITZ MD Ot Z22.3 22 CARRIER OR SUSPECTED CARRIER OF METHICIL 08/30/2017 WINDY BERKOWITZ MD Ot E11.9 TYPE 2 DIABETES MELLITUS WITHOUT COMPLIC 08/30/2017 WINDY BERKOWITZ MD Ot J44.9 CHRONIC OBSTRUCTIVE PULMONARY DISEASE, U 08/30/2017 WINDY BERKOWITZ MD Ot S06.9X9D UNSP INTRACRANIAL INJURY W LOC OF UNSP D 08/30/2017 WINDY BERKOWITZ MD Ot S42.402D UNSP FX LOWER END OF L HUMERUS, SUBS FOR 08/30/2017 WINDY BERKOWITZ MD Ot V99.XXXD UNSPECIFIED TRANSPORT ACCIDENT, SUBSEQUE 08/30/2017 WINDY BERKOWITZ MD Ot Z22.3 22 CARRIER OR SUSPECTED CARRIER OF METHICIL 08/31/2017 WINDY BERKOWITZ MD Ot E11.9 TYPE 2 DIABETES MELLITUS WITHOUT COMPLIC 08/31/2017 WINDY BERKOWITZ MD Ot J44.9 CHRONIC OBSTRUCTIVE PULMONARY DISEASE, U 08/31/2017 WINDY BERKOWITZ MD Ot S06.9X9D UNSP INTRACRANIAL INJURY W LOC OF UNSP D 08/31/2017 WINDY BERKOWITZ MD Ot S42.402D UNSP FX LOWER END OF L HUMERUS, SUBS FOR 08/31/2017 WINDY BERKOWITZ MD Ot V99.XXXD UNSPECIFIED TRANSPORT ACCIDENT, SUBSEQUE 08/31/2017 WINDY BERKOWITZ MD Ot Z22.3 22 CARRIER OR SUSPECTED CARRIER OF METHICIL 09/01/2017 WINDY BERKOWITZ MD Ot E11.9 TYPE 2 DIABETES MELLITUS WITHOUT COMPLIC 09/01/2017 WINDY BERKOWITZ MD Ot J44.9 CHRONIC OBSTRUCTIVE PULMONARY DISEASE, U 09/01/2017 WINDY BERKOWITZ MD Ot S06.9X9D UNSP INTRACRANIAL INJURY W LOC OF UNSP D 09/01/2017 WINDY BERKOWITZ MD Ot S42.402D UNSP FX LOWER END OF L HUMERUS, SUBS FOR 09/01/2017 WINDY BERKOWITZ MD Ot V99.XXXD UNSPECIFIED TRANSPORT ACCIDENT, SUBSEQUE 09/01/2017 WINDY BERKOWITZ MD Ot Z22.3 22 CARRIER OR SUSPECTED CARRIER OF METHICIL 09/01/2017 WINDY BERKOWITZ MD Ot E11.9 TYPE 2 DIABETES MELLITUS WITHOUT COMPLIC 09/01/2017 WINDY BERKOWITZ MD Ot J44.9 CHRONIC OBSTRUCTIVE PULMONARY DISEASE, U 09/01/2017 WINDY BERKOWITZ MD Ot S06.9X9D UNSP INTRACRANIAL INJURY W LOC OF UNSP D 09/01/2017 WINDY BERKOWITZ MD Ot S42.402D UNSP FX LOWER END OF L HUMERUS, SUBS FOR 09/01/2017 WINDY BERKOWITZ MD Ot V99.XXXD UNSPECIFIED TRANSPORT ACCIDENT, SUBSEQUE 09/01/2017 WINDY BERKOWITZ MD Ot Z22.3 22 CARRIER OR SUSPECTED CARRIER OF METHICIL 09/02/2017 WINDY BERKOWITZ MD Ot E11.9 TYPE 2 DIABETES MELLITUS WITHOUT COMPLIC 09/02/2017 WINDY BERKOWITZ MD Ot J44.9 CHRONIC OBSTRUCTIVE PULMONARY DISEASE, U 09/02/2017 WINDY BERKOWITZ MD Ot S06.9X9D UNSP INTRACRANIAL INJURY W LOC OF UNSP D 09/02/2017 WINDY BERKOWITZ MD Ot S42.402D UNSP FX LOWER END OF L HUMERUS, SUBS FOR 09/02/2017 WINDY BERKOWITZ MD Ot V99.XXXD UNSPECIFIED TRANSPORT ACCIDENT, SUBSEQUE 09/02/2017 WINDY BERKOWITZ MD Ot Z22.3 22 CARRIER OR SUSPECTED CARRIER OF METHICIL 09/03/2017 WINDY BERKOWITZ MD Ot E11.9 TYPE 2 DIABETES MELLITUS WITHOUT COMPLIC 09/03/2017 WINDY BERKOWITZ MD Ot J44.9 CHRONIC OBSTRUCTIVE PULMONARY DISEASE, U 09/03/2017 WINDY BERKOWITZ MD Ot S06.2X5D DIFFUSE TBI W LOC >24 HR W RETURN TO CON 09/03/2017 WINDY BERKOWITZ MD Ot S42.402D UNSP FX LOWER END OF L HUMERUS, SUBS FOR 09/03/2017 WINDY BERKOWITZ MD Ot V99.XXXD UNSPECIFIED TRANSPORT ACCIDENT, SUBSEQUE 09/03/2017 WINDY BERKOWITZ MD Ot Z22.3 22 CARRIER OR SUSPECTED CARRIER OF METHICIL 09/03/2017 WINDY BERKOWITZ MD Ot E11.9 TYPE 2 DIABETES MELLITUS WITHOUT COMPLIC 09/03/2017 WINDY BERKOWITZ MD Ot J44.9 CHRONIC OBSTRUCTIVE PULMONARY DISEASE, U 09/03/2017 WINDY BERKOWITZ MD Ot S06.2X5D DIFFUSE TBI W LOC >24 HR W RETURN TO CON 09/03/2017 WINDY BERKOWITZ MD Ot S42.402D UNSP FX LOWER END OF L HUMERUS, SUBS FOR 09/03/2017 WINDY BERKOWITZ MD Ot V99.XXXD UNSPECIFIED TRANSPORT ACCIDENT, SUBSEQUE 09/03/2017 WINDY BERKOWITZ MD Ot Z22.3 22 CARRIER OR SUSPECTED CARRIER OF METHICIL 09/04/2017 WINDY BERKOWITZ MD Ot E11.9 TYPE 2 DIABETES MELLITUS WITHOUT COMPLIC 09/04/2017 WINDY BERKOWITZ MD Ot J44.9 CHRONIC OBSTRUCTIVE PULMONARY DISEASE, U 09/04/2017 WINDY BERKOWITZ MD Ot S06.2X5D DIFFUSE TBI W LOC >24 HR W RETURN TO CON 09/04/2017 WINDY BERKOWITZ MD Ot S42.402D UNSP FX LOWER END OF L HUMERUS, SUBS FOR 09/04/2017 WINDY BERKOWITZ MD Ot V99.XXXD UNSPECIFIED TRANSPORT ACCIDENT, SUBSEQUE 09/04/2017 WINDY BERKOWITZ MD Ot Z22.3 22 CARRIER OR SUSPECTED CARRIER OF METHICIL 09/05/2017 WINDY BERKOWITZ MD Ot E11.9 TYPE 2 DIABETES MELLITUS WITHOUT COMPLIC 09/05/2017 WINDY BERKOWITZ MD Ot J44.9 CHRONIC OBSTRUCTIVE PULMONARY DISEASE, U 09/05/2017 WINDY BERKOWITZ MD Ot S06.2X5D DIFFUSE TBI W LOC >24 HR W RETURN TO CON 09/05/2017 WINDY BERKOWITZ MD Ot S42.402D UNSP FX LOWER END OF L HUMERUS, SUBS FOR 09/05/2017 WINDY BERKOWITZ MD Ot V99.XXXD UNSPECIFIED TRANSPORT ACCIDENT, SUBSEQUE 09/05/2017 WINDY BERKOWITZ MD Ot Z22.3 22 CARRIER OR SUSPECTED CARRIER OF METHICIL 09/06/2017 WINDY BERKOWITZ MD Ot E11.9 TYPE 2 DIABETES MELLITUS WITHOUT COMPLIC 09/06/2017 WINDY BERKOWITZ MD Ot J44.9 CHRONIC OBSTRUCTIVE PULMONARY DISEASE, U 09/06/2017 WINDY BERKOWITZ MD Ot S06.2X5D DIFFUSE TBI W LOC >24 HR W RETURN TO CON 09/06/2017 WINDY BERKOWITZ MD Ot S42.402D UNSP FX LOWER END OF L HUMERUS, SUBS FOR 09/06/2017 WINDY BERKOWITZ MD Ot V99.XXXD UNSPECIFIED TRANSPORT ACCIDENT, SUBSEQUE 09/06/2017 WINDY BERKOWITZ MD Ot Z22.3 22 CARRIER OR SUSPECTED CARRIER OF METHICIL 09/07/2017 WINDY BERKOWITZ MD Ot E11.9 TYPE 2 DIABETES MELLITUS WITHOUT COMPLIC 09/07/2017 WINDY BERKOWITZ MD Ot J44.9 CHRONIC OBSTRUCTIVE PULMONARY DISEASE, U 09/07/2017 WINDY BERKOWITZ MD Ot S06.2X5D DIFFUSE TBI W LOC >24 HR W RETURN TO CON 09/07/2017 WINDY BERKOWITZ MD Ot S42.402D UNSP FX LOWER END OF L HUMERUS, SUBS FOR 09/07/2017 WINDY BERKOWITZ MD Ot V99.XXXD UNSPECIFIED TRANSPORT ACCIDENT, SUBSEQUE 09/07/2017 WINDY BERKOWITZ MD Ot Z22.3 22 CARRIER OR SUSPECTED CARRIER OF METHICIL 09/08/2017 WINDY BERKOWITZ MD Ot E11.9 TYPE 2 DIABETES MELLITUS WITHOUT COMPLIC 09/08/2017 WINDY BERKOWITZ MD Ot J44.9 CHRONIC OBSTRUCTIVE PULMONARY DISEASE, U 09/08/2017 WINDY BERKOWITZ MD Ot S06.2X5D DIFFUSE TBI W LOC >24 HR W RETURN TO CON 09/08/2017 WINDY BERKOWITZ MD Ot S42.402D UNSP FX LOWER END OF L HUMERUS, SUBS FOR 09/08/2017 WINDY BERKOWITZ MD Ot V99.XXXD UNSPECIFIED TRANSPORT ACCIDENT, SUBSEQUE 09/08/2017 WINDY BERKOWITZ MD Ot Z22.3 22 CARRIER OR SUSPECTED CARRIER OF METHICIL 09/08/2017 WINDY BERKOWITZ MD Ot E11.9 TYPE 2 DIABETES MELLITUS WITHOUT COMPLIC 09/08/2017 WINDY BERKOWITZ MD Ot J44.9 CHRONIC OBSTRUCTIVE PULMONARY DISEASE, U 09/08/2017 WINDY BERKOWITZ MD Ot R33.9 RETENTION OF URINE, UNSPECIFIED 09/08/2017 WINDY BERKOWITZ MD Ot S06.2X5D DIFFUSE TBI W LOC >24 HR W RETURN TO CON 09/08/2017 WINDY BERKOWITZ MD Ot S42.402D UNSP FX LOWER END OF L HUMERUS, SUBS FOR 09/08/2017 WINDY BERKOWITZ MD Ot V99.XXXD UNSPECIFIED TRANSPORT ACCIDENT, SUBSEQUE 09/08/2017 WINDY BERKOWITZ MD Ot Z22.3 22 CARRIER OR SUSPECTED CARRIER OF METHICIL 09/11/2017 ELVIA MCELROY [employer] SAL[employer] TEAMMATE Ot K94.23 GASTROSTOMY MALFUNCTION 09/15/2017 ELVIA MCELROY [employer] SAL[employer] TEAMMATE Ot K94.23 GASTROSTOMY MALFUNCTION 09/17/2017 W 305.0 ALCO HOL ABUSE 09/17/2017 W 401.0 MILADY GNANT ESSENTIAL HYPERTENSION 09/17/2017 W 564.00 CON STIPATION, UNSPECIFIED 09/17/2017 W 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.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 09/17/2017 A 805.4 CLOS ED FRACTURE OF LUMBAR VERTEBRA WITHOUT MENTION OF SPINAL CORD INJURY 09/17/2017 W F10.10 ALC OHOL ABUSE, UNCOMPLICATED 09/17/2017 W I10 ESSENT IAL (PRIMARY) HYPERTENSION 09/17/2017 W K59.00 CON STIPATION, UNSPECIFIED 09/17/2017 W N31.9 NEUR OMUSCULAR DYSFUNCTION OF BLADDER, UNSPECIFIED 09/17/2017 A S32.001S S TABLE BURST FRACTURE OF UNSPECIFIED LUMBAR VERTEBRA, SEQUELA 10/02/2017 ANGEL LUIS JARRETT DO Ot F10.21 ALCOHOL DEPENDENCE, IN REMISSION 10/02/2017 ANGEL LUIS JARRETT DO Ot I10 ESSENTIAL (PRIMARY) HYPERTENSION 10/02/2017 JOSIANE JARRETT DOI Ot I63.9 CEREBRAL INFARCTION, UNSPECIFIED 10/02/2017 JOSIANE JARRETT DOI Ot R29.81 0 FACIAL WEAKNESS 10/02/2017 ANGEL LUIS JARRETT DO Ot R47.1 DYSARTHRIA AND ANARTHRIA 10/02/2017 ANGEL LUIS JARRETT DO Ot Z79.82 SENIOR CARE (CURRENT) USE OF ASPIRIN 10/02/2017 JOSIANE JARRETT DOI Ot Z79.89 9 OTHER SENIOR CARE (CURRENT) DRUG THERAPY 10/08/2017 SWAPNA DAVIS MD Ot I69.310 ATTENTION AND CONCENTRATION DEFICIT FOLL 10/08/2017 SWAPNA DAVIS MD Ot 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 10/08/2017 SWAPNA DAVIS MD Ot I69.318 OTHER SYMPTOMS AND SIGNS W COGN FNCTNS F 10/08/2017 SWAPNA DAVIS MD Ot 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 INFARCTION 10/08/2017 A 434.91 CER EBRAL ARTERY OCCLUSION, UNSPECIFIED, WITH CEREBRAL INFARCTION 10/08/2017 W 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 10/08/2017 W 854.00 INT RACRANIAL INJURY OF OTHER AND UNSPECIFIED NATURE, WITHOUT MENTION OF OPEN INTRACRANIAL WOUND, WITH STATE OF CONSCIOUSNESS UNSPECIFIED 10/08/2017 A I63.9 CERE BRAL INFARCTION, UNSPECIFIED 10/08/2017 W 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 10/08/2017 W S06.9X0 UN SPECIFIED INTRACRANIAL INJURY WITHOUT LOSS OF CONSCIOUSNESS 10/23/2017 SWAPNA DAVIS MD L Ot I69.310 ATTENTION AND CONCENTRATION DEFICIT FOLL 10/23/2017 SWAPNA DAVIS MD Ot 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 10/23/2017 SWAPNA DAVIS MD L Ot I69.318 OTHER SYMPTOMS AND SIGNS W COGN FNCTNS F 10/23/2017 SWAPNA DAVIS MD Ot 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 INFARCTION 10/24/2017 SWAPNA DAVIS W 401.0 MALIGNANT ESSENTIAL HYPERTENSION 10/24/2017 SWAPNA DAVIS A 438.13 10/24/2017 SWAPNA DAVIS W 781.2 ABNORMALITY OF GAIT 10/24/2017 SWAPNA DAVIS W I10 ESSENTIAL (PRIMARY) HYPERTENSION 10/24/2017 SWAPNA DAVIS A I69.322 DYSARTHRIA FOLLOWING CEREBRAL INFARCTION 10/24/2017 SWAPNA DAVIS R26.81 UNSTEADINESS ON FEET 10/24/2017 SWAPNA DAVIS S06.9X9 D UNSP INTRACRANIAL INJURY W LOC OF UNSP DURATION, SUBS 10/24/2017 SWAPNA DAVIS S32.001 D STABLE BURST FX UNSP LUM VERTEBRA, SUBS FOR FX W ROUTN HEAL 10/24/2017 SWAPNA DAVIS V54.17 AFTERCARE FOR HEALING TRAUMATIC FRACTURE OF VERTEBRAE 10/24/2017 SWAPNA DAVIS V58.89 ENCOUNTER FOR OTHER SPECIFIED AFTERCARE 11/18/2017 SWAPNA DAVIS MD Ot I69.310 ATTENTION AND CONCENTRATION DEFICIT FOLL 11/18/2017 SWAPNA DAVIS MD Ot 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 11/18/2017 SWAPNA DAVIS MD Ot I69.318 OTHER SYMPTOMS AND SIGNS W COGN FNCTNS F 11/18/2017 SWAPNA DAVIS MD Ot 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 INFARCTION 11/24/2017 W 434.91 CER EBRAL ARTERY OCCLUSION, UNSPECIFIED, WITH CEREBRAL INFARCTION 11/24/2017 A 854.06 INT RACRANIAL INJURY OF OTHER AND UNSPECIFIED NATURE, WITHOUT MENTION OF OPEN INTRACRANIAL WOUND, WITH LOSS OF CONSCIOUSNESS OF UNSPECIFIED DURATION 11/24/2017 W I63.9 CERE BRAL INFARCTION, UNSPECIFIED 11/24/2017 A S06.9X9 UN SPECIFIED INTRACRANIAL INJURY WITH LOSS OF CONSCIOUSNESS OF UNSPECIFIED DURATION 12/09/2017 SWAPNA DAVIS MD Ot I69.310 ATTENTION AND CONCENTRATION DEFICIT FOLL 12/09/2017 SWAPNA DAVIS MD Ot 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 12/09/2017 SWAPNA DAVIS MD Ot I69.318 OTHER SYMPTOMS AND SIGNS W COGN FNCTNS F 12/09/2017 SWAPNA DAVIS MD Ot 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 INFARCTION 06/11/2018 SWAPNA DAVIS 401.0 MALIGNANT ESSENTIAL HYPERTENSION 06/11/2018 SWAPNA DAVIS I10 ESSENTIAL (PRIMARY) HYPERTENSION 06/11/2018 SWAPNA DAVIS V70.0 ROUTINE GENERAL MEDICAL EXAMINATION AT A HEALTH CARE FACILITY 06/11/2018 DAVIS, SWAPNA W Z00.00 ENCOUNTER FOR GENERAL ADULT MEDICAL EXAMINATION WITHOUT ABNORMAL FINDINGS 06/11/2018 DAVIS, SWAPNA W 401.0 MALIGNANT ESSENTIAL HYPERTENSION 06/11/2018 SWAPNA DAVIS W 434.91 CEREBRAL ARTERY OCCLUSION, UNSPECIFIED, WITH CEREBRAL INFARCTION 06/11/2018 SWAPNA DAVIS W I10 ESSENTIAL (PRIMARY) HYPERTENSION 06/11/2018 RYAN SWAPNA W I63.9 CEREBRAL INFARCTION, UNSPECIFIED 06/11/2018 SWAPNA DAVIS W V70.0 ROUTINE GENERAL MEDICAL EXAMINATION AT A HEALTH CARE FACILITY 06/11/2018 RYAN SWAPNA W Z00.00 ENCOUNTER FOR GENERAL ADULT MEDICAL EXAMINATION WITHOUT ABNORMAL FINDINGS 06/11/2018 SWAPNA DAVIS W 401.0 MALIGNANT ESSENTIAL HYPERTENSION 06/11/2018 SWAPNA DAVIS W 434.91 CEREBRAL ARTERY OCCLUSION, UNSPECIFIED, WITH CEREBRAL INFARCTION 06/11/2018 SWAPNA DAVIS W I10 ESSENTIAL (PRIMARY) HYPERTENSION 06/11/2018 SWAPNA DAVIS I63.9 CEREBRAL INFARCTION, UNSPECIFIED 06/11/2018 WSAPNA DAVIS V70.0 ROUTINE GENERAL MEDICAL EXAMINATION AT A HEALTH CARE FACILITY 06/11/2018 RYAN SWAPNA W Z00.00 ENCOUNTER FOR GENERAL ADULT MEDICAL EXAMINATION WITHOUT ABNORMAL FINDINGS 06/11/2018 W 290.4 VASC ULAR DEMENTIA 06/11/2018 W 401.0 MILADY GNANT ESSENTIAL HYPERTENSION 06/11/2018 W 434.91 CER EBRAL ARTERY OCCLUSION, UNSPECIFIED, WITH CEREBRAL INFARCTION 06/11/2018 W F01.50 VAS CULAR DEMENTIA WITHOUT BEHAVIORAL DISTURBANCE 06/11/2018 W I10 ESSENT IAL (PRIMARY) HYPERTENSION 06/11/2018 W I63.9 CERE BRAL INFARCTION, UNSPECIFIED 06/11/2018 W V70.0 ROUT INE GENERAL MEDICAL EXAMINATION AT A HEALTH CARE FACILITY 06/11/2018 W Z00.00 ENC OUNTER FOR GENERAL ADULT MEDICAL EXAMINATION WITHOUT ABNORMAL FINDINGS 06/11/2018 SWAPNA DAVIS W 401.0 MALIGNANT ESSENTIAL HYPERTENSION 06/11/2018 SWAPNA DAVIS W 434.91 CEREBRAL ARTERY OCCLUSION, UNSPECIFIED, WITH CEREBRAL INFARCTION 06/11/2018 SWAPNA DAVIS W I10 ESSENTIAL (PRIMARY) HYPERTENSION 06/11/2018 SWAPNA DAVIS W I63.9 CEREBRAL INFARCTION, UNSPECIFIED 06/11/2018 DAVIS, SWAPNA W V70.0 ROUTINE GENERAL MEDICAL EXAMINATION AT A [facility] FACILITY 06/11/2018 SWAPNA DAVIS W Z00.00 ENCOUNTER FOR GENERAL ADULT MEDICAL EXAMINATION WITHOUT ABNORMAL FINDINGS 06/24/2018 RYAN CHARLTON MD, Ot Z01.81 8 ENCOUNTER FOR OTHER PREPROCEDURAL EXAMIN 06/25/2018 RYAN CHARLTON MD, Ot Z01.81 8 ENCOUNTER FOR OTHER PREPROCEDURAL EXAMIN 07/01/2018 RYAN CHARLTON MD Ot I10 ESSENTIAL (PRIMARY) HYPERTENSION 07/01/2018 RYAN CHARLTON MD, Ot K57.30 DVRTCLOS OF LG INT W/O PERFORATION OR AB 07/01/2018 RYAN CHARLTON MD, Ot K62.1 RECTAL POLYP 07/01/2018 RYAN CHARLTON MD, Ot K64.1 SECOND DEGREE HEMORRHOIDS 07/01/2018 RYAN CHARLTON MD, Ot N40.0 BENIGN PROSTATIC HYPERPLASIA WITHOUT LOW 07/01/2018 RYAN CHARLTON MD Ot Z12.11 ENCOUNTER FOR SCREENING FOR MALIGNANT NE 07/01/2018 RYAN CHARLTON MD Ot Z79.82 PRISON OFFICER (CURRENT) USE OF ASPIRIN 07/01/2018 RYAN CHARLTON MD Ot Z79.89 9 OTHER SENIOR CARE (CURRENT) DRUG THERAPY 07/01/2018 RYAN CHARLTON MD, Ot Z86.73 PRSNL HX OF TIA (TIA), AND CEREB INFRC W 07/01/2018 RYAN CHARLTON MD, Ot 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 07/01/2018 RYAN CHARLTON MD, Ot Z87.89 1 PERSONAL HISTORY OF NICOTINE DEPENDENCE 07/06/2018 RYAN CHARLTON MD, Ot I10 ESSENTIAL (PRIMARY) HYPERTENSION 07/06/2018 RYAN CHARLTON MD, Ot K57.30 DVRTCLOS OF LG INT W/O PERFORATION OR AB 07/06/2018 RYAN CHARLTON MD, Ot K62.1 RECTAL POLYP 07/06/2018 RYAN CHARLTON MD, Ot K64.1 SECOND DEGREE HEMORRHOIDS 07/06/2018 RYAN CHARLTON MD, Ot N40.0 BENIGN PROSTATIC HYPERPLASIA WITHOUT LOW 07/06/2018 RYAN CHARLTON MD Ot Z12.11 ENCOUNTER FOR SCREENING FOR MALIGNANT NE 07/06/2018 RYAN CHARLTON MD Ot Z79.82 PRISON OFFICER (CURRENT) USE OF ASPIRIN 07/06/2018 RYAN CHARLTON MD Ot Z79.89 9 OTHER SENIOR CARE (CURRENT) DRUG THERAPY 07/06/2018 RYAN CHARLTON MD, Ot Z86.73 PRSNL HX OF TIA (TIA), AND CEREB INFRC W 07/06/2018 RYAN CHARLTON MD, Ot 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 07/06/2018 RYAN CHARLTON MD, Ot Z87.89 1 PERSONAL HISTORY OF NICOTINE DEPENDENCE 07/21/2018 SWAPNA DAVIS MD Ot F10.10 ALCOHOL ABUSE, UNCOMPLICATED 07/21/2018 SWAPNA DAVIS MD L Ot R79.89 OTHER SPECIFIED ABNORMAL FINDINGS OF BLO 08/03/2018 SWAPNA DAVIS MD Ot F10.10 ALCOHOL ABUSE, UNCOMPLICATED 08/03/2018 SWAPNA DAVIS MD Ot R79.89 OTHER SPECIFIED ABNORMAL FINDINGS OF BLO 08/04/2018 RYAN CHARLTON MD Ot I10 ESSENTIAL (PRIMARY) HYPERTENSION 08/04/2018 RYAN CHARLTON MD Ot K57.30 DVRTCLOS OF LG INT W/O PERFORATION OR AB 08/04/2018 RYAN CHARLTON MD Ot K62.1 RECTAL POLYP 08/04/2018 RYAN CHARLTON MD Ot K64.1 SECOND DEGREE HEMORRHOIDS 08/04/2018 RYAN CHARLTON MD Ot N40.0 BENIGN PROSTATIC HYPERPLASIA WITHOUT LOW 08/04/2018 RYAN CHARLTON MD Ot Z12.11 ENCOUNTER FOR SCREENING FOR MALIGNANT NE 08/04/2018 RYAN CHARLTON MD Ot Z79.82 PRISON OFFICER (CURRENT) USE OF ASPIRIN 08/04/2018 RYAN CHARLTON MD Ot Z79.89 9 OTHER SENIOR CARE (CURRENT) DRUG THERAPY 08/04/2018 RYAN CHRALTON MD, Ot Z86.73 PRSNL HX OF TIA (TIA), AND CEREB INFRC W 08/04/2018 RYAN CHARLTON MD, Ot 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 08/04/2018 RYAN CHARLTON MD Ot Z87.89 1 PERSONAL HISTORY OF NICOTINE DEPENDENCE 12/15/2018 W 272.4 OTHE R AND UNSPECIFIED HYPERLIPIDEMIA 12/15/2018 W 401.9 UNSP ECIFIED ESSENTIAL HYPERTENSION 12/15/2018 W E78.5 HYPE RLIPIDEMIA, UNSPECIFIED 12/15/2018 W I10 ESSENT IAL (PRIMARY) HYPERTENSION 06/21/2019 SWAPNA DAVIS V70.0 ROUTINE GENERAL MEDICAL EXAMINATION AT A HEALTH CARE FACILITY 06/21/2019 SWAPNA DAVIS Z00.00 ENCOUNTER FOR GENERAL ADULT MEDICAL EXAMINATION WITHOUT ABNORMAL FINDINGS 06/21/2019 SWAPNA DAVIS V70.0 ROUTINE GENERAL MEDICAL EXAMINATION AT A HEALTH CARE FACILITY 06/21/2019 SWAPNA DAVIS Z00.00 ENCOUNTER FOR GENERAL ADULT MEDICAL EXAMINATION WITHOUT ABNORMAL FINDINGS 06/21/2019 SWAPNA DAVIS V70.0 ROUTINE GENERAL MEDICAL EXAMINATION AT A HEALTH CARE FACILITY 06/21/2019 SWAPNA DAVIS Z00.00 ENCOUNTER FOR GENERAL ADULT MEDICAL EXAMINATION WITHOUT ABNORMAL FINDINGS 06/21/2019 SWAPNA DAVIS W 401.0 MALIGNANT ESSENTIAL HYPERTENSION 06/21/2019 SWAPNA DAVIS W I10 ESSENTIAL (PRIMARY) HYPERTENSION 06/21/2019 SWAPNA DAVIS V70.0 ROUTINE GENERAL MEDICAL EXAMINATION AT A HEALTH CARE FACILITY 06/21/2019 SWAPNA DAVIS Z00.00 ENCOUNTER FOR GENERAL ADULT MEDICAL EXAMINATION WITHOUT ABNORMAL FINDINGS 06/21/2019 SWAPNA DAVIS W 401.0 MALIGNANT ESSENTIAL HYPERTENSION 06/21/2019 SWAPNA DAVIS I10 ESSENTIAL (PRIMARY) HYPERTENSION 06/21/2019 SWAPNA DAVIS V70.0 ROUTINE GENERAL MEDICAL EXAMINATION AT A HEALTH CARE FACILITY 06/21/2019 SWAPNA DAVIS Z00.00 ENCOUNTER FOR GENERAL ADULT MEDICAL EXAMINATION WITHOUT ABNORMAL FINDINGS 06/21/2019 SWAPNA DAVIS 272.4 OTHER AND UNSPECIFIED HYPERLIPIDEMIA 06/21/2019 SWAPNA DAVIS W 401.0 MALIGNANT ESSENTIAL HYPERTENSION 06/21/2019 SWAPNA DAVIS E78.5 HYPERLIPIDEMIA, UNSPECIFIED 06/21/2019 SWAPNA DAVIS W I10 ESSENTIAL (PRIMARY) HYPERTENSION 06/21/2019 SWAPNA DAVIS V70.0 ROUTINE GENERAL MEDICAL EXAMINATION AT A HEALTH CARE FACILITY 06/21/2019 SWAPNA DAVIS Z00.00 ENCOUNTER FOR GENERAL ADULT MEDICAL EXAMINATION WITHOUT ABNORMAL FINDINGS 06/21/2019 SWAPNA DAVIS W 272.4 OTHER AND UNSPECIFIED HYPERLIPIDEMIA 06/21/2019 SWAPNA DAVIS W 401.0 MALIGNANT ESSENTIAL HYPERTENSION 06/21/2019 SWAPNA DAVIS W E78.5 HYPERLIPIDEMIA, UNSPECIFIED 06/21/2019 LILLY DAVISHEL W I10 ESSENTIAL (PRIMARY) HYPERTENSION 06/21/2019 LILLY DAVISHEL W V70.0 ROUTINE GENERAL MEDICAL EXAMINATION AT A HEALTH CARE FACILITY 06/21/2019 SWAPNA DAVIS W Z00.00 ENCOUNTER FOR GENERAL ADULT MEDICAL EXAMINATION WITHOUT ABNORMAL FINDINGS 06/21/2019 DAVIS SWAPNA W 272.4 OTHER AND UNSPECIFIED HYPERLIPIDEMIA 06/21/2019 DAVIS SWAPNA W 290.4 VASCULAR DEMENTIA 06/21/2019 DAVIS SWAPNA W 401.0 MALIGNANT ESSENTIAL HYPERTENSION 06/21/2019 DAVIS SWAPNA W E78.5 HYPERLIPIDEMIA, UNSPECIFIED 06/21/2019 DAVIS SWAPNA W F01.50 VASCULAR DEMENTIA WITHOUT BEHAVIORAL DISTURBANCE 06/21/2019 LILLY DAVISHEL W I10 ESSENTIAL (PRIMARY) HYPERTENSION 06/21/2019 SWAPNA DAVIS W V70.0 ROUTINE GENERAL MEDICAL EXAMINATION AT A HEALTH CARE FACILITY 06/21/2019 DAVIS SWAPNA W Z00.00 ENCOUNTER FOR GENERAL ADULT MEDICAL EXAMINATION WITHOUT ABNORMAL FINDINGS 06/21/2019 DAVIS SWAPNA W 272.4 OTHER AND UNSPECIFIED HYPERLIPIDEMIA 06/21/2019 DAVIS SWAPNA W 290.4 VASCULAR DEMENTIA 06/21/2019 DAVIS SWAPNA W 401.0 MALIGNANT ESSENTIAL HYPERTENSION 06/21/2019 DAVIS SWAPNA W E78.5 HYPERLIPIDEMIA, UNSPECIFIED 06/21/2019 DAVIS SWAPNA W F01.50 VASCULAR DEMENTIA WITHOUT BEHAVIORAL DISTURBANCE 06/21/2019 DAVIS SWAPNA W I10 ESSENTIAL (PRIMARY) HYPERTENSION 06/21/2019 DAVIS SWAPNA W V70.0 ROUTINE GENERAL MEDICAL EXAMINATION AT A HEALTH CARE FACILITY 06/21/2019 SWAPNA DAVIS W Z00.00 ENCOUNTER FOR GENERAL ADULT MEDICAL EXAMINATION WITHOUT ABNORMAL FINDINGS 06/21/2019 DAVIS SWAPNA W 272.4 OTHER AND UNSPECIFIED HYPERLIPIDEMIA 06/21/2019 DAVIS, SWAPNA W 290.4 VASCULAR DEMENTIA 06/21/2019 DAVIS SWAPNA W 401.0 MALIGNANT ESSENTIAL HYPERTENSION 06/21/2019 DAVIS SWAPNA W E78.5 HYPERLIPIDEMIA, UNSPECIFIED 06/21/2019 DAVIS, SWAPNA W F01.50 VASCULAR DEMENTIA WITHOUT BEHAVIORAL DISTURBANCE 06/21/2019 SWAPNA DAVIS W I10 ESSENTIAL (PRIMARY) HYPERTENSION 06/21/2019 LILLY DAVISHEL W 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 06/21/2019 LILLY DAVISHEL W V70.0 ROUTINE GENERAL MEDICAL EXAMINATION AT A HEALTH CARE FACILITY 06/21/2019 LILLY DAVISMEHUL [place] Z00.00 ENCOUNTER FOR GENERAL ADULT MEDICAL EXAMINATION WITHOUT ABNORMAL FINDINGS 06/21/2019 LILLY DAVISHEL W 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 06/21/2019 RYAN SWAPNA W 272.4 OTHER AND UNSPECIFIED HYPERLIPIDEMIA 06/21/2019 DAVISSWAPNA W 290.4 VASCULAR DEMENTIA 06/21/2019 DAVIS SWAPNA W 401.0 MALIGNANT ESSENTIAL HYPERTENSION 06/21/2019 DAVIS, SWAPNA W E78.5 HYPERLIPIDEMIA, UNSPECIFIED 06/21/2019 DAVIS SWAPNA W F01.50 VASCULAR DEMENTIA WITHOUT BEHAVIORAL DISTURBANCE 06/21/2019 DAVIS SWAPNA W I10 ESSENTIAL (PRIMARY) HYPERTENSION 06/21/2019 DAVISSWAPNA MONTES W 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 06/21/2019 RYAN SWAPNA W V70.0 ROUTINE GENERAL MEDICAL EXAMINATION AT A HEALTH CARE FACILITY 06/21/2019 LILLY DAVISHEL W Z00.00 ENCOUNTER FOR GENERAL ADULT MEDICAL EXAMINATION WITHOUT ABNORMAL FINDINGS 06/21/2019 DAVIS, SWAPNA W 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 06/21/2019 RYAN SWAPNA W 272.4 OTHER AND UNSPECIFIED HYPERLIPIDEMIA 06/21/2019 DAVIS SWAPNA W 290.4 VASCULAR DEMENTIA 06/21/2019 DAVISSWAPNA MONTES W 401.0 MALIGNANT ESSENTIAL HYPERTENSION 06/21/2019 DAVIS, SWAPNA W E78.5 HYPERLIPIDEMIA, UNSPECIFIED 06/21/2019 DAVIS SWAPNA W F01.50 VASCULAR DEMENTIA WITHOUT BEHAVIORAL DISTURBANCE 06/21/2019 DAVIS SWAPNA W I10 ESSENTIAL (PRIMARY) HYPERTENSION 06/21/2019 DAVISSWAPNA MONTES W 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 06/21/2019 DAVIS SWAPNA W V70.0 ROUTINE GENERAL MEDICAL EXAMINATION AT A [facility] 06/21/2019 DAVIS, SWAPNA W Z00.00 ENCOUNTER FOR GENERAL ADULT MEDICAL EXAMINATION WITHOUT ABNORMAL FINDINGS 06/21/2019 DAVISSWAPNA MONTES 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 06/21/2019 DAVISSWAPNA MONTES W 401.0 MALIGNANT ESSENTIAL HYPERTENSION 06/21/2019 DAVISSWAPNA MONTES W I10 ESSENTIAL (PRIMARY) HYPERTENSION 06/21/2019 DAVISSWAPNA MONTES W V70.0 ROUTINE GENERAL MEDICAL EXAMINATION AT A HEALTH CARE FACILITY 06/21/2019 DAVISSWAPNA MONTES Z00.00 ENCOUNTER FOR GENERAL ADULT MEDICAL EXAMINATION WITHOUT ABNORMAL FINDINGS 06/21/2019 SWAPNA DAVIS W 272.4 OTHER AND UNSPECIFIED HYPERLIPIDEMIA 06/21/2019 SWAPNA DAVIS W 401.0 MALIGNANT ESSENTIAL HYPERTENSION 06/21/2019 DAVISSWAPNA MONTES W E78.5 HYPERLIPIDEMIA, UNSPECIFIED 06/21/2019 DAVISSWAPNA MONTES W I10 ESSENTIAL (PRIMARY) HYPERTENSION 06/21/2019 SWAPNA DAVIS W V70.0 ROUTINE GENERAL MEDICAL EXAMINATION AT A HEALTH CARE FACILITY 06/21/2019 DAVISSWAPNA MONTES Z00.00 ENCOUNTER FOR GENERAL ADULT MEDICAL EXAMINATION WITHOUT ABNORMAL FINDINGS 06/21/2019 SWAPNA DAVIS W 272.4 OTHER AND UNSPECIFIED HYPERLIPIDEMIA 06/21/2019 SWAPNA DAVIS W 290.4 VASCULAR DEMENTIA 06/21/2019 SWAPNA DAVIS W 401.0 MALIGNANT ESSENTIAL HYPERTENSION 06/21/2019 SWAPNA DAVIS W E78.5 HYPERLIPIDEMIA, UNSPECIFIED 06/21/2019 SWAPNA DAVIS W F01.50 VASCULAR DEMENTIA WITHOUT BEHAVIORAL DISTURBANCE 06/21/2019 SWAPNA DAVIS W I10 ESSENTIAL (PRIMARY) HYPERTENSION 06/21/2019 SWAPNA DAVIS W 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 06/21/2019 SWAPNA DAVIS V70.0 ROUTINE GENERAL MEDICAL EXAMINATION AT A HEALTH CARE FACILITY 06/21/2019 SWAPNA DAVIS Z00.00 ENCOUNTER FOR GENERAL ADULT MEDICAL EXAMINATION WITHOUT ABNORMAL FINDINGS 06/21/2019 SWAPNA DAVIS W 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 06/21/2019 SWAPNA DAVIS W 272.4 OTHER AND UNSPECIFIED HYPERLIPIDEMIA 06/21/2019 SWAPNA DAVIS W 401.0 MALIGNANT ESSENTIAL HYPERTENSION 06/21/2019 SWAPNA DAVIS W E78.5 HYPERLIPIDEMIA, UNSPECIFIED 06/21/2019 SWAPNA DAVIS W I10 ESSENTIAL (PRIMARY) HYPERTENSION 06/21/2019 SWAPNA DAVIS V70.0 ROUTINE GENERAL MEDICAL EXAMINATION AT A HEALTH CARE FACILITY 06/21/2019 SWAPNA DAVIS Z00.00 ENCOUNTER FOR GENERAL ADULT MEDICAL EXAMINATION WITHOUT ABNORMAL FINDINGS 01/04/2020 SWAPNA DAVIS MD Ot F10.10 ALCOHOL ABUSE, UNCOMPLICATED 01/04/2020 RYAN MAST, SWAPNA Roberts Ot R79.89 OTHER SPECIFIED ABNORMAL FINDINGS OF BLO 01/07/2020 DEREK GONZALEZ MD Ot C61 MALIGNANT NEOPLASM OF PROSTATE 01/07/2020 DEREK GONZALEZ MD Ot 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, PART UNSP, W/O PERF 01/10/2020 DEREK GONZALEZ MD Ot C61 MALIGNANT NEOPLASM OF PROSTATE 01/10/2020 DEREK GONZALEZ MD Ot 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, PART UNSP, W/O PERF 01/11/2020 DEREK GONZALEZ MD Ot C61 MALIGNANT NEOPLASM OF PROSTATE 01/11/2020 DEREK GONZALEZ MD Ot 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, PART UNSP, W/O PERF 01/17/2020 SWAPNA DAVIS MD Ot F10.10 ALCOHOL ABUSE, UNCOMPLICATED 01/17/2020 RYAN MAST, SWAPNA Roberts Ot R79.89 OTHER SPECIFIED ABNORMAL FINDINGS OF BLO 01/17/2020 DEREK GONZALEZ MD Ot C61 MALIGNANT NEOPLASM OF PROSTATE 01/17/2020 DEREK GONZALEZ MD Ot 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, PART UNSP, W/O PERF 01/18/2020 DEREK GONZALEZ MD Ot C61 MALIGNANT NEOPLASM OF PROSTATE 01/18/2020 DEREK GONZALEZ MD Ot 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, PART UNSP, W/O PERF 02/15/2020 SOLE CRUZ MD Ot C61 MALIGNANT NEOPLASM OF PROSTATE 02/15/2020 SOLE CRUZ MD Ot E11.9 TYPE 2 DIABETES MELLITUS WITHOUT COMPLIC 02/15/2020 SOLE CRUZ MD Ot E78.0 0 PURE HYPERCHOLESTEROLEMIA, UNSPECIFIED 02/15/2020 SOLE CRUZ MD Ot I10 ESSENTIAL (PRIMARY) HYPERTENSION 02/15/2020 SOLE CRUZ MD Ot Z87.8 1 PERSONAL HISTORY OF (HEALED) TRAUMATIC F 02/15/2020 SOLE CRUZ MD Ot Z87.8 20 PERSONAL HISTORY OF TRAUMATIC BRAIN INJU 02/15/2020 SOLE CRUZ MD Ot Z87.8 28 PERSONAL HISTORY OF OTH (HEALED) PHYSICA 02/15/2020 OSLE CRUZ MD Ot Z93.0 TRACHEOSTOMY STATUS 02/15/2020 SOLE CRUZ MD Ot Z93.1 GASTROSTOMY STATUS 02/15/2020 SOLE CRUZ MD Ot Z98.8 90 OTHER SPECIFIED POSTPROCEDURAL STATES 02/29/2020 SWAPNA DAVIS MD Ot F10.10 ALCOHOL ABUSE, UNCOMPLICATED 02/29/2020 SWAPNA DAVIS MD Ot R79.89 OTHER SPECIFIED ABNORMAL FINDINGS OF BLO 02/29/2020 DEREK GONZALEZ MD Ot C61 MALIGNANT NEOPLASM OF PROSTATE 02/29/2020 DEREK GONZALEZ MD Ot 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, PART UNSP, W/O PERF 02/29/2020 SOLE CRUZ MD, Ot C61 MALIGNANT NEOPLASM OF PROSTATE 02/29/2020 SOLE CRUZ MD Ot E11.9 TYPE 2 DIABETES MELLITUS WITHOUT COMPLIC 02/29/2020 SOLE CRUZ MD Ot E78.0 0 PURE HYPERCHOLESTEROLEMIA, UNSPECIFIED 02/29/2020 SOLE CRUZ MD Ot I10 ESSENTIAL (PRIMARY) HYPERTENSION 02/29/2020 SOLE CRUZ MD Ot Z87.8 1 PERSONAL HISTORY OF (HEALED) TRAUMATIC F 02/29/2020 SOLE CRUZ MD Ot Z87.8 20 PERSONAL HISTORY OF TRAUMATIC BRAIN INJU 02/29/2020 SOLE CRUZ MD Ot Z87.8 28 PERSONAL HISTORY OF OTH (HEALED) PHYSICA 02/29/2020 SOLE CRUZ MD Ot Z93.0 TRACHEOSTOMY STATUS 02/29/2020 SOLE CRUZ MD Ot Z93.1 GASTROSTOMY STATUS 02/29/2020 SOLE CRUZ MD Ot Z98.8 90 OTHER SPECIFIED POSTPROCEDURAL STATES Procedures There is no data. Results Test Result Range Capillary blood glucose measurement by g lucometer (mass/volume) - 08/22/17 16:03 Capillary blood glucose measurement by glucometer (mas s/volume) 144 mg/dL 70-110 Capillary blood glucose measurement by g lucometer (mass/volume) - 08/22/17 20:37 Capillary blood glucose measurement by glucometer (mas s/volume) 117 mg/dL 70-110 Capillary blood glucose measurement by g lucometer (mass/volume) - 08/23/17 05:37 Capillary blood glucose measurement by glucometer (mas s/volume) 81 mg/dL 70-110 Capillary blood glucose measurement by g lucometer (mass/volume) - 08/23/17 10:44 Capillary blood glucose measurement by glucometer (mas s/volume) 97 mg/dL 70-110 Capillary blood glucose measurement by g lucometer (mass/volume) - 08/23/17 15:11 Capillary blood glucose measurement by glucometer (mas s/volume) 57 mg/dL 70-110 Capillary blood glucose measurement by g lucometer (mass/volume) - 08/23/17 15:33 Capillary blood glucose measurement by glucometer (mas s/volume) 66 mg/dL 70-110 Capillary blood glucose measurement by g lucometer (mass/volume) - 08/23/17 20:23 Capillary blood glucose measurement by glucometer (mas s/volume) 129 mg/dL 70-110 Capillary blood glucose measurement by g lucometer (mass/volume) - 08/24/17 06:18 Capillary blood glucose measurement by glucometer (mas s/volume) 92 mg/dL 70-110 Capillary blood glucose measurement by g lucometer (mass/volume) - 08/24/17 11:05 Capillary blood glucose measurement by glucometer (mas s/volume) 111 mg/dL 70-110 Capillary blood glucose measurement by g lucometer (mass/volume) - 08/24/17 16:15 Capillary blood glucose measurement by glucometer (mas s/volume) 57 mg/dL 70-110 Capillary blood glucose measurement by g lucometer (mass/volume) - 08/24/17 17:14 Capillary blood glucose measurement by glucometer (mas s/volume) 95 mg/dL 70-110 Capillary blood glucose measurement by g lucometer (mass/volume) - 08/24/17 20:24 Capillary blood glucose measurement by glucometer (mas s/volume) 86 mg/dL 70-110 Capillary blood glucose measurement by g lucometer (mass/volume) - 08/25/17 04:44 Capillary blood glucose measurement by glucometer (mas s/volume) 91 mg/dL 70-110 Capillary blood glucose measurement by g lucometer (mass/volume) - 08/25/17 10:50 Capillary blood glucose measurement by glucometer (mas s/volume) 136 mg/dL 70-110 Capillary blood glucose measurement by g lucometer (mass/volume) - 08/25/17 16:16 Capillary blood glucose measurement by glucometer (mas s/volume) 101 mg/dL 70-110 Capillary blood glucose measurement by g lucometer (mass/volume) - 08/25/17 20:03 Capillary blood glucose measurement by glucometer (mas s/volume) 144 mg/dL 70-110 Capillary blood glucose measurement by g lucometer (mass/volume) - 08/26/17 05:04 Capillary blood glucose measurement by glucometer (mas s/volume) 91 mg/dL 70-110 Capillary blood glucose measurement by g lucometer (mass/volume) - 08/26/17 11:02 Capillary blood glucose measurement by glucometer (mas s/volume) 124 mg/dL 70-110 Blood CBC with ordered manual differenti al panel - 08/26/17 11:38 Blood leukocytes automated count (number/volume) 6.1 10*3/uL 4.3-11.0 Blood erythrocytes automated count (number/volume) 3.59 10*6/uL 4.35-5.85 Venous blood hemoglobin measurement (mass/volume) 10.4 g/dL 13.3-17.7 Blood hematocrit (volume fraction) 32 % 40-54 Automated erythrocyte mean corpuscular volume 90 [ foz_us] 80-99 Automated erythrocyte mean corpuscular h emoglobin (mass per erythrocyte) 29 pg 25-34 Automated erythrocyte mean corpuscular h emoglobin concentration measurement (mass/volume) 32 g/dL 32-36 Automated erythrocyte distribution width ratio 14. 5 % 10.0- 14.5 Automated blood platelet count (count/volume) 290 10*3/uL 130-400 Automated blood platelet mean volume measurement 9.0 [foz_us] 7.4-10.4 Automated blood neutrophils/100 leukocytes 52 % 42-75 Automated blood lymphocytes/100 leukocytes 29 % 12-44 Blood monocytes/100 leukocytes 7 % NRG Automated blood eosinophils/100 leukocytes 7 % 0-10 Automated blood basophils/100 leukocytes 1 % 0-10 Blood neutrophils automated count (number/volume) 3.2 10*3 1.8-7.8 Blood lymphocytes automated count (number/volume) 1.8 10*3 1.0-4.0 Blood monocytes automated count (number/volume) 0. 7 10*3 0.0-1.0 Automated eosinophil count 0.4 10*3/uL 0 .0-0.3 Automated blood basophil count (count/volume) 0.0 10*3/uL 0.0-0.1 Manual blood segmented neutrophils/100 leukocytes 56 % NRG Manual blood lymphocytes/100 leukocytes 32 % NRG Manual eosinophils/100 leukocytes in nose 5 % NRG Whole blood basic metabolic panel - 08/07 10/22 11:38 Serum or plasma sodium measurement (moles/volume) 138 mmol/L 135-145 Serum or plasma potassium measurement (moles/volume) 4.5 mmol/L 3.6-5.0 Serum or plasma chloride measurement (moles/volume) 105 mmol/L 98-107 Carbon dioxide 22 mmol/L 21-32 Serum or plasma anion gap determination (moles/volume) 11 mmol/L 5-14 Serum or plasma urea nitrogen measurement (mass/volume ) 15 mg/dL 7-18 Serum or plasma creatinine measurement (mass/volume) 0.73 mg/dL 0.60-1.30 Serum or plasma urea nitrogen/creatinine mass ratio 21 NRG Serum or plasma creatinine measurement w ith calculation of estimated glomerular filtration rate > NRG Serum or plasma glucose measurement (mass/volume) 104 mg/dL 70-105 Serum or plasma calcium measurement (mass/volume) 10.0 mg/dL 8.5-10.1 Liver function panel (serum or plasma al k phos, alb, total and direct bili, total protein, ALT, AST) - 08/26/17 11:38 Serum or plasma total bilirubin measurement (mass/volu me) 0.8 mg/dL 0.1-1.0 Serum or plasma alkaline phosphatase jalne surement (enzymatic activity/volume) 130 U/L 40-136 Serum or plasma aspartate aminotransfera se measurement (enzymatic activity/volume) 28 U/L 5-34 Serum or plasma alanine aminotransferase measurement (enzymatic activity/volume) 33 U/L 0-55 Serum or plasma protein measurement (mass/volume) 7.7 g/dL 6.4-8.2 Serum or plasma albumin measurement (mass/volume) 3.8 g/dL 3.2-4.5 Bilirubin direct 0.3 mg/dL 0.0-0.3 Serum or plasma indirect bilirubin measurement (mass/v olume) 0.5 mg/dL NRG Capillary blood glucose measurement by g lucometer (mass/volume) - 08/26/17 16:14 Capillary blood glucose measurement by glucometer (mas s/volume) 94 mg/dL 70-110 Complete urinalysis with reflex to cultu re - 08/26/17 17:48 Urine color determination YELLOW NRG Urine clarity determination CLEAR NR G Urine pH measurement by test strip 5 5-9 Specific gravity of urine by test strip 1.025 1.016-1.022 Urine protein assay by test strip, semi-quantitative 1+ NEGATIVE Urine glucose detection by automated test strip NE GATIVE NEGATIVE Erythrocytes detection in urine sediment by light micr oscopy NEGATIVE NEGATIVE Urine ketones detection by automated test strip NE GATIVE NEGATIVE Urine nitrite detection by test strip NEGATIVE NEGATIVE Urine total bilirubin detection by test strip NEGA TIVE NEGATIVE Urine urobilinogen measurement by automated test strip (mass/volume) NORMAL NORMAL Urine leukocyte esterase detection by dipstick NEG ATIVE NEGATIVE Automated urine sediment erythrocyte cou nt by microscopy (number/high power field) NONE NRG Automated urine sediment leukocyte count by microscopy (number/high power field) [HPF] NRG Bacteria detection in urine sediment by light microsco py NONE NRG Crystals detection in urine sediment by light microsco py NONE NRG Casts detection in urine sediment by light microscopy PRESENT NRG Mucus detection in urine sediment by light microscopy NEGATIVE NRG Complete urinalysis with reflex to culture NO NRG Hyaline casts detection in urine sediment by light amber roscopy 25-50 NRG Capillary blood glucose measurement by g lucometer (mass/volume) - 08/26/17 20:23 Capillary blood glucose measurement by glucometer (mas s/volume) 105 mg/dL 70-110 Capillary blood glucose measurement by g lucometer (mass/volume) - 08/27/17 05:36 Capillary blood glucose measurement by glucometer (mas s/volume) 91 mg/dL 70-110 Ammonia - 08/27/17 07:18 Ammonia 15 umol/L 11-32 Capillary blood glucose measurement by g lucometer (mass/volume) - 08/27/17 10:59 Capillary blood glucose measurement by glucometer (mas s/volume) 90 mg/dL 70-110 Capillary blood glucose measurement by g lucometer (mass/volume) - 08/27/17 16:00 Capillary blood glucose measurement by glucometer (mas s/volume) 56 mg/dL 70-110 Capillary blood glucose measurement by g lucometer (mass/volume) - 08/27/17 16:21 Capillary blood glucose measurement by glucometer (mas s/volume) 72 mg/dL 70-110 Capillary blood glucose measurement by g lucometer (mass/volume) - 08/27/17 20:31 Capillary blood glucose measurement by glucometer (mas s/volume) 132 mg/dL 70-110 Capillary blood glucose measurement by g lucometer (mass/volume) - 08/28/17 04:46 Capillary blood glucose measurement by glucometer (mas s/volume) 105 mg/dL 70-110 Capillary blood glucose measurement by g lucometer (mass/volume) - 08/28/17 11:00 Capillary blood glucose measurement by glucometer (mas s/volume) 114 mg/dL 70-110 Capillary blood glucose measurement by g lucometer (mass/volume) - 08/28/17 15:32 Capillary blood glucose measurement by glucometer (mas s/volume) 105 mg/dL 70-110 Capillary blood glucose measurement by g lucometer (mass/volume) - 08/28/17 22:14 Capillary blood glucose measurement by glucometer (mas s/volume) 104 mg/dL 70-110 Capillary blood glucose measurement by g lucometer (mass/volume) - 08/29/17 06:48 Capillary blood glucose measurement by glucometer (mas s/volume) 98 mg/dL 70-110 Capillary blood glucose measurement by g lucometer (mass/volume) - 08/29/17 11:01 Capillary blood glucose measurement by glucometer (mas s/volume) 166 mg/dL 70-110 Capillary blood glucose measurement by g lucometer (mass/volume) - 08/29/17 15:24 Capillary blood glucose measurement by glucometer (mas s/volume) 91 mg/dL 70-110 Capillary blood glucose measurement by g lucometer (mass/volume) - 08/29/17 21:00 Capillary blood glucose measurement by glucometer (mas s/volume) 107 mg/dL 70-110 Capillary blood glucose measurement by g lucometer (mass/volume) - 08/30/17 06:13 Capillary blood glucose measurement by glucometer (mas s/volume) 104 mg/dL 70-110 Capillary blood glucose measurement by g lucometer (mass/volume) - 08/30/17 11:17 Capillary blood glucose measurement by glucometer (mas s/volume) 125 mg/dL 70-110 Capillary blood glucose measurement by g lucometer (mass/volume) - 08/30/17 16:13 Capillary blood glucose measurement by glucometer (mas s/volume) 101 mg/dL 70-110 Capillary blood glucose measurement by g lucometer (mass/volume) - 08/30/17 20:05 Capillary blood glucose measurement by glucometer (mas s/volume) 129 mg/dL 70-110 Capillary blood glucose measurement by g lucometer (mass/volume) - 08/31/17 05:04 Capillary blood glucose measurement by glucometer (mas s/volume) 102 mg/dL 70-110 Capillary blood glucose measurement by g lucometer (mass/volume) - 08/31/17 11:33 Capillary blood glucose measurement by glucometer (mas s/volume) 136 mg/dL 70-110 Capillary blood glucose measurement by g lucometer (mass/volume) - 08/31/17 16:21 Capillary blood glucose measurement by glucometer (mas s/volume) 100 mg/dL 70-110 Capillary blood glucose measurement by g lucometer (mass/volume) - 08/31/17 21:01 Capillary blood glucose measurement by glucometer (mas s/volume) 106 mg/dL 70-110 Capillary blood glucose measurement by g lucometer (mass/volume) - 09/01/17 06:41 Capillary blood glucose measurement by glucometer (mas s/volume) 88 mg/dL 70-110 Capillary blood glucose measurement by g lucometer (mass/volume) - 09/01/17 11:00 Capillary blood glucose measurement by glucometer (mas s/volume) 100 mg/dL 70-110 Capillary blood glucose measurement by g lucometer (mass/volume) - 09/01/17 16:39 Capillary blood glucose measurement by glucometer (mas s/volume) 105 mg/dL 70-110 Capillary blood glucose measurement by g lucometer (mass/volume) - 09/01/17 20:23 Capillary blood glucose measurement by glucometer (mas s/volume) 116 mg/dL 70-110 Capillary blood glucose measurement by g lucometer (mass/volume) - 09/02/17 06:25 Capillary blood glucose measurement by glucometer (mas s/volume) 98 mg/dL 70-110 Capillary blood glucose measurement by g lucometer (mass/volume) - 09/02/17 10:58 Capillary blood glucose measurement by glucometer (mas s/volume) 187 mg/dL 70-110 Capillary blood glucose measurement by g lucometer (mass/volume) - 09/02/17 15:42 Capillary blood glucose measurement by glucometer (mas s/volume) 104 mg/dL 70-110 Capillary blood glucose measurement by g lucometer (mass/volume) - 09/02/17 21:03 Capillary blood glucose measurement by glucometer (mas s/volume) 116 mg/dL 70-110 Capillary blood glucose measurement by g lucometer (mass/volume) - 09/03/17 06:31 Capillary blood glucose measurement by glucometer (mas s/volume) 97 mg/dL 70-110 Capillary blood glucose measurement by g lucometer (mass/volume) - 09/03/17 11:26 Capillary blood glucose measurement by glucometer (mas s/volume) 127 mg/dL 70-110 Capillary blood glucose measurement by g lucometer (mass/volume) - 09/03/17 15:55 Capillary blood glucose measurement by glucometer (mas s/volume) 95 mg/dL 70-110 Capillary blood glucose measurement by g lucometer (mass/volume) - 09/03/17 20:57 Capillary blood glucose measurement by glucometer (mas s/volume) 111 mg/dL 70-110 Capillary blood glucose measurement by g lucometer (mass/volume) - 09/04/17 05:53 Capillary blood glucose measurement by glucometer (mas s/volume) 93 mg/dL 70-110 Capillary blood glucose measurement by g lucometer (mass/volume) - 09/04/17 10:41 Capillary blood glucose measurement by glucometer (mas s/volume) 132 mg/dL 70-110 Capillary blood glucose measurement by g lucometer (mass/volume) - 09/04/17 15:17 Capillary blood glucose measurement by glucometer (mas s/volume) 96 mg/dL 70-110 Capillary blood glucose measurement by g lucometer (mass/volume) - 09/04/17 20:41 Capillary blood glucose measurement by glucometer (mas s/volume) 128 mg/dL 70-110 Capillary blood glucose measurement by g lucometer (mass/volume) - 09/05/17 06:34 Capillary blood glucose measurement by glucometer (mas s/volume) 87 mg/dL 70-110 Capillary blood glucose measurement by g lucometer (mass/volume) - 09/05/17 10:54 Capillary blood glucose measurement by glucometer (mas s/volume) 96 mg/dL 70-110 Capillary blood glucose measurement by g lucometer (mass/volume) - 09/05/17 15:53 Capillary blood glucose measurement by glucometer (mas s/volume) 107 mg/dL 70-110 Capillary blood glucose measurement by g lucometer (mass/volume) - 09/05/17 21:14 Capillary blood glucose measurement by glucometer (mas s/volume) 108 mg/dL 70-110 Capillary blood glucose measurement by g lucometer (mass/volume) - 09/06/17 05:28 Capillary blood glucose measurement by glucometer (mas s/volume) 93 mg/dL 70-110 Capillary blood glucose measurement by g lucometer (mass/volume) - 09/06/17 11:03 Capillary blood glucose measurement by glucometer (mas s/volume) 111 mg/dL 70-110 Capillary blood glucose measurement by g lucometer (mass/volume) - 09/06/17 16:03 Capillary blood glucose measurement by glucometer (mas s/volume) 93 mg/dL 70-110 Capillary blood glucose measurement by g lucometer (mass/volume) - 09/06/17 20:16 Capillary blood glucose measurement by glucometer (mas s/volume) 136 mg/dL 70-110 Capillary blood glucose measurement by g lucometer (mass/volume) - 09/07/17 05:57 Capillary blood glucose measurement by glucometer (mas s/volume) 85 mg/dL 70-110 Capillary blood glucose measurement by g lucometer (mass/volume) - 09/07/17 11:06 Capillary blood glucose measurement by glucometer (mas s/volume) 96 mg/dL 70-110 Capillary blood glucose measurement by g lucometer (mass/volume) - 09/07/17 15:50 Capillary blood glucose measurement by glucometer (mas s/volume) 98 mg/dL 70-110 Capillary blood glucose measurement by g lucometer (mass/volume) - 09/07/17 21:30 Capillary blood glucose measurement by glucometer (mas s/volume) 121 mg/dL 70-110 Capillary blood glucose measurement by g lucometer (mass/volume) - 09/08/17 06:21 Capillary blood glucose measurement by glucometer (mas s/volume) 91 mg/dL 70-110 Capillary blood glucose measurement by g lucometer (mass/volume) - 09/08/17 11:07 Capillary blood glucose measurement by glucometer (mas s/volume) 110 mg/dL 70-110 Capillary blood glucose measurement by g lucometer (mass/volume) - 10/01/17 10:45 Capillary blood glucose measurement by glucometer (mas s/volume) 99 mg/dL 70-110 Complete blood count (CBC) with automate d white blood cell (WBC) differential - 10/01/17 10:50 Blood leukocytes automated count (number/volume) 4.2 10*3/uL 4.3-11.0 Blood erythrocytes automated count (number/volume) 4.34 10*6/uL 4.35-5.85 Venous blood hemoglobin measurement (mass/volume) 12.0 g/dL 13.3-17.7 Blood hematocrit (volume fraction) 37 % 40-54 Automated erythrocyte mean corpuscular volume 86 [ foz_us] 80-99 Automated erythrocyte mean corpuscular h emoglobin (mass per erythrocyte) 28 pg 25-34 Automated erythrocyte mean corpuscular h emoglobin concentration measurement (mass/volume) 32 g/dL 32-36 Automated erythrocyte distribution width ratio 14. 6 % 10.0- 14.5 Automated blood platelet count (count/volume) 173 10*3/uL 130-400 Automated blood platelet mean volume measurement 9.5 [foz_us] 7.4-10.4 Automated blood neutrophils/100 leukocytes 42 % 42-75 Automated blood lymphocytes/100 leukocytes 43 % 12-44 Blood monocytes/100 leukocytes 11 % 0-12 Automated blood eosinophils/100 leukocytes 5 % 0-10 Automated blood basophils/100 leukocytes 1 % 0-10 Blood neutrophils automated count (number/volume) 1.8 10*3 1.8-7.8 Blood lymphocytes automated count (number/volume) 1.8 10*3 1.0-4.0 Blood monocytes automated count (number/volume) 0. 5 10*3 0.0-1.0 Automated eosinophil count 0.2 10*3/uL 0 .0-0.3 Automated blood basophil count (count/volume) 0.0 10*3/uL 0.0-0.1 PT panel in platelet poor plasma by coag ulation assay - 10/01/17 10:50 Prothrombin time (PT) in platelet poor plasma by coagu lation assay 13.4 s 12.2-14.7 INR in platelet poor plasma or blood by coagulation as say 1.0 0.8-1.4 Activated partial thromboplastin time (a PTT) in platelet poor plasma bycoagulation assay - 10/01/17 10:50 Activated partial thromboplastin time (a PTT) in platelet poor plasma bycoagulation assay 31 s 24-35 Fibrin D-dimer FEU measurement in platel et poor plasma (mass/volume) - 10/01/17 10:50 Fibrin D-dimer FEU measurement in platelet poor plasma (mass/volume) 1.16 ug/mL 0.00-0.49 Comprehensive metabolic panel - 10/01/17 10:50 Serum or plasma sodium measurement (moles/volume) 142 mmol/L 135-145 Serum or plasma potassium measurement (moles/volume) 4.4 mmol/L 3.6-5.0 Serum or plasma chloride measurement (moles/volume) 108 mmol/L 98-107 Carbon dioxide 23 mmol/L 21-32 Serum or plasma anion gap determination (moles/volume) 11 mmol/L 5-14 Serum or plasma urea nitrogen measurement (mass/volume ) 16 mg/dL 7-18 Serum or plasma creatinine measurement (mass/volume) 0.90 mg/dL 0.60-1.30 Serum or plasma urea nitrogen/creatinine mass ratio 18 NRG Serum or plasma creatinine measurement w ith calculation of estimated glomerular filtration rate > NRG Serum or plasma glucose measurement (mass/volume) 103 mg/dL 70-105 Serum or plasma calcium measurement (mass/volume) 10.0 mg/dL 8.5-10.1 Serum or plasma total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
--- NOTE | 2020-03-08 06:57 | Progress Note-Pre Operative ---
Pre-Operative Progress Note H&P Reviewed The H&P was reviewed, patient examined and no changes noted. Date Seen by Provider: Mar 08, 2020 Time Seen by Provider: 06:57 Date H&P Reviewed: Mar 08, 2020 Time H&P Reviewed: 06:57 Pre-Operative Diagnosis: CA PROSTATE DEREK GONZALEZ MD Mar 08, 2020 06:57
--- NOTE | 2020-03-08 07:06 | Progress Note-Post Operative ---
Post-Operative Progess Note Surgeon (s)/Mixing Picker Tender (s) Surgeon DEREK GONZALEZ MD Mixing Picker Tender: Vinh CRUZ Pre-Operative Diagnosis CA PROSTATE Post-Operative Diagnosis SAME Procedure & Operative Findings Date of Procedure 03/08/20 Procedure Performed/Findings PLACEMENT OF SPACE OAR Anesthesia Type GENERAL Estimated Blood Loss Estimated blood loss (mL): NEGLIGIBLE Specimens/Packing Specimens Removed NONE Packing: NONE DEREK GONZALEZ MD Mar 08, 2020 07:06
[2020-03-08] MEDS ORDERED: LACTATED RINGERS 1,000 ML IV PRN (07:07)
--- NOTE | 2020-03-08 07:07 | Discharge Inst-Urology ---
Discharge Inst-Urology Reconcile Patient Problems Problems Reviewed?: Yes Final Diagnosis CA PROSTATE Patient Instructions/Follow Up Plan/Assessment/Instructions Please make appointment to been seen in office in 4 weeks. In 48 hours, if no bleeding, may resume ASA Increase oral fluids for 48 hours and then as needed. Diet and Activity as tolerated. If questions or concerns contact your physician Or seek help at emergency department. DEREK GONZALEZ MD Mar 08, 2020 07:07
[2020-03-08] MEDS ORDERED: LEVOFLOXACIN 500 MG/100 ML IV 100 ML IV ONE (07:15)
[2020-03-08] MEDS ORDERED: CATHETER FLUSH 10 ML SYR IV PRN (07:30)
[2020-03-08] MEDS ORDERED: PHEN-640 PO (08:04)
[2020-03-08] MEDS ORDERED: SULF1TAB35 PO (08:04)
[2020-03-08] MEDS ORDERED: SEVOFLURANE (ULTANE) 15 ML INHAL SOLN ONE ×2 (08:48→09:28)
[2020-03-08] MEDS ORDERED: ONDANSETRON 4 MG/2 ML (SDV) Z0FRAN ONE (08:48)
[2020-03-08] MEDS ORDERED: LIDOCAINE PF 2% 5 ML (XYLOCAINE) VIAL ONE (08:48)
[2020-03-08] MEDS ORDERED: proPOfol 200 MG/20 ML (DIPRIVAN) VIAL IV ONE (08:48)
[2020-03-08] MEDS ORDERED: DEXAMETHASONE 10 MG/ML (DECADRON) 1 ML VIAL ONE (08:48)
[2020-03-08] MEDS ORDERED: MIDAZOLAM 2 MG/2 ML (VERSED) VIAL ONE (08:49)
[2020-03-08] MEDS ORDERED: fentaNYL INJECTION 100 MCG/2 ML AMP ONE (08:49)
[2020-03-08] MEDS ORDERED: BACITRACIN OINTMENT 28 GM TUBE ONE (08:55)
--- NOTE | 2020-03-08 12:52 | Anesthesia-General Post-Op ---
General Patient Condition Mental Status/LOC: Same as Preop Cardiovascular: Satisfactory Nausea/Vomiting: Absent Respiratory: Satisfactory Pain: Controlled Complications: Absent Post Op Complications Complications None Follow Up Care/Instructions Patient Instructions None needed. Anesthesia/Patient Condition Patient Condition Patient is doing well, no complaints, stable vital signs, no apparent adverse anesthesia problems. No complications reported per nursing. JOI STEINER CRNA Mar 08, 2020 12:52
== END 2020-03-08 11:15 | disposition home or self-care (01) ==
LOC: SDC 06:41
PROVIDERS: ATTEND Urology
DX: C61 Malignant neoplasm of prostate (principal); I10 Essential (primary) hypertension; E78.5 Hyperlipidemia, unspecified; G93.40 Encephalopathy, unspecified; E78.00 Pure hypercholesterolemia, unspecified; Z80.42 Family history of malignant neoplasm of prostate; Z87.891 Personal history of nicotine dependence; Z79.82 Long term (current) use of aspirin; Z79.899 Other long term (current) drug therapy; Z87.820 Personal history of traumatic brain injury

== ENCOUNTER → 2020-04-25 | Outpatient (RCR) | payer MEDICARE ==
[~2020-04-25] MED LIST changes: +PHEN-640 PO; +SULF1TAB35 PO
== END | disposition still patient (30) ==
LOC: ONC 01-26 12:28
PROVIDERS: ATTEND Radiology Radiation Oncology
DX: C61 Malignant neoplasm of prostate (principal); I10 Essential (primary) hypertension; E78.00 Pure hypercholesterolemia, unspecified; E11.9 Type 2 diabetes mellitus without complications; Z87.820 Personal history of traumatic brain injury; Z93.0 Tracheostomy status; Z93.1 Gastrostomy status; Z87.828 Personal history of other (healed) physical injury and trauma; Z98.890 Other specified postprocedural states; Z87.81 Personal history of (healed) traumatic fracture
CPT/HCPCS: 99204

== ENCOUNTER 2020-07-18 09:54 | Outpatient (RCR) | payer MEDICARE ==
[~2020-07-18 09:54] MED LIST changes: +CLN.1T PEG; +CLN.1T PO; -CLON0.1T PEG; -CLON0.1T PO
== END 2020-08-08 | disposition home or self-care (01) ==
LOC: ONC 09:54
PROVIDERS: ATTEND Radiology Radiation Oncology
DX: Z51.0 Encounter for antineoplastic radiation therapy (principal); C61 Malignant neoplasm of prostate; I10 Essential (primary) hypertension; E78.00 Pure hypercholesterolemia, unspecified; E11.9 Type 2 diabetes mellitus without complications; Z87.820 Personal history of traumatic brain injury; Z93.0 Tracheostomy status; Z93.1 Gastrostomy status; Z87.828 Personal history of other (healed) physical injury and trauma; Z98.890 Other specified postprocedural states; Z87.81 Personal history of (healed) traumatic fracture
CPT/HCPCS: 77300; 77301; 77336; 77338; 77385; 77402

== ENCOUNTER 2020-09-14 13:29 | Outpatient (RCR) | payer MEDICARE | END 2020-12-13 | disposition home or self-care (01) | LOC: ONC 13:29 | PROVIDERS: ATTEND Radiology Radiation Oncology | DX: Z51.0 Encounter for antineoplastic radiation therapy (principal); C61 Malignant neoplasm of prostate; I10 Essential (primary) hypertension; E78.00 Pure hypercholesterolemia, unspecified; E11.9 Type 2 diabetes mellitus without complications; Z87.820 Personal history of traumatic brain injury; Z93.0 Tracheostomy status; Z93.1 Gastrostomy status; Z87.828 Personal history of other (healed) physical injury and trauma; Z98.890 Other specified postprocedural states; Z87.81 Personal history of (healed) traumatic fracture | CPT/HCPCS: 84153; G0463; 99213 ==

== ENCOUNTER 2021-05-31 09:47 | Emergency (ER) | payer MEDICARE ==
[~2021-05-31] VITALS: Ht 167 cm; Wt 77.0 kg
[~2021-05-31 09:47] MED LIST changes: +ACET160E28 PEG; -ACET160E50 PEG; -SULF1TAB35 PO; +SULF1TAB38 PO
[2021-05-31] MEDS ORDERED: NS IV 1000 ML 1,000 ML ONE (10:04)
[2021-05-31] MEDS ORDERED: ONDANSETRON 4 MG/2 ML (SDV) Z0FRAN ONE (10:04)
[2021-05-31 10:13] LABS: BASOPHILS % (AUTO) 1 % (0-10); EOSINOPHILS % (AUTO) 0 % (0-10); HEMATOCRIT 45 % (40-54); HEMOGLOBIN 14.8 g/dL (13.3-17.7); LYMPHOCYTES % (AUTO) 13 % (12-44); MEAN CORPUSCULAR HEMOGLOBIN 31 pg (25-34); MEAN CORPUSCULAR HGB CONC 33 g/dL (32-36); MEAN CORPUSCULAR VOLUME 93 fL (80-99); MEAN PLATELET VOLUME 9.2 fL (9.0-12.2); MONOCYTES # (AUTO) 0.5 10^3/uL (0.0-1.0); MONOCYTES % (AUTO) 7 % (0-12); NEUTROPHILS # (AUTO) 6.2 10^3/uL (1.8-7.8); NEUTROPHILS % (AUTO) 79 % (42-75); PLATELET COUNT 163 10^3/uL (130-400); WHITE BLOOD COUNT 7.9 10^3/uL (4.3-11.0)
[2021-05-31] MEDS ORDERED: ONDANSETRON 4 MG/2 ML (SDV) Z0FRAN IVP ONE (10:15)
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
[2021-05-31 10:55] LABS: ALANINE AMINOTRANSFERASE 25 U/L (0-55); ALBUMIN 4.6 GM/DL (3.2-4.5); ALKALINE PHOSPHATASE 73 U/L (40-136); BILIRUBIN,TOTAL 1.9 MG/DL (0.1-1.0); BUN/CREATININE RATIO 18; CALCIUM 9.9 MG/DL (8.5-10.1); CARBON DIOXIDE 21 MMOL/L (21-32); CHLORIDE 112 MMOL/L (98-107); CREATININE SERUM 1.36 MG/DL (0.60-1.30); GFR ESTIMATED 51; GLUCOSE 141 MG/DL (70-105); LIPASE 29 U/L (8-78); POTASSIUM 4.2 MMOL/L (3.6-5.0); SODIUM 144 MMOL/L (135-145); TOTAL PROTEIN 8.2 GM/DL (6.4-8.2)
--- NOTE | 2021-05-31 11:14 | Diagnostic Imaging Report ---
INDICATION: Nausea and vomiting. FINDINGS: The lungs are clear. There is no failure pattern, effusion, or pneumothorax. The heart size and vascularity are within normal limits. There is no free air beneath the diaphragms. IMPRESSION: No acute appearing abnormality. Dictated by: Dictated on workstation # [id number]
[2021-05-31 11:37] LABS: BILIRUBIN,URINE NEGATIVE (NEGATIVE); CLARITY,URINE CLEAR; COLOR,URINE YELLOW; GLUCOSE, URINE (UA) NEGATIVE (NEGATIVE); KETONES,URINE NEGATIVE (NEGATIVE); LEUKOCYTE ESTERASE ,URINE NEGATIVE (NEGATIVE); NITRITE,URINE NEGATIVE (NEGATIVE); PROTEIN,URINE 1+ (NEGATIVE)
[2021-05-31 11:45] LABS: BACTERIA,URINE TRACE /HPF; HYALINE CASTS, URINE 0-2 /LPF; RBC,URINE RARE /HPF; SQUAMOUS EPITHELIAL CELL,UR RARE /HPF; WBC,URINE RARE /HPF
--- NOTE | 2021-05-31 11:48 | Diagnostic Imaging Report ---
PROCEDURE: CT head without contrast. TECHNIQUE: Multiple contiguous axial images were obtained through the brain without the use of intravenous contrast. Auto Exposure Controls were utilized during the CT exam to meet ALARA standards for radiation dose reduction. INDICATION: Acute confusion COMPARISON: 10/01/2017 Ventricles and sulci are diffusely enlarged. There is extensive low-density in deep white matter of both hemispheres. Focal lucencies are seen in the thalami compatible with old lacunar infarcts. There does appear to be hyperdensity of the right middle cerebral artery however this was present on the previous study as well. There is no evidence of hemorrhage. No geographic low density seen to indicate territorial infarct. Calvarium is intact and visualized paranasal sinuses are clear. IMPRESSION: Extensive chronic findings throughout the brain likely related to chronic microvascular ischemia. There is hyperdensity in the right middle cerebral artery which can be related to thrombosis however this appears to be chronic in nature. Clinical correlation is recommended. This could be further assessed with CTA or MRI of the head. Dictated by: Dictated on workstation # [id number]
--- NOTE | 2021-05-31 11:48 | Diagnostic Imaging Report ---
PROCEDURE: CT abdomen and pelvis without contrast. TECHNIQUE: Multiple contiguous axial images were obtained through the abdomen and pelvis without the use of intravenous contrast. Auto Exposure Controls were utilized during the CT exam to meet ALARA standards for radiation dose reduction. INDICATION: Nausea and vomiting and abdominal pain. COMPARISON: Correlation is made with prior CT from 01/06/2020. FINDINGS: There is some linear atelectasis or scarring in the right middle lobe. There is some scarring in the right lower lobe with old healed right-sided lower posterior rib fractures. Liver and gallbladder are unremarkable. There is no biliary ductal dilatation. The pancreas and spleen are unremarkable. No adrenal mass is detected. No renal calculi or hydronephrosis is seen. Aorta is heavily calcified but nonaneurysmal. No central retroperitoneal or mesenteric lymphadenopathy is seen. Bowel loops are normal in caliber. There is generalized colonic diverticulosis but no evidence of acute diverticulitis. No iliac or inguinal lymphadenopathy is seen. Prostate and bladder are unremarkable. Chronic compression deformities of L3 and L5 appear stable. IMPRESSION: Stable noncontrast CT abdomen and pelvis study when compared with exam from 01/06/2020. No acute feature is detected. Dictated by: Dictated on workstation # [id number]
[2021-05-31] MEDS ORDERED: CATHETER FLUSH 10 ML SYR IV PRN (12:00)
[2021-05-31] MEDS ORDERED: IOHEXOL 350 MG/ML 100 ML (OMNIPAQUE 350) VIAL IV ONE (12:00)
[2021-05-31] MEDS ORDERED: HOLD METFORMIN - RECEIVED CONTRAST 20 ML VIAL IV SCH (12:00)
[2021-05-31] MEDS ORDERED: NS 100 ML (IVPB) BAG IV ONE (12:00)
--- NOTE | 2021-05-31 13:41 | Diagnostic Imaging Report ---
PROCEDURE: CT angiography of the head and CT angiography of the neck with and without contrast. TECHNIQUE: Contiguous noncontrast images were obtained from the skull base through the vertex. After intravenous contrast administration, helical CT angiography of the neck was performed. Source data was reformatted into 3D MIP projections. Delayed post contrast acquisition was also obtained. Auto Exposure Controls were utilized during the CT exam to meet ALARA standards for radiation dose reduction. INDICATION: Confusion. FINDINGS: The CT head exam performed prior to this study failed to show any sign of an acute intracranial abnormality. There did appear to be hyperdensity in the right middle cerebral artery, but this finding seemed to be chronic in nature. The images of the intracranial circulation show no evidence for a large vessel occlusion. In particular, there is no sign of thrombus formation involving the middle cerebral artery on the right. There is no evidence for an aneurysm of the [place] either. The right posterior cerebral artery is diminutive, and there does seem to be a prominent branch arising from the right anterior cerebral artery to compensate for the small size of the posterior cerebral artery. There is atherosclerotic disease involving both carotid bifurcations, but there is no evidence for a hemodynamically significant stenosis. Both vertebral arteries were opacified. The left vertebral artery is dominant. There is no mass or adenopathy involving the neck. The thyroid gland is generally unremarkable. The lung apices are generally clear. There is a small 5 mm pleural-based nodule along the posterior aspect of the right upper lobe. IMPRESSION: 1. There is no evidence for a large vessel occlusion, and there is no sign of an aneurysm of the [place]. If clinical concern regarding an acute intracranial abnormality persists, however, then MRI would be recommended for further study. 2. There is atherosclerotic disease involving both carotid bifurcations, but there is no evidence for a hemodynamically significant stenosis. 3. The vertebral arteries are opacified, and the left vertebral artery is dominant. 4. There is a small benign-appearing nodular density along the posterior aspect of the right upper lung. If the patient has a significant smoking history (greater than 32-nido-winn smoking history), then CT of the chest would be recommended for further study. 5. These results were discussed with Rodrigo Stephens APRN. Dictated by: Dictated on workstation # [id number]
[2021-05-31 13:42] VITALS: BP 144/83
== END 2021-05-31 13:42 | disposition home or self-care (01) ==
LOC: EDUNIT# 09:47 → ER 09:49
DX: R44.1 Visual hallucinations (principal); I10 Essential (primary) hypertension; Z86.73 Personal history of transient ischemic attack (TIA), and cerebral infarction without residual deficits; Z20.822 Contact with and (suspected) exposure to COVID-19
CPT/HCPCS: 36415; 70450; 70496; 70498; 71045; 74176; 80053; 81000; 82947; 83690; 85025; 86141; 87636

== ENCOUNTER → 2022-12-13 | Outpatient (CLI) | payer MEDICARE ==
[~2022-12-13] MED LIST changes: -BETH25TA PO; +BETH25TA2 PO
--- NOTE | 2022-12-13 17:11 | Diagnostic Imaging Report ---
PELVIS/LAURA HIPS 5> VIEWS INDICATION: Bilateral hip pain COMPARISON: None available. TECHNIQUE: 2 views of each hip and AP view of the pelvis (total 5 views) FINDINGS: Moderate osteoarthritis of both hips. There are no features of avascular necrosis. No fracture or worrisome focal osseous lesion on either side. SI joints are grossly normal. Severe vascular calcifications are noted. IMPRESSION: Moderate osteoarthritis of both hips. Dictated by: Dictated on workstation # [id number]
== END ==
LOC: RAD 12:05
PROVIDERS: ATTEND Family Medicine
DX: M16.0 Bilateral primary osteoarthritis of hip (principal)
CPT/HCPCS: 73523